=== PATIENT | male | born 1945 | race Caucasian/White ===

== ENCOUNTER 2022-03-01 16:34 | Inpatient (IN) ==
[2022-03-01] MEDS ORDERED: ONDANSETRON INJ 2 MG/ML 2 ML VIAL IV STA (16:54)
--- NOTE | 2022-03-01 16:58 | Emergency Department Note ---
Impression & Plan Fall, Closed fracture of right hip ED Provider Note NAME: ANGELA MATHIS AGE: 76 SEX: M : 1945 ARRIVES VIA: Ambulance INFORMANT: Patient, EMS ED PROVIDER(S): Ryan Lomeli DO CHIEF COMPLAINT: Fall HPI: Patient is a 76-year-old male who presented to the emergency department for an evaluation after fall. The patient had a fall from 2 steps up. He landed on his right side. He struck the right side of his head he also injured his right hip. He was unable to stand and put any weight on his right lower extremity. 9 11 was called and the patient arrived at the emergency department via ambulance. He has a history of hypertension as well as diabetes. He was treated with pain medication prior to arrival. He states this pain is somewhat improved. He denies having any vomiting. He denies having any chest pain or abdominal pain. He denies having any back pain. The patient states that his pain is moderate to severe and worse with any movement or ambulation. ROS: See above HPI for pertinent positives & negatives. A total of 10 systems reviewed and were otherwise negative. PAST MEDICAL HISTORY: See Below PAST SURGICAL HISTORY: See Below FAMILY HISTORY: See Below SOCIAL HISTORY: See Below HOME MEDICATIONS: See Below ALLERGIES: See Below VITALS: See Below PHYSICAL EXAMINATION: GENERAL: The patient is awake and alert. Very anxious appearing. EYES: The conjunctivae are clear. The pupils are round and reactive. EARS, NOSE, MOUTH AND THROAT: The nose is without any evidence of any deformity. NECK: The neck is nontender and supple. RESPIRATORY: Normal respiratory effort is noted there is no evidence of wheezing rhonchi or rales CARDIOVASCULAR: Regular rate and rhythm noted there no murmurs rubs or gallops normal S1 normal S2. GASTROINTESTINAL: The abdomen is soft. Abdomen is nontender. MUSCULOSKELETAL/EXTREMITIES: External rotation is noted of the right lower extr emity. There is mild shortening. There is no swelling in the lower extremities. SKIN: There is no obvious evidence of any rash. There are no petechiae, pallor or cyanosis noted. Pulses are symmetric in both feet. NEUROLOGIC: Patient is awake alert and oriented x3 MEDICAL DECISION MAKING: The patient is a 76-year-old male who presented to the emergency department for an evaluation of right hip pain. The patient fell from a standing position but he was on a step. The patient had an injury to his head as well as his right hip. The patient was treated with IV pain medication in the emergency department. He was reevaluated multiple times. On x-ray he was found have signs of a right-sided hip fracture. I discussed his condition with the on-call [facility] hospitalist. They have agreed to evaluate the patient in the emergency department for further management and disposition. Triage Nursing notes reviewed. Prior medical records reviewed Vital Signs: reviewed and remarkable for elevated blood pressure. Differential diagnosis: Fracture, dislocation, neurovascular compromise, compartment syndrome, soft tissue injury, as well as other pathologies. ER treatment provided: See below Diagnostics interpreted by me: ECG: EKG was obtained in the emergency department. My interpretation is sinus rhythm at 81 bpm. First-degree AV block was noted. There was no ectopy. Early transition was noted. This was compared to a tracing from April 08, 2015. No changes were noted. Cardiac Monitoring: An order was placed for continuous cardiac monitoring. The monitor shows a rate of 76 bpm with sinus rhythm. Laboratory studies: As stated above and show below. Imaging studies: See below Consultation(s): I discussed this case with Peg who is on-call for the [facility]. Past Med/Surg History Medical History Depression DM type 2 (diabetes mellitus, type 2) Dyslipidemia GERD (gastroesophageal reflux disease) Hypertension RLS (restless legs syndrome) Surgical History No pertinent past surgical history Family History Father Hypertension Social History Smoking Status: Former smoker Tobacco Type: Cigarettes Hx Alcohol Use: No Hx Substance Use: No Preferred Language: Australian Communication Ability: Effective Dry Cleaning Checker Required: No Beliefs That Will Affect Care: None Current Living Situation: Spouse Other Information That Helps Us Care for You: No Feels Safe at Home: Yes Safety Concerns: Feels Safe At This Time Assistive Devices: Denture - Upper and Glasses Allergies Allergies Allergy/AdvReac Type Severity Reaction Status Date / Time Penicillins Allergy Unknown unsure Verified 03/01/22 19:10 Home Meds Home Medications Medication Instructions Recorded Confirmed atenolol 50 mg tablet (Tenormin) 50 mg PO BID #0 tabs 04/08/15 03/01/22 simvastatin 20 mg tablet (Zocor) 20 mg PO PM #0 tabs 04/08/15 03/01/22 metformin 500 mg tablet 1,000 mg PO QAM 07/19/19 03/01/22 aspirin 81 mg tablet,delayed 81 mg PO DAILY 03/01/22 03/01/22 release carbidopa 25 mg-levodopa 250 mg 1 tab PO HS 03/01/22 03/01/22 tablet citalopram 20 mg tablet 20 mg PO DAILY 03/01/22 03/01/22 famotidine 40 mg tablet 40 mg PO DAILY 03/01/22 03/01/22 hydrochlorothiazide 25 mg tablet 25 mg PO DAILY 03/01/22 03/01/22 lisinopril 10 mg tablet 10 mg PO DAILY 03/01/22 03/01/22 metformin 500 mg tablet 500 mg PO .MARCEL MEAL 03/01/22 03/01/22 Results & Data (ED) Vital Signs Vital Signs - 24 hr 03/01/22 16:46 03/01/22 16:49 03/01/22 16:50 Temperature 36.8 C Temperature Source Oral Pulse Rate 80 79 80 Pulse Rate from SpO2 Sensor 79 80 Pulse Rhythm Regular Pulse Strength Normal Respiratory Rate 20 16 16 Respiratory Effort / Characteristics Non-Labored Respiratory Depth Normal Blood Pressure 186/89 H Blood Pressure Mean 121 Pulse Oximetry 93 88 L 88 L Oxygen Delivery Method Room Air Sepsis Recent Fever Within 48 Hours No Sepsis New/Unexplained Change in Mental Status N/A Sepsis Action Taken by Nursing No Action Required 03/01/22 17:00 03/01/22 17:00 03/01/22 17:10 Temperature Temperature Source Pulse Rate 80 80 Pulse Rate from SpO2 Sensor 78 79 Pulse Rhythm Pulse Strength Respiratory Rate 14 19 Respiratory Effort / Characteristics Respiratory Depth Blood Pressure 193/114 H Blood Pressure Mean 140 Pulse Oximetry 100 98 Oxygen Delivery Method Sepsis Recent Fever Within 48 Hours Sepsis New/Unexplained Change in Mental Status Sepsis Action Taken by Nursing 03/01/22 17:50 03/01/22 17:50 03/01/22 18:00 Temperature Temperature Source Pulse Rate 77 Pulse Rate from SpO2 Sensor Pulse Rhythm Pulse Strength Respiratory Rate 14 Respiratory Effort / Characteristics Respiratory Depth Blood Pressure 187/87 H 172/84 H Blood Pressure Mean 120 113 Pulse Oximetry Oxygen Delivery Method Sepsis Recent Fever Within 48 Hours Sepsis New/Unexplained Change in Mental Status Sepsis Action Taken by Nursing 03/01/22 18:00 03/01/22 18:10 03/01/22 18:20 Temperature Temperature Source Pulse Rate 79 83 79 Pulse Rate from SpO2 Sensor Pulse Rhythm Pulse Strength Respiratory Rate 17 17 16 Respiratory Effort / Characteristics Respiratory Depth Blood Pressure Blood Pressure Mean Pulse Oximetry Oxygen Delivery Method Sepsis Recent Fever Within 48 Hours Sepsis New/Unexplained Change in Mental Status Sepsis Action Taken by Nursing 03/01/22 18:30 03/01/22 18:30 Temperature Temperature Source Pulse Rate 77 Pulse Rate from SpO2 Sensor Pulse Rhythm Pulse Strength Respiratory Rate 16 Respiratory Effort / Characteristics Respiratory Depth Blood Pressure 175/87 H Blood Pressure Mean 116 Pulse Oximetry Oxygen Delivery Method Sepsis Recent Fever Within 48 Hours Sepsis New/Unexplained Change in Mental Status Sepsis Action Taken by Usp Medications Current Medication List: was personally reviewed by me Laboratory Data Attestation: I reviewed the patient's lab results. Result diagrams: 03/01/22 18:00 03/01/22 18:00 Lab Results 03/01/22 03/01/22 03/01/22 Range/Units 17:10 18:00 18:00 WBC 6.30 (4.8-10.8) K/ul RBC 4.05 L (4.63-6.08) M/uL Hgb 11.4 L (14.0-18.0) g/dl Hct 34.1 L (40.1-51.0) % MCV 84.2 (80.0-100.0) fL MCH 28.1 (25.0-34.0) pg MCHC 33.4 (32.0-36.0) g/dL RDW Std Deviation 40.1 (36.4-46.3) fL RDW Coeff of Herb 13.0 (11.5-14.5) % Plt Count 224 (130-400) K/uL MPV 9.3 L (9.4-12.4) fL Immature Gran % (Auto) 1.1 % Neut % (Auto) 62.2 % Lymph % (Auto) 21.1 % [place] % (Auto) 8.4 % Eos % (Auto) 6.7 % Baso % (Auto) 0.5 % Neut # (Auto) 3.92 (1.4-6.5) K/uL Lymph # (Auto) 1.33 (1.2-3.4) K/uL [place] # (Auto) 0.53 (0.24-0.82) K/uL Eos # (Auto) 0.42 (0-0.50) K/uL Baso # (Auto) 0.03 (0-0.2) K/uL Immature Gran # (Auto) 0.07 H (0.00-0.02) K/uL PT INR APTT PTT Ratio Sodium (136-145) mmol/L Potassium (3.5-5.1) mmol/L Chloride (98-107) mmol/L Carbon Dioxide (21-32) mmol/L Anion Gap (3-11) BUN (6-23) mg/dl Creatinine (0.6-1.4) mg/dl Est Cr Clr Drug Dosing ml/min Est GFR ( Amer) ml/min Est GFR (Non-Af Amer) ml/min BUN/Creatinine Ratio (10-20) Glucose (70-99(Fasting)) mg/dl Calcium (8.5-10.1) mg/dl Total Bilirubin (0.2-1.0) mg/dl AST (13-39) U/L ALT (7-52) U/L Alkaline Phosphatase (34-104) U/L Troponin I High Sens 7.3 (0-20) pg/ml Total Protein (6.0-8.3) gm/dl Albumin (3.4-5.0) gm/dl Globulin (2.5-4.0) gm/dl Albumin/Globulin Ratio (0.9-2) Lipase (11-82) U/L SARS-CoV-2, RNA, NAAT NEGATIVE (NEGATIVE) 03/01/22 03/01/22 Range/Units 18:00 18:00 WBC (4.8-10.8) K/ul RBC (4.63-6.08) M/uL Hgb (14.0-18.0) g/dl Hct (40.1-51.0) % MCV (80.0-100.0) fL MCH (25.0-34.0) pg MCHC (32.0-36.0) g/dL RDW Std Deviation (36.4-46.3) fL RDW Coeff of Herb (11.5-14.5) % Plt Count (130-400) K/uL MPV (9.4-12.4) fL Immature Gran % (Auto) % Neut % (Auto) % Lymph % (Auto) % [place] % (Auto) % Eos % (Auto) % Baso % (Auto) % Neut # (Auto) (1.4-6.5) K/uL Lymph # (Auto) (1.2-3.4) K/uL [place] # (Auto) (0.24-0.82) K/uL Eos # (Auto) (0-0.50) K/uL Baso # (Auto) (0-0.2) K/uL Immature Gran # (Auto) (0.00-0.02) K/uL PT Cancelled INR Cancelled APTT Cancelled PTT Ratio Cancelled Sodium 131 L (136-145) mmol/L Potassium 4.3 (3.5-5.1) mmol/L Chloride 96 L (98-107) mmol/L Carbon Dioxide 29 (21-32) mmol/L Anion Gap 6 (3-11) BUN 17 (6-23) mg/dl Creatinine 0.91 (0.6-1.4) mg/dl Est Cr Clr Drug Dosing 88.4 ml/min Est GFR ( Amer) 93.9 ml/min Est GFR (Non-Af Amer) 81.0 ml/min BUN/Creatinine Ratio 18.7 (10-20) Glucose 108 H (70-99(Fasting)) mg/dl Calcium 9.2 (8.5-10.1) mg/dl Total Bilirubin 0.8 (0.2-1.0) mg/dl AST 24 (13-39) U/L ALT 23 (7-52) U/L Alkaline Phosphatase 68 (34-104) U/L Troponin I High Sens (0-20) pg/ml Total Protein 7.6 (6.0-8.3) gm/dl Albumin 3.9 (3.4-5.0) gm/dl Globulin 3.7 (2.5-4.0) gm/dl Albumin/Globulin Ratio 1.1 (0.9-2) Lipase 14 (11-82) U/L SARS-CoV-2, RNA, NAAT (NEGATIVE) Administered Medications Acetaminophen (Acetaminophen 500 Mg Tab) 1,000 mg PO Q8H ZULEYMA Stop: 03/31/22 21:21 Last Admin: 03/01/22 21:57 Dose: 1,000 mg Documented By: ZOILA Atenolol (Atenolol 50 Mg Tablet) 50 mg PO BID ZULEYMA Stop: 03/31/22 21:21 Last Admin: 03/01/22 21:58 Dose: 50 mg Documented By: ZOILA Carbidopa/Levodopa (Carbidopa/Levodopa 25-250 1 Ea Tab) 1 tab PO HS ZULEYMA Stop: 03/31/22 21:21 Last Admin: 03/01/22 21:58 Dose: 1 tab Documented By: ZOILA Insulin Aspart (Insulin Aspart Per Unit) 0 units SC ACHS [facility] Stop: 03/31/22 21:21 Last Admin: 03/01/22 21:58 Dose: Not Given Documented By: ZOILA Morphine Sulfate (Morphine Sulfate 4 Mg/Ml 1 Ml Carp\Vial) 4 mg IV Q4H PRN PRN Reason: Pain (7,8,9,10) Stop: 03/15/22 21:21 Last Admin: 03/01/22 21:57 Dose: 4 mg Documented By: ZOILA Senna/Docusate Sodium (Docusate Sodium/Senna 50/8.6mg Tab) 2 tab PO HS [facility] Stop: 03/31/22 21:21 Last Admin: 03/01/22 21:57 Dose: 2 tab Documented By: ZOILA Simvastatin (Simvastatin 20 Mg Tab) 20 mg PO PM ZULEYMA Stop: 03/31/22 21:21 Last Admin: 03/01/22 21:58 Dose: 20 mg Documented By: ZOILA Discontinued Medications Fentanyl Citrate (Fentanyl Citrate 100 Mcg/2 Ml Vial) 50 mcg IV Q15M PRN PRN Reason: Pain Stop: 03/15/22 16:53 Last Admin: 03/01/22 18:23 Dose: 50 mcg Documented By: Admin: 03/01/22 17:15 Dose: 50 mcg Documented By: JAIME Fentanyl Citrate (Fentanyl Citrate 100 Mcg/2 Ml Vial) 50 mcg IV NOW STA Stop: 03/01/22 20:14 Last Admin: 03/01/22 20:14 Dose: 50 mcg Documented By: MUSTAPHA Ondansetron HCl (Ondansetron Inj 2 Mg/Ml 2 Ml Vial) 4 mg IV NOW STA Stop: 03/01/22 16:55 Last Admin: 03/01/22 17:13 Dose: 4 mg Documented By: GGG Imaging Data Radiologist's Impression: Cervical Spine CT 03/01/22 16:54 CT OF THE CERVICAL SPINE WITHOUT CONTRAST CLINICAL HISTORY: Fall. COMPARISON STUDY: No previous studies for comparison. TECHNIQUE: Helical axial images of the cervical spine were obtained without IV contrast. Sagittal and coronal reconstructions were viewed. Automated exposure control was utilized for the study. A dose lowering technique was utilized adhering to the principles of ALARA. FINDINGS: Alignment of the cervical spine is anatomic. Vertebral body heights are maintained. No acute cervical spine fracture or subluxation is present. There is no prevertebral edema. Facet joints are intact. Moderate multilevel disc space narrowing, osteophytosis and facet arthrosis is present. Minimal secretions within the sphenoid sinuses. IMPRESSION: No acute cervical spine fracture or subluxation. ACT 112: Negative or not required by law. Electronically signed by: Kashmir Presley M.D. 03/01/2022 6:[address] 03/01/22 16:54 CT OF THE HEAD WITHOUT CONTRAST CLINICAL HISTORY: Fall. COMPARISON STUDY: No previous studies for comparison. CT DOSE: 1287.95 mGycm TECHNIQUE: Helical axial images of the head were obtained without IV contrast. Automated exposure control was utilized for the study. A dose lowering technique was utilized adhering to the principles of ALARA. FINDINGS: No acute intracranial hemorrhage, midline shift or mass effect is present. The ventricular system is unremarkable. The basal cisterns are patent. No extra-axial collections are present. There are no findings to suggest acute dural sinus thrombosis or acute territorial infarct. There is no acute calvarial fracture. Moderate ethmoid sinus mucosal thickening is present. IMPRESSION: 1. No acute intracranial findings. 2. No acute calvarial fracture. 3. Ethmoid sinus mucosal thickening. ACT 112: Negative or not required by law. Electronically signed by: Kashmir Presley M.D. 03/01/2022 5:56 PM Hip/Pelvis X-Ray 03/01/22 16:54 XR hip RT 2V w pelvis CLINICAL HISTORY: fall TECHNIQUE: 2 views of the right hip and single frontal view of the pelvis were obtained. Comparison: None available at the time of this dictation. FINDINGS: There is a fracture of the femoral neck with overriding of fragments. Mild degenerative changes are seen in the joints. Soft tissue swelling is seen. IMPRESSION: Right femoral neck fracture with associated soft tissue swelling. ACT 112: Negative or not required by law. Electronically signed by: Kalen Payne M.D. 03/01/2022 5:44 PM Chest X-Ray 03/01/22 16:55 XR chest 1V portable CLINICAL HISTORY: Chest pain, nonspecific TECHNIQUE: Single frontal radiograph of the chest was obtained. Comparison: None available at the time of this dictation. FINDINGS: No lines and tubes are seen. The cardiomediastinal silhouette is normal. Lungs are underinflated but clear. No evidence of pleural effusion or pneumothorax. IMPRESSION: Lungs are underinflated without evidence of acute abnormality. ACT 112: Negative or not required by law. Electronically signed by: Kalen Payne M.D. 03/01/2022 5:43 PM Discharge Plan Visit Data Chief Complaint: Fall ED Provider: Ryan Lomeli Discharge Problem: Fall, Closed fracture of right hip Patient Disposition: Admitted As Inpatient Discharge Instructions Interventions: ED Discharge Assessment Last Done: 03/01/22 20:40 : Fall Qualifiers: Encounter type: initial encounter Qualified Code(s): W19.XXXA - Unspecified fall, initial encounter Closed fracture of right hip Qualifiers: Encounter type: initial encounter Qualified Code(s): S72.001A - Fracture of unspecified part of neck of right femur, initial encounter for closed fracture
[2022-03-01] MEDS: fentaNYL citrate 100 MCG/2 ML VIAL IV PRN ×2 (17:15→18:23)
--- NOTE | 2022-03-01 17:45 | XRay Report ---
XR hip RT 2V w pelvis CLINICAL HISTORY: fall TECHNIQUE: 2 views of the right hip and single frontal view of the pelvis were obtained. Comparison: None available at the time of this dictation. FINDINGS: There is a fracture of the femoral neck with overriding of fragments. Mild degenerative changes are s een in the joints. Soft tissue swelling is seen. IMPRESSION: Right femoral neck fracture with associated soft tissue swelling. ACT 112: Negative or not required by law. Electronically signed by: Kalen Payne M.D. 03/01/2022 5:44 PM
--- NOTE | 2022-03-01 17:45 | XRay Report ---
XR chest 1V portable CLINICAL HISTORY: Chest pain, nonspecific TECHNIQUE: Single frontal radiograph of the chest was obtained. Comparison: None available at the time of this dictation. FINDINGS: No lines and tubes are seen. The cardiomediastinal silhouette is normal. Lungs are underinflated but clear. No evidence of pleural effusion or pneumothorax. IMPRESSION: Lungs are underinflated without evidence of acute abnormality. ACT 112: Negative or not required by law. Electronically signed by: Kalen Payne M.D. 03/01/2022 5:43 PM
--- NOTE | 2022-03-01 17:58 | CT Scan Report ---
CT OF THE HEAD WITHOUT CONTRAST CLINICAL HISTORY: Fall. COMPARISON STUDY: No previous studies for comparison. CT DOSE: 1287.95 mGycm TECHNIQUE: Helical axial images of the head were obtained without IV contrast. Automated exposure con trol was utilized for the study. A dose lowering technique was utilized adhering to the principles o f ALARA. FINDINGS: No acute intracranial hemorrhage, midline shift or mass effect is present. The ventricular system is unremarkable. The basal cisterns are patent. No extra-axial collections are present. There are no findings to suggest acute dural sinus thrombosis or acute territorial infarct. There is no acu te calvarial fracture. Moderate ethmoid sinus mucosal thickening is present. IMPRESSION: 1. No acute intracranial findings. 2. No acute calvarial fracture. 3. Ethmoid sinus mucosal thickening. ACT 112: Negative or not required by law. Electronically signed by: Kashmir Presley M.D. 03/01/2022 5:56 PM
--- NOTE | 2022-03-01 18:02 | CT Scan Report ---
CT OF THE CERVICAL SPINE WITHOUT CONTRAST CLINICAL HISTORY: Fall. COMPARISON STUDY: No previous studies for comparison. TECHNIQUE: Helical axial images of the cervical spine were obtained without IV contrast. Sagittal a nd coronal reconstructions were viewed. Automated exposure control was utilized for the study. A do se lowering technique was utilized adhering to the principles of ALARA. FINDINGS: Alignment of the cervical spine is anatomic. Vertebral body heights are maintained. No acut e cervical spine fracture or subluxation is present. There is no prevertebral edema. Facet joints are intact. Moderate multilevel disc space narrowing, osteophytosis and facet arthrosis is present. Min imal secretions within the sphenoid sinuses. IMPRESSION: No acute cervical spine fracture or subluxation. ACT 112: Negative or not required by law. Electronically signed by: Kashmir Presley M.D. 03/01/2022 6:00 PM
[2022-03-01 18:24] LABS: Basophils # (auto) 0.03 K/uL (0-0.2); Basophils % (auto) 0.5 %; Eosinophils # (auto) 0.42 K/uL (0-0.50); Eosinophils % (auto) 6.7 %; Hematocrit (blood only) 34.1 % (40.1-51.0); Hemoglobin 11.4 g/dl (14.0-18.0); Immature Granulocytes # (auto) 0.07 K/uL (0.00-0.02); Immature Granulocytes % (auto) 1.1 %; Lymphocytes # (auto) 1.33 K/uL (1.2-3.4); Lymphocytes % (auto) 21.1 %; Mean Corpuscular Hemoglobin 28.1 pg (25.0-34.0); Mean Corpuscular Hgb Conc 33.4 g/dL (32.0-36.0); Mean Corpuscular Volume 84.2 fL (80.0-100.0); Mean Platelet Volume 9.3 fL (9.4-12.4); Monocytes # (auto) 0.53 K/uL (0.24-0.82); Monocytes % (auto) 8.4 %; Neutrophils # (auto) 3.92 K/uL (1.4-6.5); Neutrophils % (auto) 62.2 %; Platelet Count 224 K/uL (130-400); RDW Standard Deviation 40.1 fL (36.4-46.3); Red Blood Count 4.05 M/uL (4.63-6.08)
[2022-03-01 18:41] LABS: Albumin Globulin Ratio 1.1 (0.9-2); Albumin Level 3.9 gm/dl (3.4-5.0); BUN Creatinine Ratio 18.7 (10-20); Bilirubin,Total 0.8 mg/dl (0.2-1.0); Calcium 9.2 mg/dl (8.5-10.1); Creatinine Clr Calc Pharmacy 88.4 ml/min; Est GFR (African American) 93.9 ml/min; Globulin 3.7 gm/dl (2.5-4.0); Potassium 4.3 mmol/L (3.5-5.1); Total Protein 7.6 gm/dl (6.0-8.3)
[2022-03-01 19:24] LABS: Partial Thromboplastin Time 28.2 Seconds (21.0-31.0)
--- NOTE | 2022-03-01 20:00 | History & Physical Report ---
Date of Service March 01, 2022 Assessment & Plan (1) Fracture of femoral neck, right: Plan: Admit to [facility] Patient presenting from home for evaluation after a mechanical fall and right hip pain X-ray shows right femoral neck fracture Ortho consult - Dr. Salmeron notified EKG and CXR reviewed. Patient considered acceptable risk to proceed to surgery. N.p.o. after midnight Postop management as per Ortho (2) Hypertension: Plan: BP elevated on presentation, likely secondary to pain. BP improved once pain has been controlled. Continue home meds including atenolol, HCTZ, lisinopril (3) DM type 2 (diabetes mellitus, type 2): Plan: Hgb A1c 6.9 09/2021 Hold oral agents and utilize NovoLog per protocol while hospitalized (4) Dyslipidemia: Plan: Continue statin (5) RLS (restless legs syndrome): Plan: Continue carbidopa-levodopa HS (6) GERD (gastroesophageal reflux disease): Plan: Continue H2 jo-ann (7) Depression: Plan: Continue citalopram DVT prophylaxis SCDs due to likely surgical procedure tomorrow. Postop DVT prophylaxis as per Ortho. History of Present Illness Chief Complaint: Fall, right hip pain Primary Care Provider: Arin Tay PA-C 76-year-old male with PMH DM type II, HTN, GERD, RLS, and other problems listed below who presents to the ED for evaluation after a fall and subsequent right hip pain. Patient reports that he was walking up the stairs into his home when he missed stepped and fell down about 2 stairs onto his right side. Patient reports also striking his head. He denies any associated loss of consciousness or preceding chest pain, shortness of breath, lightheadedness, dizziness. Patient was unable to get up off the ground and EMS was called and brought to the ED for further evaluation. Patient reports he otherwise has been feeling well recently. Patient reports that he is fairly active and was just returning home from [facility] today. Patient states that he can climb a flight of stairs without difficulty. Patient denies any recent episodes of chest pain or shortness of breath. No other recent illnesses, fevers, chills. He denies abdominal pain, nausea, vomiting, diarrhea. No urinary symptoms. In the ED, patient is found to have a right femoral neck fracture. He was moderately hypertensive on presentation however this improved with pain control. Patient received IV Zofran and IV fentanyl. Allergies Allergy/AdvReac Type Severity Reaction Status Date / Time Penicillins Allergy Unknown unsure Verified 03/01/22 19:10 Home Medications Medication Instructions Recorded Confirmed Type atenolol 50 mg tablet (Tenormin) 50 mg PO BID #0 tabs 04/08/15 03/01/22 History simvastatin 20 mg tablet (Zocor) 20 mg PO PM #0 tabs 04/08/15 03/01/22 History metformin 500 mg tablet 1,000 mg PO QAM 07/19/19 03/01/22 History aspirin 81 mg tablet,delayed 81 mg PO DAILY 03/01/22 03/01/22 History release carbidopa 25 mg-levodopa 250 mg 1 tab PO HS 03/01/22 03/01/22 History tablet citalopram 20 mg tablet 20 mg PO DAILY 03/01/22 03/01/22 History famotidine 40 mg tablet 40 mg PO DAILY 03/01/22 03/01/22 History hydrochlorothiazide 25 mg tablet 25 mg PO DAILY 03/01/22 03/01/22 History lisinopril 10 mg tablet 10 mg PO DAILY 03/01/22 03/01/22 History metformin 500 mg tablet 500 mg PO .MARCEL MEAL 03/01/22 03/01/22 History Past Med/Surg History Medical History Depression DM type 2 (diabetes mellitus, type 2) Dyslipidemia GERD (gastroesophageal reflux disease) Hypertension RLS (restless legs syndrome) Surgical History No pertinent past surgical history Family History Father Hypertension Social History Smoking Status: Former smoker Tobacco Type: Cigarettes Hx Alcohol Use: No Hx Substance Use: No Preferred Language: Romanian Communication Ability: Effective 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 Beliefs That Will Affect Care: None Current Living Situation: Spouse Other Information That Helps Us Care for You: No Feels Safe at Home: Yes Safety Concerns: Feels Safe At This Time Assistive Devices: Denture - Upper and Glasses Review of Systems Review of Systems: ROS per HPI, all other systems reviewed and negative Physical Exam Constitutional: WD/WN, vitals as above Eyes: PERRL, conjunctivae normal, anicteric sclerae ENMT: external ear and nose normal, oropharynx normal Respiratory: normal respiratory effort, lungs clear to auscultation Cardiovascular: Rate/Rhythm: regular rate and regular rhythm Vessels: normal peripheral pulses Extremities: no edema Gastrointestinal (Abdomen): normal bowel sounds, soft, nontender, no hepatosplenomegaly Musculoskeletal: Pain with palpation over right hip, CSM checks intact RLE Skin: no rashes, warm and dry Neurologic: PERRL, EOMI, accommodation nl, no face palsy, no dysarthria Psychiatric: A+Ox3, euthymic affect Results & Data Results & Data ([facility]) Vital Signs (Past 12 Hours) Vital Signs Temp Pulse Resp BP Pulse Ox O2 Del Method 03/01/22 16:46 36.8 C 80 20 186/89 H 93 Room Air Laboratory Results Short CBC 03/01/22 Range/Units 18:00 WBC 6.30 (4.8-10.8) K/ul Hgb 11.4 L (14.0-18.0) g/dl Hct 34.1 L (40.1-51.0) % Plt Count 224 (130-400) K/uL BMP 03/01/22 18:00 Sodium 131 L Potassium 4.3 Chloride 96 L Carbon Dioxide 29 BUN 17 Creatinine 0.91 Glucose 108 H Calcium 9.2 Liver Function 03/01/22 Range/Units 18:00 Total Bilirubin 0.8 (0.2-1.0) mg/dl AST 24 (13-39) U/L ALT 23 (7-52) U/L Alkaline Phosphatase 68 (34-104) U/L Albumin 3.9 (3.4-5.0) gm/dl Diagnostic Findings Cervical Spine CT 03/01/22 16:54 CT OF THE CERVICAL SPINE WITHOUT CONTRAST CLINICAL HISTORY: Fall. COMPARISON STUDY: No previous studies for comparison. TECHNIQUE: Helical axial images of the cervical spine were obtained without IV contrast. Sagittal and coronal reconstructions were viewed. Automated exposure control was utilized for the study. A dose lowering technique was utilized adhering to the principles of ALARA. FINDINGS: Alignment of the cervical spine is anatomic. Vertebral body heights a re maintained. No acute cervical spine fracture or subluxation is present. There is no prevertebral edema. Facet joints are intact. Moderate multilevel disc space narrowing, osteophytosis and facet arthrosis is present. Minimal secretions within the sphenoid sinuses. IMPRESSION: No acute cervical spine fracture or subluxation. ACT 112: Negative or not required by law. Electronically signed by: Kashmir Presley M.D. 03/01/2022 6:[address] 03/01/22 16:54 CT OF THE HEAD WITHOUT CONTRAST CLINICAL HISTORY: Fall. COMPARISON STUDY: No previous studies for comparison. CT DOSE: 1287.95 mGycm TECHNIQUE: Helical axial images of the head were obtained without IV contrast. Automated exposure control was utilized for the study. A dose lowering technique was utilized adhering to the principles of ALARA. FINDINGS: No acute intracranial hemorrhage, midline shift or mass effect is present. The ventricular system is unremarkable. The basal cisterns are patent. No extra-axial collections are present. There are no findings to suggest acute dural sinus thrombosis or acute territorial infarct. There is no acute calvarial fracture. Moderate ethmoid sinus mucosal thickening is present. IMPRESSION: 1. No acute intracranial findings. 2. No acute calvarial fracture. 3. Ethmoid sinus mucosal thickening. ACT 112: Negative or not required by law. Electronically signed by: Kashmir Presley M.D. 03/01/2022 5:56 PM Hip/Pelvis X-Ray 03/01/22 16:54 XR hip RT 2V w pelvis CLINICAL HISTORY: fall TECHNIQUE: 2 views of the right hip and single frontal view of the pelvis were obtained. Comparison: None available at the time of this dictation. FINDINGS: There is a fracture of the femoral neck with overriding of fragments. Mild degenerative changes are seen in the joints. Soft tissue swelling is seen. IMPRESSION: Right femoral neck fracture with associated soft tissue swelling. ACT 112: Negative or not required by law. Electronically signed by: Kalen Payne M.D. 03/01/2022 5:44 PM Chest X-Ray 03/01/22 16:55 XR chest 1V portable CLINICAL HISTORY: Chest pain, nonspecific TECHNIQUE: Single frontal radiograph of the chest was obtained. Comparison: None available at the time of this dictation. FINDINGS: No lines and tubes are seen. The cardiomediastinal silhouette is normal. Lungs are underinflated but clear. No evidence of pleural effusion or pneumothorax. IMPRESSION: Lungs are underinflated without evidence of acute abnormality. ACT 112: Negative or not required by law. Electronically signed by: Kalen Payne M.D. 03/01/2022 5:43 PM Code Status & VTE Plan VTE Prophylaxis Plan VTE Prophylaxis will be ordered: Yes Supervising Physician Co-Signing Physician Notes I have seen and examined the patient and have discussed the case with the provider above. I agree with the assessment and plan as stated. 76 yo M presents with a mechanical fall backwards with subsequent right hip fracture. He reports hitting his head on the sidewalk which she states does not hurt at this time. There is no laceration or bruise that is evident on physical exam. He denies any headache at this time or other pain. He reports no history of issues with anesthesia either with himself or others in his family. He denies any history of blood clots. He denies any chest pain or shortness of breath in the last 6 months and is a very active 76-year-old man going bowling frequently. He reports being able to climb a flight of stairs without stopping, only limited by his occasional leg pains. He takes baby aspirin daily and is a diabetic on medications. Kidney function is normal. He has evidence of mild anemia on CBC but this is around his baseline H&H of 12 and 35. On physical exam he is well-nourished and well- developed and in no acute distress. Heart rate is regular with regular rhythm. He is not tachypneic and is mentating clearly. Lungs are clear to auscultation and abdomen is soft nontender nondistended. Extremities are warm and well- perfused. Head is noncephalic atraumatic. Pupils are equal bilaterally. Overall this is a 76-year-old man with a traumatic right hip fracture after fall. It is likely he will need some type of operative fix to his fracture. There is no further work-up that would optimize him for surgery at this point and he should proceed to surgery if orthopedics feels that is in his best interest. He is a very active 76-year-old and any chance that a procedure will help him get back on his feet quickly would be important for his quality of life. The plan was discussed with his and daughter at bedside and all questions were answered to their satisfaction. DO Sb
[2022-03-01] MEDS ORDERED: fentaNYL citrate 100 MCG/2 ML VIAL IV STA (20:13)
--- NOTE | 2022-03-01 20:22 | XRay Report ---
XR ankle RT 2V CLINICAL HISTORY: fall, right ankle pain COMPARISON: None FINDINGS: Alignment of the right ankle is anatomic. No acute fracture. Talar dome is intact. Vascula r calcification is incidentally noted within the calf vessels. IMPRESSION: No fracture or dislocation within the right ankle. ACT 112: Negative or not required by law. Electronically signed by: Kashmir Presley M.D. 03/01/2022 8:20 PM
[2022-03-01] MEDS ORDERED: GLUCOSE 10 TAB/TUBE PO PRN (21:22)
[2022-03-01] MEDS ORDERED: bisacodyL 10 MG SUPP PR PRN (21:22)
[2022-03-01] MEDS ORDERED: ONDANSETRON INJ 2 MG/ML 2 ML VIAL IV PRN ×2 (21:22)
[2022-03-01] MEDS ORDERED: MAGNESIUM HYDROXIDE SUSP 30 ML UDC PO PRN (21:22)
[2022-03-01] MEDS ORDERED: NALOXONE HCL 0.4 MG/1 ML VIAL/CARP IV PRN (21:22)
[2022-03-01] MEDS ORDERED: DEXTROSE 50% 50 ML SYRINGE IV PRN (21:22)
[2022-03-01] MEDS ORDERED: GLUCAGON FOR INJ 1 MG VIAL SQ PRN (21:22)
[2022-03-01] MEDS ORDERED: GLUCOSE 40% GEL 15 GM TUBE PO PRN (21:22)
[2022-03-01] MEDS ORDERED: CARBOHYDRATES FOR HYPOGLYCEMIA PO PRN (21:22)
[2022-03-01] MEDS: DOCUSATE SODIUM/SENNA 50/8.6MG TAB PO SCH (21:57)
[2022-03-01] MEDS: ACETAMINOPHEN 500 MG TAB PO SCH (21:57)
[2022-03-01] MEDS: MoRPHine SULFATE 4 MG/ML 1 ML CARP\\VIAL IV PRN (21:57)
[2022-03-01] MEDS: ATENOLOL 50 MG TABLET PO SCH (21:58)
[2022-03-01] MEDS: SIMVASTATIN 20 MG TAB PO SCH (21:58)
[2022-03-01] MEDS: INSULIN ASPART PER UNIT SC SCH (21:58)
[2022-03-01] MEDS: CARBIDOPA/LEVODOPA 25-250 1 EA TAB PO SCH (21:58)
[2022-03-02] MEDS: MoRPHine SULFATE 4 MG/ML 1 ML CARP\\VIAL IV PRN ×4 (02:32→21:28)
[2022-03-02] MEDS ORDERED: ceFAZolin 2000MG 2,000 MG/15 ML SYR IV SCH ×2 (06:00→21:00)
[2022-03-02] MEDS ORDERED: TRANEXAMIC ACID / 0.7% NACL 1,000 MG/100 ML BAG IV SCH ×3 (06:00→06:30)
[2022-03-02] MEDS: ACETAMINOPHEN 500 MG TAB PO SCH ×3 (06:11→21:13)
[2022-03-02 06:12] LABS: Hematocrit (blood only) 33.1 % (40.1-51.0); Hemoglobin 10.9 g/dl (14.0-18.0); Mean Corpuscular Hemoglobin 27.7 pg (25.0-34.0); Mean Corpuscular Hgb Conc 32.9 g/dL (32.0-36.0); Mean Platelet Volume 9.1 fL (9.4-12.4); Platelet Count 188 K/uL (130-400); RDW Coefficient of Variation 13.2 % (11.5-14.5); RDW Standard Deviation 39.8 fL (36.4-46.3); Red Blood Count 3.94 M/uL (4.63-6.08); White Blood Count 7.41 K/ul (4.8-10.8)
--- NOTE | 2022-03-02 06:27 | Orthopedic Consultation ---
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 After orthopedic consult discussing the patients treatment options of conservative versus surgical intervention, the patient agreed for a planned hemiarthroplasty. Since the patient was ambulatory prior to the injury and to avoid the risks of bed sores, pulmonary complications, and to give the patient the best chance for ambulation, I recommended surgery. The patient understands the risks of surgery, which include but are not limited to: bleeding, infection, re-operation, damage to nerves and arteries, continued pain, failure of the hardware, fracture, dislocation, DVT, IA, stroke, and . In addition the patient is aware of the 20-30% morbidity associated with hip fracture for up to 1 year following a hip fracture. The patient understands all of these instructions and explanations, all of their questions have been satisfactorily addressed. The patient has elected to proceed with surgery and the informed consent was signed. Continue pain control. Has been NPO after midnight. The patient was admitted to the Hospitalist service. The patient has been placed on the add-on list for today. Patient has been medically cleared. Present on Admission?: Yes History of Present Illness Reason for Consultation: Right hip fracture Requesting Physician: Polina Salmeron MD Attending Physician: Aleksandra Basurto, History of Present Illness Adán is a pleasant 76 yo male with PMHx of HTN and DM, who fell on stairs injuring his right hip. He was brought to ED where x-rays were obtained and he was found to have a femoral neck fracture. He noted that his right leg did go numb immediately after the fall. He has hip/groin pain and is unable to bare weight. He has been admitted to the hospitalist service. I was consulted for further evaluation and treatment of his right hip fracture. Allergies Allergy/AdvReac Type Severity Reaction Status Date / Time Penicillins Allergy Unknown unsure Verified 03/01/22 19:10 Home Medications Medication Instructions Recorded Confirmed Type atenolol 50 mg tablet (Tenormin) 50 mg PO BID #0 tabs 04/08/15 03/01/22 History simvastatin 20 mg tablet (Zocor) 20 mg PO PM #0 tabs 04/08/15 03/01/22 History metformin 500 mg tablet 1,000 mg PO QAM 07/19/19 03/01/22 History aspirin 81 mg tablet,delayed 81 mg PO DAILY 03/01/22 03/01/22 History release carbidopa 25 mg-levodopa 250 mg 1 tab PO HS 03/01/22 03/01/22 History tablet citalopram 20 mg tablet 20 mg PO DAILY 03/01/22 03/01/22 History famotidine 40 mg tablet 40 mg PO DAILY 03/01/22 03/01/22 History hydrochlorothiazide 25 mg tablet 25 mg PO DAILY 03/01/22 03/01/22 History lisinopril 10 mg tablet 10 mg PO DAILY 03/01/22 03/01/22 History metformin 500 mg tablet 500 mg PO .MARCEL MEAL 03/01/22 03/01/22 History Patient History Medical History Depression DM type 2 (diabetes mellitus, type 2) Dyslipidemia GERD (gastroesophageal reflux disease) Hypertension RLS (restless legs syndrome) Surgical History No pertinent past surgical history Family History Father Hypertension Social History Smoking Status: Former smoker Tobacco Type: Cigarettes Hx Alcohol Use: No Hx Substance Use: No Preferred Language: Sri Lankan Communication Ability: Effective 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 BCR < 2 sec. Wiggling toes. Shortened and externally rotated Results & Data ([facility]) Vital Signs (Past 12 Hours) Vital Signs Temp Pulse Pulse Resp BP BP Pulse Ox 03/02/22 00:00 37 C 71 20 166/83 H 95 03/01/22 21:22 36.6 C 76 18 173/79 H 95 03/01/22 20:40 03/01/22 20:10 80 13 03/01/22 20:00 81 16 03/01/22 20:00 169/92 H 03/01/22 19:50 80 15 03/01/22 19:40 80 15 03/01/22 19:30 77 15 03/01/22 19:30 151/82 H 03/01/22 19:20 80 21 03/01/22 19:10 80 17 03/01/22 19:00 78 13 03/01/22 19:00 149/77 H 03/01/22 18:57 79 17 03/01/22 18:57 158/77 H 03/01/22 18:50 80 16 03/01/22 18:40 77 18 03/01/22 18:30 77 16 03/01/22 18:30 175/87 H O2 Del Method O2 Flow Rate 03/02/22 00:00 Room Air 03/01/22 21:22 Nasal Cannula 2 03/01/22 20:40 Room Air 03/01/22 20:10 03/01/22 20:00 03/01/22 20:00 03/01/22 19:50 03/01/22 19:40 03/01/22 19:30 03/01/22 19:30 03/01/22 19:20 03/01/22 19:10 03/01/22 19:00 03/01/22 19:00 03/01/22 18:57 03/01/22 18:57 03/01/22 18:50 03/01/22 18:40 03/01/22 18:30 03/01/22 18:30 Laboratory Results Laboratory Results WBC 7.41 K/ul (4.8-10.8) 03/02/22 05:42 RBC 3.94 M/uL (4.63-6.08) L 03/02/22 05:42 Hgb 10.9 g/dl (14.0-18.0) L 03/02/22 05:42 Hct 33.1 % (40.1-51.0) L 03/02/22 05:42 MCV 84.0 fL (80.0-100.0) 03/02/22 05:42 MCH 27.7 pg (25.0-34.0) 03/02/22 05:42 MCHC 32.9 g/dL (32.0-36.0) 03/02/22 05:42 RDW Std Deviation 39.8 fL (36.4-46.3) 03/02/22 05:42 RDW Coeff of Herb 13.2 % (11.5-14.5) 03/02/22 05:42 Plt Count 188 K/uL (130-400) 03/02/22 05:42 MPV 9.1 fL (9.4-12.4) L 03/02/22 05:42 Immature Gran % (Auto) 1.1 % 03/01/22 18:00 Neut % (Auto) 62.2 % 03/01/22 18:00 Lymph % (Auto) 21.1 % 03/01/22 18:00 [place] % (Auto) 8.4 % 03/01/22 18:00 Eos % (Auto) 6.7 % 03/01/22 18:00 Baso % (Auto) 0.5 % 03/01/22 18:00 Neut # (Auto) 3.92 K/uL (1.4-6.5) 03/01/22 18:00 Lymph # (Auto) 1.33 K/uL (1.2-3.4) 03/01/22 18:00 [place] # (Auto) 0.53 K/uL (0.24-0.82) 03/01/22 18:00 Eos # (Auto) 0.42 K/uL (0-0.50) 03/01/22 18:00 Baso # (Auto) 0.03 K/uL (0-0.2) 03/01/22 18:00 Immature Gran # (Auto) 0.07 K/uL (0.00-0.02) H 03/01/22 18:00 PT 11.0 Seconds (9.0-12.0) 03/01/22 18:42 INR 1.0 (0.9-1.1) 03/01/22 18:42 APTT 28.2 Seconds (21.0-31.0) 03/01/22 18:42 PTT Ratio 1.0 03/01/22 18:42 Sodium 131 mmol/L (136-145) L 03/01/22 18:00 Potassium 4.3 mmol/L (3.5-5.1) 03/01/22 18:00 Chloride 96 mmol/L (98-107) L 03/01/22 18:00 Carbon Dioxide 29 mmol/L (21-32) 03/01/22 18:00 Anion Gap 6 (3-11) 03/01/22 18:00 BUN 17 mg/dl (6-23) 03/01/22 18:00 Creatinine 0.91 mg/dl (0.6-1.4) 03/01/22 18:00 Est Cr Clr Drug Dosing 88.4 ml/min 03/01/22 18:00 Est GFR ( Amer) 93.9 ml/min 03/01/22 18:00 Est GFR (Non-Af Amer) 81.0 ml/min 03/01/22 18:00 BUN/Creatinine Ratio 18.7 (10-20) 03/01/22 18:00 Glucose 108 mg/dl (70-99(Fasting)) H 03/01/22 18:00 POC Glucose 141 mg/dl (70-99) H 03/02/22 05:56 Calcium 9.2 mg/dl (8.5-10.1) 03/01/22 18:00 Total Bilirubin 0.8 mg/dl (0.2-1.0) 03/01/22 18:00 AST 24 U/L (13-39) 03/01/22 18:00 ALT 23 U/L (7-52) 03/01/22 18:00 Alkaline Phosphatase 68 U/L (34-104) 03/01/22 18:00 Troponin I High Sens 7.3 pg/ml (0-20) 03/01/22 18:00 Total Protein 7.6 gm/dl (6.0-8.3) 03/01/22 18:00 Albumin 3.9 gm/dl (3.4-5.0) 03/01/22 18:00 Globulin 3.7 gm/dl (2.5-4.0) 03/01/22 18:00 Albumin/Globulin Ratio 1.1 (0.9-2) 03/01/22 18:00 Lipase 14 U/L (11-82) 03/01/22 18:00 SARS-CoV-2, RNA, NAAT NEGATIVE (NEGATIVE) 03/01/22 17:10 Blood Type O Negative 03/01/22 21:50 Antibody Screen NEGATIVE 03/01/22 21:[address] 03/01/22 16:54 CT OF THE CERVICAL SPINE WITHOUT CONTRAST CLINICAL HISTORY: Fall. COMPARISON STUDY: No previous studies for comparison. TECHNIQUE: Helical axial images of the cervical spine were obtained without IV contrast. Sagittal and coronal reconstructions were viewed. Automated exposure control was utilized for the study. A dose lowering technique was utilized adhering to the principles of ALARA. FINDINGS: Alignment of the cervical spine is anatomic. Vertebral body heights are maintained. No acute cervical spine fracture or subluxation is present. There is no prevertebral edema. Facet joints are intact. Moderate multilevel disc space narrowing, osteophytosis and facet arthrosis is present. Minimal secretions within the sphenoid sinuses. IMPRESSION: No acute cervical spine fracture or subluxation. ACT 112: Negative or not required by law. Electronically signed by: Kashmir Presley M.D. 03/01/2022 6:[address] 03/01/22 16:54 CT OF THE HEAD WITHOUT CONTRAST CLINICAL HISTORY: Fall. COMPARISON STUDY: No previous studies for comparison. CT DOSE: 1287.95 mGycm TECHNIQUE: Helical axial images of the head were obtained without IV contrast. Automated exposure control was utilized for the study. A dose lowering technique was utilized adhering to the principles of ALARA. FINDINGS: No acute intracranial hemorrhage, midline shift or mass effect is present. The ventricular system is unremarkable. The basal cisterns are patent. No extra-axial collections are present. There are no findings to suggest acute dural sinus thrombosis or acute territorial infarct. There is no acute calvarial fracture. Moderate ethmoid sinus mucosal thickening is present. IMPRESSION: 1. No acute intracranial findings. 2. No acute calvarial fracture. 3. Ethmoid sinus mucosal thickening. ACT 112: Negative or not required by law. Electronically signed by: Kashmir Presley M.D. 03/01/2022 5:56 PM Hip/Pelvis X-Ray 03/01/22 16:54 XR hip RT 2V w pelvis CLINICAL HISTORY: fall TECHNIQUE: 2 views of the right hip and single frontal view of the pelvis were obtained. Comparison: None available at the time of this dictation. FINDINGS: There is a fracture of the femoral neck with overriding of fragments. Mild degenerative changes are seen in the joints. Soft tissue swelling is seen. IMPRESSION: Right femoral neck fracture with associated soft tissue swelling. ACT 112: Negative or not required by law. Electronically signed by: Kalen Payne M.D. 03/01/2022 5:44 PM Chest X-Ray 03/01/22 16:55 XR chest 1V portable CLINICAL HISTORY: Chest pain, nonspecific TECHNIQUE: Single frontal radiograph of the chest was obtained. Comparison: None available at the time of this dictation. FINDINGS: No lines and tubes are seen. The cardiomediastinal silhouette is normal. Lungs are underinflated but clear. No evidence of pleural effusion or pneumothorax. IMPRESSION: Lungs are underinflated without evidence of acute abnormality. ACT 112: Negative or not required by law. Electronically signed by: Kalen Payne M.D. 03/01/2022 5:43 PM Ankle X-Ray 03/01/22 19:54 XR ankle RT 2V CLINICAL HISTORY: fall, right ankle pain COMPARISON: None FINDINGS: Alignment of the right ankle is anatomic. No acute fracture. Talar dome is intact. Vascular calcification is incidentally noted within the calf vessels. IMPRESSION: No fracture or dislocation within the right ankle. ACT 112: Negative or not required by law. Electronically signed by: Kashmir Presley M.D. 03/01/2022 8:20 PM
[2022-03-02 06:51] LABS: BUN Creatinine Ratio 20.3 (10-20); Calcium 9.1 mg/dl (8.5-10.1); Creatinine Clr Calc Pharmacy 101.9 ml/min; Est GFR (African American) 100.4 ml/min; Est GFR (Non-African American) 86.6 ml/min; Potassium 4.2 mmol/L (3.5-5.1)
[2022-03-02] MEDS: lisinopril 10 MG TAB PO SCH (07:48)
[2022-03-02] MEDS: CITALOPRAM 20 MG TAB PO SCH (07:48)
[2022-03-02] MEDS: hydroCHLOROthiazide 25 MG TAB PO SCH (07:48)
[2022-03-02] MEDS: ATENOLOL 50 MG TABLET PO SCH ×2 (07:49→21:13)
[2022-03-02] MEDS: FAMOTIDINE 40 MG TABLET PO SCH (07:49)
[2022-03-02] MEDS ORDERED: TRANEXAMIC ACID / 0.7% NACL 1,000 MG/100 ML BAG IV ONE ×2 (07:55→08:15)
--- NOTE | 2022-03-02 08:01 | Anesthesiology Consultation ---
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 History Surgery Operation Date: 03/02/22 08:10 Proposed Procedures p Right Bipolar Hip Prosthesis - Say Charley Salmeron MD Height/Weight Height: 6 ft 2 in Weight: 106.6 kg Allergies Allergy/AdvReac Type Severity Reaction Status Date / Time Penicillins Allergy Unknown unsure Verified 03/01/22 19:10 Medications Home Medications Medication Instructions Recorded Confirmed Last Taken atenolol 50 mg tablet (Tenormin) 50 mg PO BID #0 tabs 04/08/15 03/01/22 07/19/19 simvastatin 20 mg tablet (Zocor) 20 mg PO PM #0 tabs 04/08/15 03/01/22 07/18/19 metformin 500 mg tablet 1,000 mg PO QAM 07/19/19 03/01/22 07/18/19 aspirin 81 mg tablet,delayed 81 mg PO DAILY 03/01/22 03/01/22 Unknown release carbidopa 25 mg-levodopa 250 mg 1 tab PO HS 03/01/22 03/01/22 Unknown tablet citalopram 20 mg tablet 20 mg PO DAILY 03/01/22 03/01/22 Unknown famotidine 40 mg tablet 40 mg PO DAILY 03/01/22 03/01/22 Unknown hydrochlorothiazide 25 mg tablet 25 mg PO DAILY 03/01/22 03/01/22 Unknown lisinopril 10 mg tablet 10 mg PO DAILY 03/01/22 03/01/22 Unknown metformin 500 mg tablet 500 mg PO .MARCEL MEAL 03/01/22 03/01/22 Unknown Active Medications Generic Name Dose Route Start Last Admin Trade Name Hardeep PRN Reason Stop Dose Admin Acetaminophen 1,000 mg 03/01/22 21:22 03/02/22 06:11 Acetaminophen 500 Mg Tab PO 03/31/22 21:21 1,000 mg Q8H ZULEYMA Administration Atenolol 50 mg 03/01/22 21:22 03/02/22 07:49 Atenolol 50 Mg Tablet PO 03/31/22 21:21 50 mg BID ZULEYMA Administration Carbidopa/Levodopa 1 tab 03/01/22 21:22 03/01/22 21:58 Carbidopa/Levodopa 25-250 1 Ea Tab PO 03/31/22 21:21 1 tab HS ZULEYMA Administration Citalopram Hydrobromide 20 mg 03/02/22 09:00 03/02/22 07:48 Citalopram 20 Mg Tab PO 04/01/22 08:59 20 mg DAILY ZULEYMA Administration Famotidine 40 mg 03/02/22 09:00 03/02/22 07:49 Famotidine 40 Mg Tablet PO 04/01/22 08:59 40 mg DAILY ZULEYMA Administration Hydrochlorothiazide 25 mg 03/02/22 09:00 03/02/22 07:48 Hydrochlorothiazide 25 Mg Tab PO 04/01/22 08:59 25 mg DAILY ZULEYMA Administration Insulin Aspart 0 units 03/01/22 21:22 03/01/22 21:58 Insulin Aspart Per Unit SC 03/31/22 21:21 Not Given ACHS ZULEYMA Lisinopril 10 mg 03/02/22 09:00 03/02/22 07:48 Lisinopril 10 Mg Tab PO 04/01/22 08:59 10 mg DAILY ZULEYMA Administration Morphine Sulfate 4 mg 03/01/22 21:22 03/02/22 07:45 Morphine Sulfate 4 Mg/Ml 1 Ml Carp\Vial IV 03/15/22 21:21 4 mg Q4H PRN Administration Pain (7,8,9,10) Senna/Docusate Sodium 2 tab 03/01/22 21:22 03/01/22 21:57 Docusate Sodium/Senna 50/8.6mg Tab PO 03/31/22 21:21 2 tab HS ZULEYMA Administration Simvastatin 20 mg 03/01/22 21:22 03/01/22 21:58 Simvastatin 20 Mg Tab PO 03/31/22 21:21 20 mg PM ZULEYMA Administration Past Medical History Medical History Depression DM type 2 (diabetes mellitus, type 2) Dyslipidemia GERD (gastroesophageal reflux disease) Hypertension RLS (restless legs syndrome) Past Family History Family History Father Hypertension Past Surgical History Surgical History No pertinent past surgical history Social History Smoking Status: Former smoker Hx Alcohol Use: No Hx Substance Use: No Physical Exam Vital Signs Last Vital Signs Temp 98.6 F 03/02/22 00:00 Pulse 71 03/02/22 00:00 Resp 20 03/02/22 00:00 BP 166/83 H 03/02/22 00:00 Pulse Ox 95 03/02/22 00:00 O2 Del Method 03/02/22 00:00 O2 Flow Rate 2 03/01/22 21:22 Testing Laboratory Results 03/02/22 05:42 03/02/22 05:42 PT 11.0 Seconds (9.0-12.0) 03/01/22 18:42 INR 1.0 (0.9-1.1) 03/01/22 18:42 APTT 28.2 Seconds (21.0-31.0) 03/01/22 18:42 Blood Type O Negative 03/01/22 21:50 Antibody Screen NEGATIVE 03/01/22 21:50 03/02/22 03/01/22 05:56 21:37 POC Glucose 141 H 140 H Electrocardiogram Date: 03/01/22 Poor data quality, interpretation may be adversely affected Sinus rhythm with 1st degree A-V block, rate 81 bpm Otherwise normal ECG When compared with ECG of 08-APR-2015 23:09, QRS axis Shifted left Chest X-Ray Date: 03/01/22 IMPRESSION: Lungs are underinflated without evidence of acute abnormality.
[2022-03-02 08:35] LABS: Estimated Average Glucose 154 mg/dl
[2022-03-02] MEDS ORDERED: Nursing to Pharmacy Communication SCH ×2 (08:45→18:00)
[2022-03-02] MEDS: oxyCODONE HCL IR 5 MG TAB (IMMEDIATE RELEASE) PO PRN (09:06)
--- NOTE | 2022-03-02 10:28 | Hospitalist Progress Note ---
Date of Service March 02, 2022 Assessment & Plan (1) Fracture of femoral neck, right: Plan: Patient presenting from home for evaluation after a mechanical fall and Right hip pain X-ray shows right femoral neck fracture Orthopedics consulted Pt now s/p surgical repair (03/02) Tolerated procedure well Postop management as per Ortho (2) Hypertension: Plan: Continue home meds including atenolol, HCTZ, lisinopril Monitor BP (3) DM type 2 (diabetes mellitus, type 2): Plan: Hgb A1c 6.9 09/2021 Hold oral agents and utilize NovoLog per protocol while hospitalized (4) Dyslipidemia: Plan: Continue statin (5) RLS (restless legs syndrome): Plan: Continue carbidopa-levodopa HS (6) GERD (gastroesophageal reflux disease): Plan: Continue H2 jo-ann (7) Depression: Plan: Continue citalopram DVT prophylaxis SCDs Postop DVT prophylaxis as per Ortho Admission and Anticipated Discharge Date Admission Date: March 01, 2022 Subjective Patient seen in follow-up of right femoral fracture, status post surgical repair Patient sitting up in bed, in no acute distress Tolerated procedure well. Family is currently present at the bedside. Patient is alert oriented answering questions appropriately. Denies any fevers chills, nausea vomiting, shortness of breath or chest pain. Reports some postsurgical pain in his leg. Review of Systems Review of Systems: All systems reviewed & are unremarkable except as noted in Subjective Physical Exam Physical Exam: Constitutional:L WD/WN, vitals as a luke Eyes: PERRL, EOMI, conju nctivae normal, an icteric sclerae ENMT: external ear and n ose normal, oropha rynx normal Respiratory: normal respiratory effort, lungs meliton ar to auscultation Cardiovascular:L Rate/Rhythm: regul ar rate and regula r rhythm Vessels: normal peripheral pulses Extremiti es: no edema Gastrointestinal ( Abdomen): normal bowel sound s, soft, nontender Musculoskeletal: right hip- surgica l dressings applie d Skin: no rashes, warm an d dry Neurologic: PERRL, EOMI, no fa ce palsy, no dysar thria Psychiatric: A+Ox3, euthymic af fect Results & Data Results & Data ([facility]) Vital Signs (Past 12 Hours) Vital Signs Temp Pulse Pulse Resp BP Pulse Ox O2 Del Method 03/02/22 08:00 37.3 C 57 L 18 131/66 92 Nasal Cannula 03/02/22 00:00 37 C 71 20 166/83 H 95 Room Air Laboratory Results 03/02/22 03/02/22 03/02/22 Range/Units 05:56 05:42 05:42 WBC (4.8-10.8) K/ul RBC (4.63-6.08) M/uL Hgb (14.0-18.0) g/dl Hct (40.1-51.0) % MCV (80.0-100.0) fL MCH (25.0-34.0) pg MCHC (32.0-36.0) g/dL RDW Std Deviation (36.4-46.3) fL RDW Coeff of Herb (11.5-14.5) % Plt Count (130-400) K/uL MPV (9.4-12.4) fL Immature Gran % (Auto) % Neut % (Auto) % Lymph % (Auto) % [place] % (Auto) % Eos % (Auto) % Baso % (Auto) % Neut # (Auto) (1.4-6.5) K/uL Lymph # (Auto) (1.2-3.4) K/uL [place] # (Auto) (0.24-0.82) K/uL Eos # (Auto) (0-0.50) K/uL Baso # (Auto) (0-0.2) K/uL Immature Gran # (Auto) (0.00-0.02) K/uL PT INR APTT PTT Ratio Sodium (136-145) mmol/L Potassium (3.5-5.1) mmol/L Chloride (98-107) mmol/L Carbon Dioxide (21-32) mmol/L Anion Gap (3-11) BUN (6-23) mg/dl Creatinine (0.6-1.4) mg/dl Est Cr Clr Drug Dosing ml/min Est GFR ( Amer) ml/min Est GFR (Non-Af Amer) ml/min BUN/Creatinine Ratio (10-20) Glucose (70-99(Fasting)) mg/dl POC Glucose 141 H (70-99) mg/dl Estimat Average Glucose 154 mg/dl Hemoglobin A1c 7.0 H (4.5-5.6) % Calcium (8.5-10.1) mg/dl Total Bilirubin (0.2-1.0) mg/dl AST (13-39) U/L ALT (7-52) U/L Alkaline Phosphatase (34-104) U/L Troponin I High Sens (0-20) pg/ml Total Protein (6.0-8.3) gm/dl Albumin (3.4-5.0) gm/dl Globulin (2.5-4.0) gm/dl Albumin/Globulin Ratio (0.9-2) Lipase (11-82) U/L 25-OH Vitamin D Total 22.5 L (30-100) ng/ml Nasal Screen MRSA (PCR) (Negative) SARS-CoV-2, RNA, NAAT (NEGATIVE) Blood Type Antibody Screen 03/02/22 03/02/22 03/02/22 Range/Units 05:42 05:42 04:00 WBC 7.41 (4.8-10.8) K/ul RBC 3.94 L (4.63-6.08) M/uL Hgb 10.9 L (14.0-18.0) g/dl Hct 33.1 L (40.1-51.0) % MCV 84.0 (80.0-100.0) fL MCH 27.7 (25.0-34.0) pg MCHC 32.9 (32.0-36.0) g/dL RDW Std Deviation 39.8 (36.4-46.3) fL RDW Coeff of Herb 13.2 (11.5-14.5) % Plt Count 188 (130-400) K/uL MPV 9.1 L (9.4-12.4) fL Immature Gran % (Auto) % Neut % (Auto) % Lymph % (Auto) % [place] % (Auto) % Eos % (Auto) % Baso % (Auto) % Neut # (Auto) (1.4-6.5) K/uL Lymph # (Auto) (1.2-3.4) K/uL [place] # (Auto) (0.24-0.82) K/uL Eos # (Auto) (0-0.50) K/uL Baso # (Auto) (0-0.2) K/uL Immature Gran # (Auto) (0.00-0.02) K/uL PT INR APTT PTT Ratio Sodium 131 L (136-145) mmol/L Potassium 4.2 (3.5-5.1) mmol/L Chloride 94 L (98-107) mmol/L Carbon Dioxide 32 (21-32) mmol/L Anion Gap 5 (3-11) BUN 16 (6-23) mg/dl Creatinine 0.79 (0.6-1.4) mg/dl Est Cr Clr Drug Dosing 101.9 ml/min Est GFR ( Amer) 100.4 ml/min Est GFR (Non-Af Amer) 86.6 ml/min BUN/Creatinine Ratio 20.3 H (10-20) Glucose 129 H (70-99(Fasting)) mg/dl POC Glucose (70-99) mg/dl Estimat Average Glucose mg/dl Hemoglobin A1c (4.5-5.6) % Calcium 9.1 (8.5-10.1) mg/dl Total Bilirubin (0.2-1.0) mg/dl AST (13-39) U/L ALT (7-52) U/L Alkaline Phosphatase (34-104) U/L Troponin I High Sens (0-20) pg/ml Total Protein (6.0-8.3) gm/dl Albumin (3.4-5.0) gm/dl Globulin (2.5-4.0) gm/dl Albumin/Globulin Ratio (0.9-2) Lipase (11-82) U/L 25-OH Vitamin D Total (30-100) ng/ml Nasal Screen MRSA (PCR) Negative (Negative) SARS-CoV-2, RNA, NAAT (NEGATIVE) Blood Type Antibody Screen 03/01/22 03/01/22 03/01/22 Range/Units 21:50 21:37 18:42 WBC (4.8-10.8) K/ul RBC (4.63-6.08) M/uL Hgb (14.0-18.0) g/dl Hct (40.1-51.0) % MCV (80.0-100.0) fL MCH (25.0-34.0) pg MCHC (32.0-36.0) g/dL RDW Std Deviation (36.4-46.3) fL RDW Coeff of Herb (11.5-14.5) % Plt Count (130-400) K/uL MPV (9.4-12.4) fL Immature Gran % (Auto) % Neut % (Auto) % Lymph % (Auto) % [place] % (Auto) % Eos % (Auto) % Baso % (Auto) % Neut # (Auto) (1.4-6.5) K/uL Lymph # (Auto) (1.2-3.4) K/uL [place] # (Auto) (0.24-0.82) K/uL Eos # (Auto) (0-0.50) K/uL Baso # (Auto) (0-0.2) K/uL Immature Gran # (Auto) (0.00-0.02) K/uL PT 11.0 INR 1.0 APTT 28.2 PTT Ratio 1.0 Sodium (136-145) mmol/L Potassium (3.5-5.1) mmol/L Chloride (98-107) mmol/L Carbon Dioxide (21-32) mmol/L Anion Gap (3-11) BUN (6-23) mg/dl Creatinine (0.6-1.4) mg/dl Est Cr Clr Drug Dosing ml/min Est GFR ( Amer) ml/min Est GFR (Non-Af Amer) ml/min BUN/Creatinine Ratio (10-20) Glucose (70-99(Fasting)) mg/dl POC Glucose 140 H (70-99) mg/dl Estimat Average Glucose mg/dl Hemoglobin A1c (4.5-5.6) % Calcium (8.5-10.1) mg/dl Total Bilirubin (0.2-1.0) mg/dl AST (13-39) U/L ALT (7-52) U/L Alkaline Phosphatase (34-104) U/L Troponin I High Sens (0-20) pg/ml Total Protein (6.0-8.3) gm/dl Albumin (3.4-5.0) gm/dl Globulin (2.5-4.0) gm/dl Albumin/Globulin Ratio (0.9-2) Lipase (11-82) U/L 25-OH Vitamin D Total (30-100) ng/ml Nasal Screen MRSA (PCR) (Negative) SARS-CoV-2, RNA, NAAT (NEGATIVE) Blood Type O Negative Antibody Screen NEGATIVE 03/01/22 03/01/22 03/01/22 Range/Units 18:00 18:00 18:00 WBC 6.30 (4.8-10.8) K/ul RBC 4.05 L (4.63-6.08) M/uL Hgb 11.4 L (14.0-18.0) g/dl Hct 34.1 L (40.1-51.0) % MCV 84.2 (80.0-100.0) fL MCH 28.1 (25.0-34.0) pg MCHC 33.4 (32.0-36.0) g/dL RDW Std Deviation 40.1 (36.4-46.3) fL RDW Coeff of Herb 13.0 (11.5-14.5) % Plt Count 224 (130-400) K/uL MPV 9.3 L (9.4-12.4) fL Immature Gran % (Auto) 1.1 % Neut % (Auto) 62.2 % Lymph % (Auto) 21.1 % [place] % (Auto) 8.4 % Eos % (Auto) 6.7 % Baso % (Auto) 0.5 % Neut # (Auto) 3.92 (1.4-6.5) K/uL Lymph # (Auto) 1.33 (1.2-3.4) K/uL [place] # (Auto) 0.53 (0.24-0.82) K/uL Eos # (Auto) 0.42 (0-0.50) K/uL Baso # (Auto) 0.03 (0-0.2) K/uL Immature Gran # (Auto) 0.07 H (0.00-0.02) K/uL PT Cancelled INR Cancelled APTT Cancelled PTT Ratio Cancelled Sodium 131 L (136-145) mmol/L Potassium 4.3 (3.5-5.1) mmol/L Chloride 96 L (98-107) mmol/L Carbon Dioxide 29 (21-32) mmol/L Anion Gap 6 (3-11) BUN 17 (6-23) mg/dl Creatinine 0.91 (0.6-1.4) mg/dl Est Cr Clr Drug Dosing 88.4 ml/min Est GFR ( Amer) 93.9 ml/min Est GFR (Non-Af Amer) 81.0 ml/min BUN/Creatinine Ratio 18.7 (10-20) Glucose 108 H (70-99(Fasting)) mg/dl POC Glucose (70-99) mg/dl Estimat Average Glucose mg/dl Hemoglobin A1c (4.5-5.6) % Calcium 9.2 (8.5-10.1) mg/dl Total Bilirubin 0.8 (0.2-1.0) mg/dl AST 24 (13-39) U/L ALT 23 (7-52) U/L Alkaline Phosphatase 68 (34-104) U/L Troponin I High Sens (0-20) pg/ml Total Protein 7.6 (6.0-8.3) gm/dl Albumin 3.9 (3.4-5.0) gm/dl Globulin 3.7 (2.5-4.0) gm/dl Albumin/Globulin Ratio 1.1 (0.9-2) Lipase 14 (11-82) U/L 25-OH Vitamin D Total (30-100) ng/ml Nasal Screen MRSA (PCR) (Negative) SARS-CoV-2, RNA, NAAT (NEGATIVE) Blood Type Antibody Screen 03/01/22 03/01/22 Range/Units 18:00 17:10 WBC (4.8-10.8) K/ul RBC (4.63-6.08) M/uL Hgb (14.0-18.0) g/dl Hct (40.1-51.0) % MCV (80.0-100.0) fL MCH (25.0-34.0) pg MCHC (32.0-36.0) g/dL RDW Std Deviation (36.4-46.3) fL RDW Coeff of Herb (11.5-14.5) % Plt Count (130-400) K/uL MPV (9.4-12.4) fL Immature Gran % (Auto) % Neut % (Auto) % Lymph % (Auto) % [place] % (Auto) % Eos % (Auto) % Baso % (Auto) % Neut # (Auto) (1.4-6.5) K/uL Lymph # (Auto) (1.2-3.4) K/uL [place] # (Auto) (0.24-0.82) K/uL Eos # (Auto) (0-0.50) K/uL Baso # (Auto) (0-0.2) K/uL Immature Gran # (Auto) (0.00-0.02) K/uL PT INR APTT PTT Ratio Sodium (136-145) mmol/L Potassium (3.5-5.1) mmol/L Chloride (98-107) mmol/L Carbon Dioxide (21-32) mmol/L Anion Gap (3-11) BUN (6-23) mg/dl Creatinine (0.6-1.4) mg/dl Est Cr Clr Drug Dosing ml/min Est GFR ( Amer) ml/min Est GFR (Non-Af Amer) ml/min BUN/Creatinine Ratio (10-20) Glucose (70-99(Fasting)) mg/dl POC Glucose (70-99) mg/dl Estimat Average Glucose mg/dl Hemoglobin A1c (4.5-5.6) % Calcium (8.5-10.1) mg/dl Total Bilirubin (0.2-1.0) mg/dl AST (13-39) U/L ALT (7-52) U/L Alkaline Phosphatase (34-104) U/L Troponin I High Sens 7.3 (0-20) pg/ml Total Protein (6.0-8.3) gm/dl Albumin (3.4-5.0) gm/dl Globulin (2.5-4.0) gm/dl Albumin/Globulin Ratio (0.9-2) Lipase (11-82) U/L 25-OH Vitamin D Total (30-100) ng/ml Nasal Screen MRSA (PCR) (Negative) SARS-CoV-2, RNA, NAAT NEGATIVE (NEGATIVE) Blood Type Antibody Screen Medications Administered Current Inpatient Medications Acetaminophen (Acetaminophen 500 Mg Tab) 1,000 mg PO Q8H ZULEYMA Stop: 03/31/22 21:21 Last Admin: 03/02/22 06:11 Dose: 1,000 mg Atenolol (Atenolol 50 Mg Tablet) 50 mg PO BID ZULEYMA Stop: 03/31/22 21:21 Last Admin: 03/02/22 07:49 Dose: 50 mg Bisacodyl (Bisacodyl 10 Mg Supp) 10 mg [place] DAILY PRN PRN Reason: Constipation Stop: 03/31/22 21:21 Carbidopa/Levodopa (Carbidopa/Levodopa 25-250 1 Ea Tab) 1 tab PO HS [facility] Stop: 03/31/22 21:21 Last Admin: 03/01/22 21:58 Dose: 1 tab Citalopram Hydrobromide (Citalopram 20 Mg Tab) 20 mg PO DAILY ZULEYMA Stop: 04/01/22 08:59 Last Admin: 03/02/22 07:48 Dose: 20 mg Dextrose (Dextrose 50% 50 Ml Syringe) 25 - 50 ml IV UD PRN; Protocol PRN Reason: Hypoglycemia Protocol Stop: 03/31/22 21:21 Famotidine (Famotidine 40 Mg Tablet) 40 mg PO DAILY [facility] Stop: 04/01/22 08:59 Last Admin: 03/02/22 07:49 Dose: 40 mg Glucagon (Glucagon For Inj 1 Mg Vial) 1 mg SQ UD PRN; Protocol PRN Reason: Hypoglycemia Protocol Stop: 03/31/22 21:21 Glucose (Glucose 40% Gel 15 Gm Tube) 15 - 30 gm PO UD PRN; Protocol PRN Reason: Hypoglycemia Protocol Stop: 03/31/22 21:21 Glucose (Glucose 10 Tab/Tube) 4 - 8 tab PO UD PRN; Protocol PRN Reason: Hypoglycemia Treatment Stop: 03/31/22 21:21 Hydrochlorothiazide (Hydrochlorothiazide 25 Mg Tab) 25 mg PO DAILY [facility] Stop: 04/01/22 08:59 Last Admin: 03/02/22 07:48 Dose: 25 mg Cefazolin Sodium (Ancef 2000mg) 2,000 mg in 15 mls @ 3.75 mls/min IV PREOP ZULEYMA; Protocol Stop: 03/03/22 05:59 Insulin Aspart (Insulin Aspart Per Unit) 0 units SC Q6 ZULEYMA Stop: 04/01/22 11:59 Lisinopril (Lisinopril 10 Mg Tab) 10 mg PO DAILY [facility] Stop: 04/01/22 08:59 Last Admin: 03/02/22 07:48 Dose: 10 mg Magnesium Hydroxide (Magnesium Hydroxide Susp 30 Ml Udc) 30 ml PO DAILY PRN PRN Reason: Constipation Stop: 03/31/22 21:21 Miscellaneous (Carbohydrates For Hypoglycemia ) 15 - 30 gm PO UD PRN PRN Reason: Hypoglycemia Protocol Stop: 03/31/22 21:21 Morphine Sulfate (Morphine Sulfate 4 Mg/Ml 1 Ml Carp\Vial) 4 mg IV Q4H PRN PRN Reason: Pain (7,8,9,10) Stop: 03/15/22 21:21 Last Admin: 03/02/22 07:45 Dose: 4 mg Naloxone HCl (Naloxone Hcl 0.4 Mg/1 Ml Vial/Carp) 0.1 mg IV UD PRN PRN Reason: Opiate Overdose Stop: 03/31/22 21:21 Ondansetron HCl (Ondansetron Inj 2 Mg/Ml 2 Ml Vial) 4 mg IV Q6H PRN PRN Reason: Nausea And Vomiting Stop: 03/31/22 21:21 Oxycodone HCl (Oxycodone Hcl Ir 5 Mg Tab (Immediate Release)) 5 mg PO Q6H PRN PRN Reason: MODERATE Pain (4,5,6) & Pre PT Stop: 03/15/22 21:21 Last Admin: 03/02/22 09:06 Dose: 5 mg Senna/Docusate Sodium (Docusate Sodium/Senna 50/8.6mg Tab) 2 tab PO HS ZULEYMA Stop: 03/31/22 21:21 Last Admin: 03/01/22 21:57 Dose: 2 tab Simvastatin (Simvastatin 20 Mg Tab) 20 mg PO PM ZULEYMA Stop: 03/31/22 21:21 Last Admin: 03/01/22 21:58 Dose: 20 mg
[2022-03-02] MEDS ORDERED: MIDAZOLAM HCL 1 MG/ML 2ML VIAL ONE ×2 (12:22→12:25)
[2022-03-02] MEDS ORDERED: LIDOCAINE 2% MPF LOCAL 5 ML VIAL INFIL ONE (12:22)
[2022-03-02] MEDS ORDERED: PROPOFOL IV EMULSION 10 MG/ML 20 ML VIAL IV ONE (12:22)
[2022-03-02] MEDS ORDERED: fentaNYL citrate 100 MCG/2 ML VIAL ONE ×2 (12:22→15:26)
[2022-03-02] MEDS ORDERED: BUPIVACAINE 0.5 % 5 MG/1 ML PF 10ML VIAL ONE (12:31)
[2022-03-02] MEDS ORDERED: LIDOCAINE 1%/EPINEPHRINE 1:100,000 50 ML VIAL ONE (12:40)
[2022-03-02] MEDS ORDERED: BUPIVACAINE 0.5 % 5 MG/1 ML MPF 30ML VIAL ONE (12:40)
[2022-03-02] MEDS ORDERED: ATROPINE SULFATE 0.1 MG/ML 10ML SYR IV PRN (13:02)
[2022-03-02] MEDS ORDERED: ONDANSETRON INJ 2 MG/ML 2 ML VIAL IV PRN (13:02)
[2022-03-02] MEDS ORDERED: KETOROLAC 30 MG/ML VIAL IV PRN (13:02)
[2022-03-02] MEDS ORDERED: HYDROmorphone INJ 1 MG/ML SYRINGE IV PRN (13:02)
[2022-03-02] MEDS ORDERED: ePHEDrine sulfate 50 MG/ML AMP IV PRN (13:02)
[2022-03-02] MEDS ORDERED: ePHEDrine sulfate 50 MG/ML SYR ONE (15:04)
[2022-03-02] MEDS ORDERED: PHENYLEPHRINE HCL 10 MG/ML VIAL ONE (15:04)
--- NOTE | 2022-03-02 16:00 | Operative Report ---
Post Operative Report Pre & Post Diagnosis Operation Date: 03/02/22 08:10 Pre-Op Diagnosis: Right femoral neck fracture Post-Op Diagnosis: Right femoral neck fracture I identified the patient and participated in the time-out.: Yes Procedure Operation Date: 03/02/22 08:10 Actual Procedures p Right Bipolar Hip Prosthesis Cemented(Right) - Say Salmeron MD Surgeon Say Salmeron M.D. [employer] Elizabeth Cabezas PA-C Estimated Blood Loss 50 Findings Consistent with Post-Op Diagnosis Specimens Right femoral neck fracture Anesthesia Type Spinal MAC Description of Procedure Patient was taken to the operating room, placed under spinal anesthesia. Time out performed, prepped and draped in routine sterile fashion. I was present during the entire case, except for the last 20 minutes of closure. Please see Dr. Salmeron's operative report for further detail. Patient was awakened and transferred to recovery room in stable condition. I attest to the content of the Intraoperative Record and any orders documented therein. Any exceptions are noted below.
--- NOTE | 2022-03-02 16:22 | Post Operative Brief Note ---
Immediate Post Op Note v1 Date of Surgery March 02, 2022 Pre & Post Diagnosis Operation Date: 03/02/22 08:10 Pre-Op Diagnosis: Right femoral neck fracture Post-Op Diagnosis: Right femoral neck fracture I identified the patient and participated in the time-out.: Yes Procedure Operation Date: 03/02/22 08:10 Actual Procedures p Right Bipolar Hip Prosthesis Cemented(Right) - Say Salmeron MD Surgeon Say Salmeron MD [employer] Elizabeth Cabezas PA-C & Sal Chino PA-C Estimated Blood Loss 100 Findings Consistent with Post-Op Diagnosis Fluids 1100 cc Specimens Right hip contents Anesthesia Type Spinal MAC Complications none
--- NOTE | 2022-03-02 16:23 | Operative Report ---
Post Operative Report Pre & Post Diagnosis Operation Date: 03/02/22 08:10 Pre-Op Diagnosis: Right femoral neck fracture Post-Op Diagnosis: Right femoral neck fracture I identified the patient and participated in the time-out.: Yes Procedure Operation Date: 03/02/22 08:10 Actual Procedures p Right Bipolar Hip Prosthesis Cemented(Right) - Say Salmeron MD Surgeon Say Salmeron MD Credit Card Interviewer Elizabeth Cabezas PA-C & Sal Chino PA-C Estimated Blood Loss 100 Findings See Below Displaced right femoral neck, comminuted fracture, pierced the capsule. 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 After orthopedic consult discussing the patients treatment options of conservative versus surgical intervention, she agreed for a planned hemiarthroplasty. Since the patient was ambulatory prior to the injury and to avoid the risks of bed sores, pulmonary complications, and to give the patient the best chance for ambulation, I recommended surgery. The patient understands the risks of surgery, which include but are not limited to: bleeding, infection, re- operation, damage to nerves and arteries, continued pain, failure of the hardware, dislocation, DVT, and . In addition the patient is aware of the 20-30% morbidity associated with hip fracture for up to 1 year following a hip fracture. The patient understands all of these instructions and explanations, all of their questions have been satisfactorily addressed. The patient has elected to proceed with surgery and the informed consent was signed. Description of Procedure Sal Cabezas PA-C is assisting with positioning, retraction, dislocating & relocating the hip, and closure of the fascia due to fellow not available. She was relieved by Sal Chino PA-C who aided in completing the closure, placement of dressing and Abd pillow again as no fellow was available. IMPLANTS: 1) LD/Fx, Size 12 Cemented (Meredith/Biomet). 2) Femoral Head 28mm Diameter, + 3.5 mm Neck Length. 3) 53 mm Multipolar Bipolar Cup. 4) 28 mm ID Liner, Multipolar Bipolar Cup. 5) Distal Centralizer 11 mm. 6) Palacos cement x 2 7) Dull-Miles Cable x 2 PROCEDURE: The patient was taken to the Operating Room and placed in the lateral position with Stulberg following spinal anesthesia administration. A multidisciplinary time-out was performed identifying my initials on the left lower limb as the correct and operative limb. Prior to the incision being made, 2 grams of intravenous Ancef were given. The right lower extremity was prepped in the standard fashion. The trochanter was marked as was the planned incision 1/3 proximal and 2/3 distal to the tip of the greater trochanter. The incision was injected with a 50:50 mixture of 1% Lidocaine epi and 0.5% Bupivacaine plain for a total of 20cc. A standard posterior approach was made. The planned incision was carried down through the Tensor Fascia Nancy, which was then split in-line with its fibers. The Gluteus Nick was bluntly dissected. The Piriformis and short external rotators were dissected off the capsule and femur and tagged for later repair. The fracture was easily identified as it had impaled the posterior capsule. The capsule was incised and freed off the fracture fragments. The Neck cut was made to allow removal of the femoral head and comminuted fragments. The femoral canal was prepared with Box osteotome, followed by a canal finder. The femur was sequentially broached in the standard fashion, and trial heads were placed. Fluoroscopy was brought in to ensure adequate proper alignment, fill of the canal, head size, and leg length. There was also concern for possible fracture line below the subtroch. Dull-Miles cables were placed proximal and distal to the area of concern using curved suture passers in the standard fashion. It was felt a size up would fill the distal canal better and a size 13 was placed and trailed. Fluoroscopy showed better improved canal fill and good position along with the cables. The cables were tightened and crimped in the standard fashion. The trial components were removed and the wound and femoral canal were copiously irrigated and dried. The femur was cemented using 3 rd generation technique followed by placement of the components in the standard fashion and the hip reduced. There was excellent stability with no sense of dislocation with 20 degrees adduction, flexion 90 degrees, and internal rotation to 45 degrees. The wounds were copiously irrigated. The External rotators and capsule were closed over bone bridges with #2 FiberWire. The Tensor Fascia Nancy was closed with #1 Vicryl and 0 Stratafix. The subcutaneous fat had a few stay sutures placed using 2-0 Vicryl. The subcutaneous tissue was closed with 3-0 Vicryl. The skin was closed with Zipline and shield. The incisions were covered with 4 x 4's, [ABD, and foam tape]. The patient was transferred to her hospital bed and taken to the PACU in stable condition. The sponge and needle counts were correct. Post-op Instructions: The patient was admitted to back to the Med/Surg floor. Final x-rays will be obtained in the PACU which showed the well cemented components with 2 Dull-Miles cable and no evidence of fracture. The patient will be WBAT with a walker. The patient will be seen by PT/OT. Total hip precautions will be followed. The patient's labs will be checked in the am. DVT prophylaxis will be with TEDs, mechanical devices and will ASA in the AM. I attest to the content of the Intraoperative Record and any orders documented therein. Any exceptions are noted below.
--- NOTE | 2022-03-02 16:26 | XRay Report ---
SINGLE VIEW RIGHT HIP CLINICAL HISTORY: Right hip arthroplasty. FINDINGS: 2 intraoperative radiographs of the right hip are compared to study dated 03/01/2022. The sk eletal structures are osteopenic. A right hip arthroplasty is in near-anatomic alignment. No acute fr acture is seen on the provided images. 2 cerclage wires are present around the arthroplasty stem on t he second image. IMPRESSION: Intraoperative images from a right hip arthroplasty placement as above. Electronically signed by: Renny Tuttle M.D. 03/02/2022 4:25 PM
--- NOTE | 2022-03-02 16:36 | Operative Report ---
Post Operative Report Pre & Post Diagnosis Operation Date: 03/02/22 08:10 Pre-Op Diagnosis: Right femoral neck fracture Post-Op Diagnosis: Right femoral neck fracture I identified the patient and participated in the time-out.: Yes Procedure Operation Date: 03/02/22 08:10 Actual Procedures p Right Bipolar Hip Prosthesis Cemented(Right) - Say Salmeron MD Surgeon Say Salmeron Sticker Machine Operator Elizabeth Cabezas PA-C & Sal Chino PA-C Estimated Blood Loss 100 Findings Consistent with Post-Op Diagnosis Specimens right hip contents per Dr. Salmeron's report Complications none Disposition Accompanied Patient To Recovery: Yes Disposition: PCU Indications fracture of the right hip s/p fall Description of Procedure No fellow or resident available. I assisted with closure of incision and application of dressing. I also assisted with transferring the patient to the bed. I attest to the content of the Intraoperative Record and any orders documented therein. Any exceptions are noted below.
--- NOTE | 2022-03-02 16:43 | Electrocardiogram Report ---
Test Reason : Blood Pressure : / mmHG Vent. Rate : 081 BPM Atrial Rate : 081 BPM P-R Int : 248 ms QRS Dur : 110 ms QT Int : 392 ms P-R-T Axes : 050 -26 005 degrees QTc Int : 455 ms Poor data quality, interpretation may be adversely affected Sinus rhythm with 1st degree A-V block Otherwise normal ECG When compared with ECG of 08-APR-2015 23:09, QRS axis Shifted left Confirmed by Ryan Arzola ([id number]) on 03/02/2022 4:42:42 PM Referred By: REFERRED SELF Confirmed By:Ryan Arzola
--- NOTE | 2022-03-02 16:58 | XRay Report ---
RIGHT HIP 2 VIEWS CLINICAL HISTORY: Postoperative examination. FINDINGS: AP and crosstable lateral views of the right hip are compared to study dated 03/01/2022. The skeletal structures are osteopenic. No acute fracture is seen. A right hip arthroplasty is in near a natomic alignment. 2 cerclage wires are present around the proximal femoral shaft. Soft tissue swelli ng and subcutaneous gas overlying the right hip are expected postoperative changes. IMPRESSION: Expected postoperative findings status post right hip arthroplasty placement. No acute fr acture is seen. Electronically signed by: Renny Tuttle M.D. 03/02/2022 4:57 PM
[2022-03-02] MEDS ORDERED: TAMSULOSIN HCL 0.4 MG CAP PO PRN (17:24)
[2022-03-02] MEDS: INSULIN ASPART PER UNIT SC SCH ×4 (17:33→21:12)
--- NOTE | 2022-03-02 18:02 | Anesthesiology Progress Note ---
Date of Service March 02, 2022 Anesthesia Post Procedure Vital Signs Vital Signs: Temp Pulse Pulse Pulse Pulse Resp BP 03/02/22 17:46 78 16 03/02/22 17:20 37.0 C 75 16 03/02/22 16:55 72 17 03/02/22 16:45 76 20 03/02/22 17:05 37.0 C 74 18 03/02/22 16:35 72 15 03/02/22 16:28 36.7 C 74 16 03/02/22 12:30 37.3 C 60 20 03/02/22 08:00 37.3 C 57 L 18 03/02/22 00:00 37 C 71 20 03/01/22 21:22 36.6 C 76 18 03/01/22 20:40 03/01/22 20:10 80 13 03/01/22 20:00 81 16 03/01/22 20:00 169/92 H 03/01/22 19:50 80 15 03/01/22 19:40 80 15 03/01/22 19:30 77 15 03/01/22 19:30 151/82 H 03/01/22 19:20 80 21 03/01/22 19:10 80 17 03/01/22 19:00 78 13 03/01/22 19:00 149/77 H 03/01/22 18:57 79 17 03/01/22 18:57 158/77 H 03/01/22 18:50 80 16 03/01/22 18:40 77 18 03/01/22 18:30 77 16 03/01/22 18:30 175/87 H 03/01/22 18:20 79 16 03/01/22 18:10 83 17 BP Pulse Ox O2 Del Method O2 Flow Rate 03/02/22 17:46 138/71 98 Nasal Cannula 2 03/02/22 17:20 168/74 H 97 Nasal Cannula 2 03/02/22 16:55 173/75 H 98 Nasal Cannula 2 03/02/22 16:45 171/76 H 98 Oxymask 2 03/02/22 17:05 160/76 H 99 Nasal Cannula 2 03/02/22 16:35 174/77 H 72 L Oxymask 3 03/02/22 16:28 145/78 H 97 Oxymask 5 03/02/22 12:30 162/71 H 94 Nasal Cannula 03/02/22 08:00 131/66 92 Nasal Cannula 03/02/22 00:00 166/83 H 95 Room Air 03/01/22 21:22 173/79 H 95 Nasal Cannula 2 03/01/22 20:40 Room Air 03/01/22 20:10 03/01/22 20:00 03/01/22 20:00 03/01/22 19:50 03/01/22 19:40 03/01/22 19:30 03/01/22 19:30 03/01/22 19:20 03/01/22 19:10 03/01/22 19:00 03/01/22 19:00 03/01/22 18:57 03/01/22 18:57 03/01/22 18:50 03/01/22 18:40 03/01/22 18:30 03/01/22 18:30 03/01/22 18:20 03/01/22 18:10 Pain Intensity Right Hip: Pain Intensity: 2 Transfer of Care Handoff Completed per policy Notes Mental Status: alert / awake / arousable and participated in evaluation Patient Amnestic to Procedure: Yes Nausea / Vomiting: adequately controlled Pain: adequately controlled Airway Patency, RR, SpO2: stable & adequate BP & HR: stable & adequate Hydration State: stable & adequate Neuraxial Anesthesia: was administered and sensory block is resolving Anesthetic Complications: no major complications apparent and Pt Satisfied with anesthetic care
[2022-03-02] MEDS: ceFAZolin 2000MG 2,000 MG/15 ML SYR IV SCH (21:13)
[2022-03-02] MEDS: CARBIDOPA/LEVODOPA 25-250 1 EA TAB PO SCH (21:13)
[2022-03-02] MEDS: SIMVASTATIN 20 MG TAB PO SCH (21:14)
[2022-03-02] MEDS: DOCUSATE SODIUM/SENNA 50/8.6MG TAB PO SCH (21:26)
[2022-03-03] MEDS: ceFAZolin 2000MG 2,000 MG/15 ML SYR IV SCH ×2 (05:09→13:40)
[2022-03-03] MEDS: ACETAMINOPHEN 500 MG TAB PO SCH ×3 (05:09→20:33)
[2022-03-03] MEDS: MoRPHine SULFATE 4 MG/ML 1 ML CARP\\VIAL IV PRN ×2 (05:15→17:04)
--- NOTE | 2022-03-03 07:50 | Orthopedic Progress Note ---
Date of Service March 03, 2022 Assessment & Plan (1) Fracture of femoral neck, right: Plan: POD #1 s/p R hip calderon-arthroplasty, doing as well as expected. Resume diabetic diet. WBAT with walker. OOB to chair. Continue pain control. Plan on changing dressing 03/04/22. Total hip precautions 8 weeks. DVT prophylaxis: TEDs 3 weeks, foot pumps while in hospital, ASA 81 mg BID for 6 weeks. PT/OT. D/C planning. Continue care per primary service. Present on Admission?: Yes Admission and Anticipated Discharge Date Admission Date: March 01, 2022 Subjective Feeling better. Physical Exam Physical Exam: RLE: Sensation to light touch is slightly diminished. BCR < 2 sec. Wiggling toes.Dressing is clean, dry, intact. Results & Data ([facility]) Vital Signs (Past 12 Hours) Vital Signs Temp Pulse Pulse Resp BP Pulse Ox O2 Del Method 03/03/22 07:32 36.6 C 64 16 136/52 L 97 Room Air 03/02/22 21:30 Nasal Cannula 03/02/22 21:00 37.8 C H 83 20 140/67 94 Nasal Cannula 03/02/22 23:37 37.0 C 71 20 121/68 94 Nasal Cannula O2 Flow Rate 03/03/22 07:32 03/02/22 21:30 2 03/02/22 21:00 2 03/02/22 23:37 2 Laboratory Results Laboratory Results WBC 7.41 K/ul (4.8-10.8) 03/02/22 05:42 RBC 3.94 M/uL (4.63-6.08) L 03/02/22 05:42 Hgb 10.9 g/dl (14.0-18.0) L 03/02/22 05:42 Hct 33.1 % (40.1-51.0) L 03/02/22 05:42 MCV 84.0 fL (80.0-100.0) 03/02/22 05:42 MCH 27.7 pg (25.0-34.0) 03/02/22 05:42 MCHC 32.9 g/dL (32.0-36.0) 03/02/22 05:42 RDW Std Deviation 39.8 fL (36.4-46.3) 03/02/22 05:42 RDW Coeff of Herb 13.2 % (11.5-14.5) 03/02/22 05:42 Plt Count 188 K/uL (130-400) 03/02/22 05:42 MPV 9.1 fL (9.4-12.4) L 03/02/22 05:42 Immature Gran % (Auto) 1.1 % 03/01/22 18:00 Neut % (Auto) 62.2 % 03/01/22 18:00 Lymph % (Auto) 21.1 % 03/01/22 18:00 [place] % (Auto) 8.4 % 03/01/22 18:00 Eos % (Auto) 6.7 % 03/01/22 18:00 Baso % (Auto) 0.5 % 03/01/22 18:00 Neut # (Auto) 3.92 K/uL (1.4-6.5) 03/01/22 18:00 Lymph # (Auto) 1.33 K/uL (1.2-3.4) 03/01/22 18:00 [place] # (Auto) 0.53 K/uL (0.24-0.82) 03/01/22 18:00 Eos # (Auto) 0.42 K/uL (0-0.50) 03/01/22 18:00 Baso # (Auto) 0.03 K/uL (0-0.2) 03/01/22 18:00 Immature Gran # (Auto) 0.07 K/uL (0.00-0.02) H 03/01/22 18:00 PT 11.0 Seconds (9.0-12.0) 03/01/22 18:42 INR 1.0 (0.9-1.1) 03/01/22 18:42 APTT 28.2 Seconds (21.0-31.0) 03/01/22 18:42 PTT Ratio 1.0 03/01/22 18:42 Sodium 131 mmol/L (136-145) L 03/02/22 05:42 Potassium 4.2 mmol/L (3.5-5.1) 03/02/22 05:42 Chloride 94 mmol/L (98-107) L 03/02/22 05:42 Carbon Dioxide 32 mmol/L (21-32) 03/02/22 05:42 Anion Gap 5 (3-11) 03/02/22 05:42 BUN 16 mg/dl (6-23) 03/02/22 05:42 Creatinine 0.79 mg/dl (0.6-1.4) 03/02/22 05:42 Est Cr Clr Drug Dosing 101.9 ml/min 03/02/22 05:42 Est GFR ( Amer) 100.4 ml/min 03/02/22 05:42 Est GFR (Non-Af Amer) 86.6 ml/min 03/02/22 05:42 BUN/Creatinine Ratio 20.3 (10-20) H 03/02/22 05:42 Glucose 129 mg/dl (70-99(Fasting)) H 03/02/22 05:42 POC Glucose 171 mg/dl (70-99) H 03/02/22 20:39 Estimat Average Glucose 154 mg/dl 03/02/22 05:42 Hemoglobin A1c 7.0 % (4.5-5.6) H 03/02/22 05:42 Calcium 9.1 mg/dl (8.5-10.1) 03/02/22 05:42 Total Bilirubin 0.8 mg/dl (0.2-1.0) 03/01/22 18:00 AST 24 U/L (13-39) 03/01/22 18:00 ALT 23 U/L (7-52) 03/01/22 18:00 Alkaline Phosphatase 68 U/L (34-104) 03/01/22 18:00 Troponin I High Sens 7.3 pg/ml (0-20) 03/01/22 18:00 Total Protein 7.6 gm/dl (6.0-8.3) 03/01/22 18:00 Albumin 3.9 gm/dl (3.4-5.0) 03/01/22 18:00 Globulin 3.7 gm/dl (2.5-4.0) 03/01/22 18:00 Albumin/Globulin Ratio 1.1 (0.9-2) 03/01/22 18:00 Lipase 14 U/L (11-82) 03/01/22 18:00 25-OH Vitamin D Total 22.5 ng/ml (30-100) L 03/02/22 05:42 Nasal Screen MRSA (PCR) Negative (Negative) 03/02/22 04:00 SARS-CoV-2, RNA, NAAT NEGATIVE (NEGATIVE) 03/01/22 17:10 Blood Type O Negative 03/01/22 21:50 Antibody Screen NEGATIVE 03/01/22 21:[address] 03/01/22 16:54 CT OF THE CERVICAL SPINE WITHOUT CONTRAST CLINICAL HISTORY: Fall. COMPARISON STUDY: No previous studies for comparison. TECHNIQUE: Helical axial images of the cervical spine were obtained without IV contrast. Sagittal and coronal reconstructions were viewed. Automated exposure control was utilized for the study. A dose lowering technique was utilized adhering to the principles of ALARA. FINDINGS: Alignment of the cervical spine is anatomic. Vertebral body heights are maintained. No acute cervical spine fracture or subluxation is present. There is no prevertebral edema. Facet joints are intact. Moderate multilevel disc space narrowing, osteophytosis and facet arthrosis is present. Minimal secretions within the sphenoid sinuses. IMPRESSION: No acute cervical spine fracture or subluxation. ACT 112: Negative or not required by law. Electronically signed by: Kashmir Presley M.D. 03/01/2022 6:[address] 03/01/22 16:54 CT OF THE HEAD WITHOUT CONTRAST CLINICAL HISTORY: Fall. COMPARISON STUDY: No previous studies for comparison. CT DOSE: 1287.95 mGycm TECHNIQUE: Helical axial images of the head were obtained without IV contrast. Automated exposure control was utilized for the study. A dose lowering technique was utilized adhering to the principles of ALARA. FINDINGS: No acute intracranial hemorrhage, midline shift or mass effect is present. The ventricular system is unremarkable. The basal cisterns are patent. No extra-axial collections are present. There are no findings to suggest acute dural sinus thrombosis or acute territorial infarct. There is no acute calvarial fracture. Moderate ethmoid sinus mucosal thickening is present. IMPRESSION: 1. No acute intracranial findings. 2. No acute calvarial fracture. 3. Ethmoid sinus mucosal thickening. ACT 112: Negative or not required by law. Electronically signed by: Kashmir Presley M.D. 03/01/2022 5:56 PM Hip/Pelvis X-Ray 03/01/22 16:54 XR hip RT 2V w pelvis CLINICAL HISTORY: fall TECHNIQUE: 2 views of the right hip and single frontal view of the pelvis were obtained. Comparison: None available at the time of this dictation. FINDINGS: There is a fracture of the femoral neck with overriding of fragments. Mild degenerative changes are seen in the joints. Soft tissue swelling is seen. IMPRESSION: Right femoral neck fracture with associated soft tissue swelling. ACT 112: Negative or not required by law. Electronically signed by: Kalen Payne M.D. 03/01/2022 5:44 PM Chest X-Ray 03/01/22 16:55 XR chest 1V portable CLINICAL HISTORY: Chest pain, nonspecific TECHNIQUE: Single frontal radiograph of the chest was obtained. Comparison: None available at the time of this dictation. FINDINGS: No lines and tubes are seen. The cardiomediastinal silhouette is normal. Lungs are underinflated but clear. No evidence of pleural effusion or pneumothorax. IMPRESSION: Lungs are underinflated without evidence of acute abnormality. ACT 112: Negative or not required by law. Electronically signed by: Kalen Payne M.D. 03/01/2022 5:43 PM Ankle X-Ray 03/01/22 19:54 XR ankle RT 2V CLINICAL HISTORY: fall, right ankle pain COMPARISON: None FINDINGS: Alignment of the right ankle is anatomic. No acute fracture. Talar dome is intact. Vascular calcification is incidentally noted within the calf vessels. IMPRESSION: No fracture or dislocation within the right ankle. ACT 112: Negative or not required by law. Electronically signed by: Kashmir Presley M.D. 03/01/2022 8:20 PM Hip X-Ray 03/02/22 16:05 RIGHT HIP 2 VIEWS CLINICAL HISTORY: Postoperative examination. FINDINGS: AP and crosstable lateral views of the right hip are compared to study dated 03/01/2022. The skeletal structures are osteopenic. No acute fracture is seen. A right hip arthroplasty is in near anatomic alignment. 2 cerclage wires are present around the proximal femoral shaft. Soft tissue swelling and subcutaneous gas overlying the right hip are expected postoperative changes. IMPRESSION: Expected postoperative findings status post right hip arthroplasty placement. No acute fracture is seen. Electronically signed by: Renny Tuttle M.D. 03/02/2022 4:57 PM
[2022-03-03 07:57] LABS: Hematocrit (blood only) 29.8 % (40.1-51.0); Hemoglobin 9.8 g/dl (14.0-18.0); Mean Corpuscular Hemoglobin 27.7 pg (25.0-34.0); Mean Corpuscular Hgb Conc 32.9 g/dL (32.0-36.0); Mean Corpuscular Volume 84.2 fL (80.0-100.0); Mean Platelet Volume 9.5 fL (9.4-12.4); Platelet Count 190 K/uL (130-400); RDW Coefficient of Variation 13.4 % (11.5-14.5); RDW Standard Deviation 41.7 fL (36.4-46.3); Red Blood Count 3.54 M/uL (4.63-6.08); White Blood Count 7.49 K/ul (4.8-10.8)
[2022-03-03 08:27] LABS: BUN Creatinine Ratio 22.7 (10-20); Calcium 8.4 mg/dl (8.5-10.1); Est GFR (African American) 86.9 ml/min; Magnesium 1.8 mg/dl (1.7-2.4); Phosphorus 4.3 mg/dl (2.5-4.9); Potassium 3.8 mmol/L (3.5-5.1)
[2022-03-03] MEDS: INSULIN ASPART PER UNIT SC SCH ×4 (09:22→20:32)
[2022-03-03] MEDS: ATENOLOL 50 MG TABLET PO SCH ×2 (09:22→20:33)
[2022-03-03] MEDS: FAMOTIDINE 40 MG TABLET PO SCH (09:22)
[2022-03-03] MEDS: hydroCHLOROthiazide 25 MG TAB PO SCH (09:22)
--- NOTE | 2022-03-03 09:22 | Hospitalist Progress Note ---
Date of Service March 03, 2022 Assessment & Plan (1) Fracture of femoral neck, right: Plan: Patient presenting from home for evaluation after a mechanical fall and Right hip pain X-ray shows right femoral neck fracture Orthopedics consulted Pt now s/p surgical repair - R hip calderon-arthroplasty,(03/02) w/ Dr. Salmeron Tolerated procedure well Postop management as per Ortho WBAT with walker. OOB to chair. Continue pain control. Plan on changing dressing 03/04/22. Total hip precautions 8 weeks. DVT prophylaxis: TEDs 3 weeks, foot pumps while in hospital, ASA 81 mg BID for 6 weeks. PT/OT (2) Hypertension: Plan: Continue home meds including atenolol, HCTZ, lisinopril Monitor BP (3) DM type 2 (diabetes mellitus, type 2): Plan: Hgb A1c 6.9 09/2021 Hold oral agents and utilize NovoLog per protocol while hospitalized (4) Dyslipidemia: Plan: Continue statin (5) RLS (restless legs syndrome): Plan: Continue carbidopa-levodopa HS (6) GERD (gastroesophageal reflux disease): Plan: Continue H2 jo-ann (7) Depression: Plan: Continue citalopram DVT prophylaxis TEDs, foot pumps while in hospital, ASA Postop DVT prophylaxis as per Ortho Admission and Anticipated Discharge Date Admission Date: March 01, 2022 Subjective Patient seen in follow-up of right femoral fracture, status post surgical repair Patient sitting up in bed, in no acute distress Tolerated procedure well. Family is currently present at the bedside. Patient is alert oriented answering questions appropriately. Denies any fevers chills, nausea vomiting, shortness of breath or chest pain. Reports some postsurgical pain in his leg. Review of Systems Review of Systems: All systems reviewed & are unremarkable except as noted in Subjective Physical Exam Physical Exam: Constitutional:L WD/WN, vitals as a luke Eyes: PERRL, EOMI, conju nctivae normal, an icteric sclerae ENMT: external ear and n ose normal, oropha rynx normal Respiratory: normal respiratory effort, lungs meliton ar to auscultation Cardiovascular:L Rate/Rhythm: regul ar rate and regula r rhythm Vessels: normal peripheral pulses Extremiti es: no edema Gastrointestinal ( Abdomen): normal bowel sound s, soft, nontender Musculoskeletal: right hip- surgica l dressings applie d Skin: no rashes, warm an d dry Neurologic: PERRL, EOMI, no fa ce palsy, no dysar thria Psychiatric: A+Ox3, euthymic af fect Results & Data Results & Data ([facility]) Vital Signs (Past 12 Hours) Vital Signs Temp Pulse Pulse Resp BP Pulse Ox O2 Del Method 03/03/22 07:32 36.6 C 64 16 136/52 L 97 Room Air 03/02/22 21:30 Nasal Cannula 03/02/22 23:37 37.0 C 71 20 121/68 94 Nasal Cannula O2 Flow Rate 03/03/22 07:32 03/02/22 21:30 2 03/02/22 23:37 2 Laboratory Results 03/03/22 03/03/22 03/03/22 Range/Units 08:10 07:11 07:11 WBC 7.49 (4.8-10.8) K/ul RBC 3.54 L (4.63-6.08) M/uL Hgb 9.8 L (14.0-18.0) g/dl Hct 29.8 L (40.1-51.0) % MCV 84.2 (80.0-100.0) fL MCH 27.7 (25.0-34.0) pg MCHC 32.9 (32.0-36.0) g/dL RDW Std Deviation 41.7 (36.4-46.3) fL RDW Coeff of Herb 13.4 (11.5-14.5) % Plt Count 190 (130-400) K/uL MPV 9.5 (9.4-12.4) fL Sodium 129 L (136-145) mmol/L Potassium 3.8 (3.5-5.1) mmol/L Chloride 93 L (98-107) mmol/L Carbon Dioxide 30 (21-32) mmol/L Anion Gap 6 (3-11) BUN 22 (6-23) mg/dl Creatinine 0.97 (0.6-1.4) mg/dl Est Cr Clr Drug Dosing 83.0 ml/min Est GFR ( Amer) 86.9 ml/min Est GFR (Non-Af Amer) 75.0 ml/min BUN/Creatinine Ratio 22.7 H (10-20) Glucose 144 H (70-99(Fasting)) mg/dl POC Glucose 155 H (70-99) mg/dl Calcium 8.4 L (8.5-10.1) mg/dl Phosphorus 4.3 (2.5-4.9) mg/dl Magnesium 1.8 (1.7-2.4) mg/dl 03/02/22 03/02/22 03/02/22 Range/Units 20:39 17:41 16:32 WBC (4.8-10.8) K/ul RBC (4.63-6.08) M/uL Hgb (14.0-18.0) g/dl Hct (40.1-51.0) % MCV (80.0-100.0) fL MCH (25.0-34.0) pg MCHC (32.0-36.0) g/dL RDW Std Deviation (36.4-46.3) fL RDW Coeff of Herb (11.5-14.5) % Plt Count (130-400) K/uL MPV (9.4-12.4) fL Sodium (136-145) mmol/L Potassium (3.5-5.1) mmol/L Chloride (98-107) mmol/L Carbon Dioxide (21-32) mmol/L Anion Gap (3-11) BUN (6-23) mg/dl Creatinine (0.6-1.4) mg/dl Est Cr Clr Drug Dosing ml/min Est GFR ( Amer) ml/min Est GFR (Non-Af Amer) ml/min BUN/Creatinine Ratio (10-20) Glucose (70-99(Fasting)) mg/dl POC Glucose 171 H 109 H 119 H (70-99) mg/dl Calcium (8.5-10.1) mg/dl Phosphorus (2.5-4.9) mg/dl Magnesium (1.7-2.4) mg/dl Medications Administered Current Inpatient Medications Acetaminophen (Acetaminophen 500 Mg Tab) 1,000 mg PO Q8H ZULEYMA Stop: 03/31/22 21:21 Last Admin: 03/03/22 05:09 Dose: 1,000 mg Aspirin (Aspirin 81 Mg Ectab) 81 mg PO BID ZULEYMA Stop: 04/02/22 08:59 Atenolol (Atenolol 50 Mg Tablet) 50 mg PO BID ZULEYMA Stop: 03/31/22 21:21 Last Admin: 03/02/22 21:13 Dose: 50 mg Bisacodyl (Bisacodyl 10 Mg Supp) 10 mg [place] DAILY PRN PRN Reason: Constipation Stop: 03/31/22 21:21 Carbidopa/Levodopa (Carbidopa/Levodopa 25-250 1 Ea Tab) 1 tab PO HS ZULEYMA Stop: 03/31/22 21:21 Last Admin: 03/02/22 21:13 Dose: 1 tab Citalopram Hydrobromide (Citalopram 20 Mg Tab) 20 mg PO DAILY ZULEYMA Stop: 04/01/22 08:59 Last Admin: 03/02/22 07:48 Dose: 20 mg Dextrose (Dextrose 50% 50 Ml Syringe) 25 - 50 ml IV UD PRN; Protocol PRN Reason: Hypoglycemia Protocol Stop: 03/31/22 21:21 Ergocalciferol (Ergocalciferol 50,000 Units 1250 Mcg Cap) 50,000 units PO Q7D ZULEYMA Stop: 04/02/22 09:29 Famotidine (Famotidine 40 Mg Tablet) 40 mg PO DAILY ZULEYMA Stop: 04/01/22 08:59 Last Admin: 03/02/22 07:49 Dose: 40 mg Glucagon (Glucagon For Inj 1 Mg Vial) 1 mg SQ UD PRN; Protocol PRN Reason: Hypoglycemia Protocol Stop: 03/31/22 21:21 Glucose (Glucose 40% Gel 15 Gm Tube) 15 - 30 gm PO UD PRN; Protocol PRN Reason: Hypoglycemia Protocol Stop: 03/31/22 21:21 Glucose (Glucose 10 Tab/Tube) 4 - 8 tab PO UD PRN; Protocol PRN Reason: Hypoglycemia Treatment Stop: 03/31/22 21:21 Hydrochlorothiazide (Hydrochlorothiazide 25 Mg Tab) 25 mg PO DAILY ZULEYMA Stop: 04/01/22 08:59 Last Admin: 03/02/22 07:48 Dose: 25 mg Cefazolin Sodium (Ancef 2000mg) 2,000 mg in 15 mls @ 3.75 mls/min IV Q8H ZULEYMA Stop: 03/03/22 20:59 Last Admin: 03/03/22 05:09 Dose: 3.75 mls/min Insulin Aspart (Insulin Aspart Per Unit) 0 units SC ACHS ZULEYMA Stop: 04/01/22 20:59 Last Admin: 03/02/22 21:12 Dose: 1 units Lisinopril (Lisinopril 10 Mg Tab) 10 mg PO DAILY ZULEYMA Stop: 04/01/22 08:59 Last Admin: 03/02/22 07:48 Dose: 10 mg Magnesium Hydroxide (Magnesium Hydroxide Susp 30 Ml Udc) 30 ml PO DAILY PRN PRN Reason: Constipation Stop: 03/31/22 21:21 Miscellaneous (Carbohydrates For Hypoglycemia ) 15 - 30 gm PO UD PRN PRN Reason: Hypoglycemia Protocol Stop: 03/31/22 21:21 Morphine Sulfate (Morphine Sulfate 4 Mg/Ml 1 Ml Carp\Vial) 4 mg IV Q4H PRN PRN Reason: Pain (7,8,9,10) Stop: 03/15/22 21:21 Last Admin: 03/03/22 05:15 Dose: 4 mg Naloxone HCl (Naloxone Hcl 0.4 Mg/1 Ml Vial/Carp) 0.1 mg IV UD PRN PRN Reason: Opiate Overdose Stop: 03/31/22 21:21 Ondansetron HCl (Ondansetron Inj 2 Mg/Ml 2 Ml Vial) 4 mg IV Q6H PRN PRN Reason: Nausea And Vomiting Stop: 03/31/22 21:21 Oxycodone HCl (Oxycodone Hcl Ir 5 Mg Tab (Immediate Release)) 5 mg PO Q6H PRN PRN Reason: MODERATE Pain (4,5,6) & Pre PT Stop: 03/15/22 21:21 Last Admin: 03/02/22 09:06 Dose: 5 mg Senna/Docusate Sodium (Docusate Sodium/Senna 50/8.6mg Tab) 2 tab PO HS ZULEYMA Stop: 03/31/22 21:21 Last Admin: 03/02/22 21:26 Dose: 2 tab Simvastatin (Simvastatin 20 Mg Tab) 20 mg PO PM ZULEYMA Stop: 03/31/22 21:21 Last Admin: 03/02/22 21:14 Dose: 20 mg Tamsulosin HCl (Tamsulosin Hcl 0.4 Mg Cap) 0.4 mg PO QAM PRN PRN Reason: UNABLE to void Stop: 04/01/22 17:23
[2022-03-03] MEDS ORDERED: ERGOCALCIFEROL 50,000 UNITS 1250 MCG CAP PO SCH (10:15)
[2022-03-03] MEDS: lisinopril 10 MG TAB PO SCH (11:39)
[2022-03-03] MEDS: ASPIRIN 81 MG ECTAB PO SCH ×2 (11:39→20:32)
[2022-03-03] MEDS: CITALOPRAM 20 MG TAB PO SCH (11:40)
[2022-03-03] MEDS: oxyCODONE HCL IR 5 MG TAB (IMMEDIATE RELEASE) PO PRN (16:14)
[2022-03-03] MEDS: DOCUSATE SODIUM/SENNA 50/8.6MG TAB PO SCH (20:31)
[2022-03-03] MEDS: SIMVASTATIN 20 MG TAB PO SCH (20:32)
[2022-03-03] MEDS: CARBIDOPA/LEVODOPA 25-250 1 EA TAB PO SCH (20:34)
[2022-03-04] MEDS: ACETAMINOPHEN 500 MG TAB PO SCH ×3 (05:41→20:15)
--- NOTE | 2022-03-04 07:32 | Hospitalist Progress Note ---
Date of Service March 04, 2022 Assessment & Plan (1) Fracture of femoral neck, right: Plan: Patient presenting from home for evaluation after a mechanical fall and Right hip pain X-ray shows right femoral neck fracture Orthopedics consulted Pt now s/p surgical repair - R hip calderon-arthroplasty,(03/02) w/ Dr. Salmeron Tolerated procedure well Postop management as per Ortho WBAT with walker. OOB to chair. Continue pain control. Dressing changed 03/04/22, will replace with Silverlon prior to d/c. Total hip precautions 8 weeks. DVT prophylaxis: TEDs 3 weeks, foot pumps while in hospital, ASA 81 mg BID for 6 weeks. PT/OT (2) Hypertension: Plan: Continue home meds including atenolol, HCTZ, lisinopril Monitor BP Hyponatremia -possibly secondary to HCTZ - will hold and will cont. to monitor Pt seems to have good PO intake (3) DM type 2 (diabetes mellitus, type 2): Plan: Hgb A1c 6.9 09/2021 Hold oral agents and utilize NovoLog per protocol while hospitalized (4) Dyslipidemia: Plan: Continue statin (5) RLS (restless legs syndrome): Plan: Continue carbidopa-levodopa HS (6) GERD (gastroesophageal reflux disease): Plan: Continue H2 jo-ann (7) Depression: Plan: Continue citalopram DVT prophylaxis TEDs, foot pumps while in hospital, ASA Postop DVT prophylaxis as per Ortho Admission and Anticipated Discharge Date Admission Date: March 01, 2022 Subjective Patient seen in follow-up of right femoral fracture, status post surgical repair Patient sitting up in bed, in no acute distress Tolerated procedure well. Patient is alert oriented answering questions appropriately. Denies any fevers chills, nausea vomiting, shortness of breath or chest pain. Reports some postsurgical pain in his leg. Review of Systems Review of Systems: All systems reviewed & are unremarkable except as noted in Subjective Physical Exam Physical Exam: Constitutional:L WD/WN, vitals as a luke Eyes: PERRL, EOMI, conju nctivae normal, an icteric sclerae ENMT: external ear and n ose normal, oropha rynx normal Respiratory: normal respiratory effort, lungs meliton ar to auscultation Cardiovascular:L Rate/Rhythm: regul ar rate and regula r rhythm Vessels: normal peripheral pulses Extremiti es: no edema Gastrointestinal ( Abdomen): normal bowel sound s, soft, nontender Musculoskeletal: right hip- surgica l dressings applie d Skin: no rashes, warm an d dry Neurologic: PERRL, EOMI, no fa ce palsy, no dysar thria Psychiatric: A+Ox3, euthymic af fect Results & Data Results & Data ([facility]) Vital Signs (Past 12 Hours) Vital Signs Temp Pulse Resp BP Pulse Ox O2 Del Method 03/03/22 20:24 37.4 C 70 16 151/67 H 99 Room Air Laboratory Results 03/03/22 03/03/22 03/03/22 Range/Units 20:21 17:28 12:11 WBC (4.8-10.8) K/ul RBC (4.63-6.08) M/uL Hgb (14.0-18.0) g/dl Hct (40.1-51.0) % MCV (80.0-100.0) fL MCH (25.0-34.0) pg MCHC (32.0-36.0) g/dL RDW Std Deviation (36.4-46.3) fL RDW Coeff of Herb (11.5-14.5) % Plt Count (130-400) K/uL MPV (9.4-12.4) fL Sodium (136-145) mmol/L Potassium (3.5-5.1) mmol/L Chloride (98-107) mmol/L Carbon Dioxide (21-32) mmol/L Anion Gap (3-11) BUN (6-23) mg/dl Creatinine (0.6-1.4) mg/dl Est Cr Clr Drug Dosing ml/min Est GFR ( Amer) ml/min Est GFR (Non-Af Amer) ml/min BUN/Creatinine Ratio (10-20) Glucose (70-99(Fasting)) mg/dl POC Glucose 216 H 223 H 189 H (70-99) mg/dl Calcium (8.5-10.1) mg/dl Phosphorus (2.5-4.9) mg/dl Magnesium (1.7-2.4) mg/dl 03/03/22 03/03/22 03/03/22 Range/Units 08:10 07:11 07:11 WBC 7.49 (4.8-10.8) K/ul RBC 3.54 L (4.63-6.08) M/uL Hgb 9.8 L (14.0-18.0) g/dl Hct 29.8 L (40.1-51.0) % MCV 84.2 (80.0-100.0) fL MCH 27.7 (25.0-34.0) pg MCHC 32.9 (32.0-36.0) g/dL RDW Std Deviation 41.7 (36.4-46.3) fL RDW Coeff of Herb 13.4 (11.5-14.5) % Plt Count 190 (130-400) K/uL MPV 9.5 (9.4-12.4) fL Sodium 129 L (136-145) mmol/L Potassium 3.8 (3.5-5.1) mmol/L Chloride 93 L (98-107) mmol/L Carbon Dioxide 30 (21-32) mmol/L Anion Gap 6 (3-11) BUN 22 (6-23) mg/dl Creatinine 0.97 (0.6-1.4) mg/dl Est Cr Clr Drug Dosing 83.0 ml/min Est GFR ( Amer) 86.9 ml/min Est GFR (Non-Af Amer) 75.0 ml/min BUN/Creatinine Ratio 22.7 H (10-20) Glucose 144 H (70-99(Fasting)) mg/dl POC Glucose 155 H (70-99) mg/dl Calcium 8.4 L (8.5-10.1) mg/dl Phosphorus 4.3 (2.5-4.9) mg/dl Magnesium 1.8 (1.7-2.4) mg/dl Medications Administered Current Inpatient Medications Acetaminophen (Acetaminophen 500 Mg Tab) 1,000 mg PO Q8H ZULEYMA Stop: 03/31/22 21:21 Last Admin: 03/04/22 05:41 Dose: 1,000 mg Aspirin (Aspirin 81 Mg Ectab) 81 mg PO BID ZULEYMA Stop: 04/02/22 08:59 Last Admin: 03/03/22 20:32 Dose: 81 mg Atenolol (Atenolol 50 Mg Tablet) 50 mg PO BID ZULEYMA Stop: 03/31/22 21:21 Last Admin: 03/03/22 20:33 Dose: 50 mg Bisacodyl (Bisacodyl 10 Mg Supp) 10 mg [place] DAILY PRN PRN Reason: Constipation Stop: 03/31/22 21:21 Carbidopa/Levodopa (Carbidopa/Levodopa 25-250 1 Ea Tab) 1 tab PO HS [facility] Stop: 03/31/22 21:21 Last Admin: 03/03/22 20:34 Dose: 1 tab Citalopram Hydrobromide (Citalopram 20 Mg Tab) 20 mg PO DAILY ZULEYMA Stop: 04/01/22 08:59 Last Admin: 03/03/22 11:40 Dose: 20 mg Dextrose (Dextrose 50% 50 Ml Syringe) 25 - 50 ml IV UD PRN; Protocol PRN Reason: Hypoglycemia Protocol Stop: 03/31/22 21:21 Ergocalciferol (Ergocalciferol 50,000 Units 1250 Mcg Cap) 50,000 units PO Sa@0900 [facility] Stop: 04/02/22 10:14 Last Admin: 03/03/22 11:39 Dose: 50,000 units Famotidine (Famotidine 40 Mg Tablet) 40 mg PO DAILY ZULEYMA Stop: 04/01/22 08:59 Last Admin: 03/03/22 09:22 Dose: 40 mg Glucagon (Glucagon For Inj 1 Mg Vial) 1 mg SQ UD PRN; Protocol PRN Reason: Hypoglycemia Protocol Stop: 03/31/22 21:21 Glucose (Glucose 40% Gel 15 Gm Tube) 15 - 30 gm PO UD PRN; Protocol PRN Reason: Hypoglycemia Protocol Stop: 03/31/22 21:21 Glucose (Glucose 10 Tab/Tube) 4 - 8 tab PO UD PRN; Protocol PRN Reason: Hypoglycemia Treatment Stop: 03/31/22 21:21 Hydrochlorothiazide (Hydrochlorothiazide 25 Mg Tab) 25 mg PO DAILY ZULEYMA Stop: 04/01/22 08:59 Last Admin: 03/03/22 09:22 Dose: 25 mg Insulin Aspart (Insulin Aspart Per Unit) 0 units SC ACHS ZULEYMA Stop: 04/01/22 20:59 Last Admin: 03/03/22 20:32 Dose: 3 units Lisinopril (Lisinopril 10 Mg Tab) 10 mg PO DAILY ZULEYMA Stop: 04/01/22 08:59 Last Admin: 03/03/22 11:39 Dose: 10 mg Magnesium Hydroxide (Magnesium Hydroxide Susp 30 Ml Udc) 30 ml PO DAILY PRN PRN Reason: Constipation Stop: 03/31/22 21:21 Miscellaneous (Carbohydrates For Hypoglycemia ) 15 - 30 gm PO UD PRN PRN Reason: Hypoglycemia Protocol Stop: 03/31/22 21:21 Morphine Sulfate (Morphine Sulfate 4 Mg/Ml 1 Ml Carp\Vial) 4 mg IV Q4H PRN PRN Reason: Pain (7,8,9,10) Stop: 03/15/22 21:21 Last Admin: 03/03/22 17:04 Dose: 4 mg Naloxone HCl (Naloxone Hcl 0.4 Mg/1 Ml Vial/Carp) 0.1 mg IV UD PRN PRN Reason: Opiate Overdose Stop: 03/31/22 21:21 Ondansetron HCl (Ondansetron Inj 2 Mg/Ml 2 Ml Vial) 4 mg IV Q6H PRN PRN Reason: Nausea And Vomiting Stop: 03/31/22 21:21 Oxycodone HCl (Oxycodone Hcl Ir 5 Mg Tab (Immediate Release)) 5 mg PO Q6H PRN PRN Reason: MODERATE Pain (4,5,6) & Pre PT Stop: 03/15/22 21:21 Last Admin: 03/03/22 16:14 Dose: 5 mg Senna/Docusate Sodium (Docusate Sodium/Senna 50/8.6mg Tab) 2 tab PO HS ZULEYMA Stop: 03/31/22 21:21 Last Admin: 03/03/22 20:31 Dose: 2 tab Simvastatin (Simvastatin 20 Mg Tab) 20 mg PO PM ZULEYMA Stop: 03/31/22 21:21 Last Admin: 03/03/22 20:32 Dose: 20 mg Tamsulosin HCl (Tamsulosin Hcl 0.4 Mg Cap) 0.4 mg PO QAM PRN PRN Reason: UNABLE to void Stop: 04/01/22 17:23
[2022-03-04 08:17] LABS: Hematocrit (blood only) 26.5 % (40.1-51.0); Mean Corpuscular Volume 82.3 fL (80.0-100.0); Mean Platelet Volume 9.1 fL (9.4-12.4); Platelet Count 161 K/uL (130-400); RDW Coefficient of Variation 13.2 % (11.5-14.5); RDW Standard Deviation 39.7 fL (36.4-46.3); Red Blood Count 3.22 M/uL (4.63-6.08); White Blood Count 7.15 K/ul (4.8-10.8)
[2022-03-04 08:40] LABS: BUN Creatinine Ratio 26.9 (10-20); Calcium 8.1 mg/dl (8.5-10.1); Creatinine Clr Calc Pharmacy 86.5 ml/min; Est GFR (African American) 91.5 ml/min; Est GFR (Non-African American) 78.9 ml/min; Magnesium 1.9 mg/dl (1.7-2.4); Phosphorus 3.1 mg/dl (2.5-4.9); Potassium 3.6 mmol/L (3.5-5.1)
[2022-03-04] MEDS: ATENOLOL 50 MG TABLET PO SCH ×2 (09:03→20:15)
[2022-03-04] MEDS: CITALOPRAM 20 MG TAB PO SCH (09:04)
[2022-03-04] MEDS: FAMOTIDINE 40 MG TABLET PO SCH (09:04)
[2022-03-04] MEDS: hydroCHLOROthiazide 25 MG TAB PO SCH (09:04)
[2022-03-04] MEDS: lisinopril 10 MG TAB PO SCH (09:05)
[2022-03-04] MEDS: ASPIRIN 81 MG ECTAB PO SCH ×2 (09:05→20:16)
[2022-03-04] MEDS: INSULIN ASPART PER UNIT SC SCH ×4 (09:10→20:59)
--- NOTE | 2022-03-04 09:30 | Orthopedic Progress Note ---
Date of Service March 04, 2022 Assessment & Plan (1) Fracture of femoral neck, right: Plan: POD #2 s/p R hip calderon-arthroplasty, doing as well as expected. Resume diabetic diet. WBAT with walker. OOB to chair. Continue pain control. Dressing changed 03/04/22, will replace with Silverlon prior to d/c. Total hip precautions 8 weeks. DVT prophylaxis: TEDs 3 weeks, foot pumps while in hospital, ASA 81 mg BID for 6 weeks. PT/OT. D/C planning. Continue care per primary service. Admission and Anticipated Discharge Date Admission Date: March 01, 2022 Subjective Pain right hip and unable to raise leg off bed. Light headed when ambulating yesterday. Physical Exam Physical Exam: RLE: Sensation to light touch is slightly diminished. BCR < 2 sec. Wiggling toes. Incision is clean, dry, intact. Results & Data ([facility]) Vital Signs (Past 12 Hours) Vital Signs Temp Pulse Resp BP Pulse Ox O2 Del Method 03/04/22 09:01 69 146/69 H 03/04/22 07:35 36.9 C 66 16 138/71 95 Room Air Laboratory Results 03/04/22 03/04/22 03/04/22 Range/Units 08:06 08:03 08:03 WBC 7.15 (4.8-10.8) K/ul RBC 3.22 L (4.63-6.08) M/uL Hgb 9.0 L (14.0-18.0) g/dl Hct 26.5 L (40.1-51.0) % MCV 82.3 (80.0-100.0) fL MCH 28.0 (25.0-34.0) pg MCHC 34.0 (32.0-36.0) g/dL RDW Std Deviation 39.7 (36.4-46.3) fL RDW Coeff of Herb 13.2 (11.5-14.5) % Plt Count 161 (130-400) K/uL MPV 9.1 L (9.4-12.4) fL Sodium 128 L (136-145) mmol/L Potassium 3.6 (3.5-5.1) mmol/L Chloride 92 L (98-107) mmol/L Carbon Dioxide 29 (21-32) mmol/L Anion Gap 7 (3-11) BUN 25 H (6-23) mg/dl Creatinine 0.93 (0.6-1.4) mg/dl Est Cr Clr Drug Dosing 86.5 ml/min Est GFR ( Amer) 91.5 ml/min Est GFR (Non-Af Amer) 78.9 ml/min BUN/Creatinine Ratio 26.9 H (10-20) Glucose 155 H (70-99(Fasting)) mg/dl POC Glucose 176 H (70-99) mg/dl Calcium 8.1 L (8.5-10.1) mg/dl Phosphorus 3.1 D (2.5-4.9) mg/dl Magnesium 1.9 (1.7-2.4) mg/dl 03/03/22 03/03/22 03/03/22 Range/Units 20:21 17:28 12:11 WBC (4.8-10.8) K/ul RBC (4.63-6.08) M/uL Hgb (14.0-18.0) g/dl Hct (40.1-51.0) % MCV (80.0-100.0) fL MCH (25.0-34.0) pg MCHC (32.0-36.0) g/dL RDW Std Deviation (36.4-46.3) fL RDW Coeff of Herb (11.5-14.5) % Plt Count (130-400) K/uL MPV (9.4-12.4) fL Sodium (136-145) mmol/L Potassium (3.5-5.1) mmol/L Chloride (98-107) mmol/L Carbon Dioxide (21-32) mmol/L Anion Gap (3-11) BUN (6-23) mg/dl Creatinine (0.6-1.4) mg/dl Est Cr Clr Drug Dosing ml/min Est GFR ( Amer) ml/min Est GFR (Non-Af Amer) ml/min BUN/Creatinine Ratio (10-20) Glucose (70-99(Fasting)) mg/dl POC Glucose 216 H 223 H 189 H (70-99) mg/dl Calcium (8.5-10.1) mg/dl Phosphorus (2.5-4.9) mg/dl Magnesium (1.7-2.4) mg/dl
[2022-03-04] MEDS: oxyCODONE HCL IR 5 MG TAB (IMMEDIATE RELEASE) PO PRN ×2 (10:15→20:26)
[2022-03-04] MEDS: SIMVASTATIN 20 MG TAB PO SCH (20:14)
[2022-03-04] MEDS: CARBIDOPA/LEVODOPA 25-250 1 EA TAB PO SCH (20:16)
[2022-03-04] MEDS: DOCUSATE SODIUM/SENNA 50/8.6MG TAB PO SCH (20:27)
[2022-03-05] MEDS: MoRPHine SULFATE 4 MG/ML 1 ML CARP\\VIAL IV PRN ×3 (04:20→20:18)
[2022-03-05] MEDS: ACETAMINOPHEN 500 MG TAB PO SCH ×3 (04:21→20:15)
[2022-03-05 08:33] LABS: Hematocrit (blood only) 26.4 % (40.1-51.0); Mean Corpuscular Hemoglobin 27.8 pg (25.0-34.0); Mean Corpuscular Hgb Conc 34.1 g/dL (32.0-36.0); Mean Corpuscular Volume 81.5 fL (80.0-100.0); Mean Platelet Volume 9.6 fL (9.4-12.4); Platelet Count 188 K/uL (130-400); RDW Coefficient of Variation 13.2 % (11.5-14.5); RDW Standard Deviation 39.2 fL (36.4-46.3); Red Blood Count 3.24 M/uL (4.63-6.08); White Blood Count 7.17 K/ul (4.8-10.8)
[2022-03-05 08:52] LABS: BUN Creatinine Ratio 20.5 (10-20); Calcium 8.4 mg/dl (8.5-10.1); Creatinine Clr Calc Pharmacy 91.4 ml/min; Est GFR (Non-African American) 82.9 ml/min; Phosphorus 3.2 mg/dl (2.5-4.9); Potassium 3.9 mmol/L (3.5-5.1)
[2022-03-05] MEDS: ATENOLOL 50 MG TABLET PO SCH ×2 (09:28→20:15)
[2022-03-05] MEDS: CITALOPRAM 20 MG TAB PO SCH (09:28)
[2022-03-05] MEDS: FAMOTIDINE 40 MG TABLET PO SCH (09:28)
[2022-03-05] MEDS: lisinopril 10 MG TAB PO SCH (09:28)
[2022-03-05] MEDS: ASPIRIN 81 MG ECTAB PO SCH ×2 (09:28→20:15)
[2022-03-05] MEDS: INSULIN ASPART PER UNIT SC SCH ×4 (09:40→22:01)
--- NOTE | 2022-03-05 09:52 | Orthopedic Progress Note ---
Date of Service March 05, 2022 Assessment & Plan (1) Fracture of femoral neck, right: Plan: POD #3 s/p R hip calderon-arthroplasty, doing as well as expected. Resume diabetic diet. WBAT with walker. OOB to chair. Continue pain control. Dressing changed 03/04/22, will replace with Silverlon prior to d/c. Silverlon dressing in patient's chart. Total hip precautions 8 weeks. DVT prophylaxis: TEDs 3 weeks, foot pumps while in hospital, ASA 81 mg BID for 6 weeks. PT/OT. D/C to rehab, pending placement, case management following Continue care per primary service. F/u with me in two weeks in the office for Zipline removal Admission and Anticipated Discharge Date Admission Date: March 01, 2022 Subjective Pt seen and examined bedside. Said he is doing well. Working well with PT and walking with walker. Pain can go up to an 8/10 but is controlled with medications. Denies F/C, CP, SOB. He has some tingling in his foot that he said has been there since injury but it has improved since the surgery. Physical Exam Physical Exam: General: Pt laying in hospital bed AA&O, in NAD, calm and cooperative during exam Lower Extremity: Dressing in tact and not saturated. Pt has full ROM of ankle and all 5 digits. Pt has 3+/5 strength with resisted DF/PF. Pt unable to do SLR. Quad set in tact. NVI with sensation to light touch distally and good distal pulses present. Lower extremity noted to have good color and temperature with no signs of vascular or lymphatic insufficiency. Results & Data ([facility]) Vital Signs (Past 12 Hours) Vital Signs Temp Pulse Resp BP Pulse Ox O2 Del Method 03/05/22 08:40 37.0 C 64 18 134/72 93 Room Air 03/04/22 22:54 37.6 C H 73 20 138/67 94 Room Air
--- NOTE | 2022-03-05 13:56 | Hospitalist Progress Note ---
Date of Service March 05, 2022 Assessment & Plan (1) Fracture of femoral neck, right: Plan: Patient presenting from home for evaluation after a mechanical fall and Right hip pain X-ray shows right femoral neck fracture Orthopedics consulted Pt now s/p surgical repair - R hip calderon-arthroplasty,(03/02) w/ Dr. Salmeron Tolerated procedure well Postop management as per Ortho WBAT with walker. OOB to chair. Continue pain control. Dressing changed 03/04/22, will replace with Silverlon prior to d/c. Total hip precautions 8 weeks. DVT prophylaxis: TEDs 3 weeks, foot pumps while in hospital, ASA 81 mg BID for 6 weeks. Follow up w/ orthopedics in 2 weeks. PT/OT (2) Hypertension: Plan: Continue home meds including atenolol, lisinopril Monitor BP Hyponatremia -possibly secondary to HCTZ - will hold and will cont. to monitor Pt seems to have good PO intake (3) DM type 2 (diabetes mellitus, type 2): Plan: Hgb A1c 6.9 09/2021 Hold oral agents and utilize NovoLog per protocol while hospitalized (4) Dyslipidemia: Plan: Continue statin (5) RLS (restless legs syndrome): Plan: Continue carbidopa-levodopa HS (6) GERD (gastroesophageal reflux disease): Plan: Continue H2 jo-ann (7) Depression: Plan: Continue citalopram DVT prophylaxis TEDs, foot pumps while in hospital, ASA Postop DVT prophylaxis as per Ortho Admission and Anticipated Discharge Date Admission Date: March 01, 2022 Subjective Patient seen in follow-up of right femoral fracture, status post surgical repair Patient sitting up in bed, in no acute distress Tolerated procedure well. Patient is alert oriented answering questions appropriately. Denies any fevers chills, nausea vomiting, shortness of breath or chest pain. Did PT earlier today Pain is well controlled a this time. Review of Systems Review of Systems: All systems reviewed & are unremarkable except as noted in Subjective Physical Exam Physical Exam: Constitutional:L WD/WN, vitals as a luke Eyes: PERRL, EOMI, conju nctivae normal, an icteric sclerae ENMT: external ear and n ose normal, oropha rynx normal Respiratory: normal respiratory effort, lungs meliton ar to auscultation Cardiovascular:L Rate/Rhythm: regul ar rate and regula r rhythm Vessels: normal peripheral pulses Extremiti es: no edema Gastrointestinal ( Abdomen): normal bowel sound s, soft, nontender Musculoskeletal: right hip- surgica l dressings applie d Skin: no rashes, warm an d dry Neurologic: PERRL, EOMI, no fa ce palsy, no dysar thria, moves extre mities Psychiatric: A+Ox3, euthymic af fect Results & Data Results & Data ([facility]) Vital Signs (Past 12 Hours) Vital Signs Temp Pulse Resp BP Pulse Ox O2 Del Method 03/05/22 08:40 37.0 C 64 18 134/72 93 Room Air Laboratory Results 03/05/22 03/05/22 03/05/22 Range/Units 12:06 10:13 08:37 WBC (4.8-10.8) K/ul RBC (4.63-6.08) M/uL Hgb (14.0-18.0) g/dl Hct (40.1-51.0) % MCV (80.0-100.0) fL MCH (25.0-34.0) pg MCHC (32.0-36.0) g/dL RDW Std Deviation (36.4-46.3) fL RDW Coeff of Herb (11.5-14.5) % Plt Count (130-400) K/uL MPV (9.4-12.4) fL Sodium (136-145) mmol/L Potassium (3.5-5.1) mmol/L Chloride (98-107) mmol/L Carbon Dioxide (21-32) mmol/L Anion Gap (3-11) BUN (6-23) mg/dl Creatinine (0.6-1.4) mg/dl Est Cr Clr Drug Dosing ml/min Est GFR ( Amer) ml/min Est GFR (Non-Af Amer) ml/min BUN/Creatinine Ratio (10-20) Glucose (70-99(Fasting)) mg/dl POC Glucose 183 H 176 H (70-99) mg/dl Calcium (8.5-10.1) mg/dl Phosphorus (2.5-4.9) mg/dl Magnesium (1.7-2.4) mg/dl Procalcitonin 0.16 (0-0.5) ng/ml 03/05/22 03/05/22 03/04/22 Range/Units 07:58 07:58 20:52 WBC 7.17 (4.8-10.8) K/ul RBC 3.24 L (4.63-6.08) M/uL Hgb 9.0 L (14.0-18.0) g/dl Hct 26.4 L (40.1-51.0) % MCV 81.5 (80.0-100.0) fL MCH 27.8 (25.0-34.0) pg MCHC 34.1 (32.0-36.0) g/dL RDW Std Deviation 39.2 (36.4-46.3) fL RDW Coeff of Herb 13.2 (11.5-14.5) % Plt Count 188 (130-400) K/uL MPV 9.6 (9.4-12.4) fL Sodium 129 L (136-145) mmol/L Potassium 3.9 (3.5-5.1) mmol/L Chloride 92 L (98-107) mmol/L Carbon Dioxide 32 (21-32) mmol/L Anion Gap 5 (3-11) BUN 18 (6-23) mg/dl Creatinine 0.88 (0.6-1.4) mg/dl Est Cr Clr Drug Dosing 91.4 ml/min Est GFR ( Amer) 96.0 ml/min Est GFR (Non-Af Amer) 82.9 ml/min BUN/Creatinine Ratio 20.5 H (10-20) Glucose 156 H (70-99(Fasting)) mg/dl POC Glucose 206 H (70-99) mg/dl Calcium 8.4 L (8.5-10.1) mg/dl Phosphorus 3.2 (2.5-4.9) mg/dl Magnesium 2.0 (1.7-2.4) mg/dl Procalcitonin (0-0.5) ng/ml 03/04/22 Range/Units 17:11 WBC (4.8-10.8) K/ul RBC (4.63-6.08) M/uL Hgb (14.0-18.0) g/dl Hct (40.1-51.0) % MCV (80.0-100.0) fL MCH (25.0-34.0) pg MCHC (32.0-36.0) g/dL RDW Std Deviation (36.4-46.3) fL RDW Coeff of Herb (11.5-14.5) % Plt Count (130-400) K/uL MPV (9.4-12.4) fL Sodium (136-145) mmol/L Potassium (3.5-5.1) mmol/L Chloride (98-107) mmol/L Carbon Dioxide (21-32) mmol/L Anion Gap (3-11) BUN (6-23) mg/dl Creatinine (0.6-1.4) mg/dl Est Cr Clr Drug Dosing ml/min Est GFR ( Amer) ml/min Est GFR (Non-Af Amer) ml/min BUN/Creatinine Ratio (10-20) Glucose (70-99(Fasting)) mg/dl POC Glucose 165 H (70-99) mg/dl Calcium (8.5-10.1) mg/dl Phosphorus (2.5-4.9) mg/dl Magnesium (1.7-2.4) mg/dl Procalcitonin (0-0.5) ng/ml Medications Administered Current Inpatient Medications Acetaminophen (Acetaminophen 500 Mg Tab) 1,000 mg PO Q8H [facility] Stop: 03/31/22 21:21 Last Admin: 03/05/22 13:02 Dose: 1,000 mg Aspirin (Aspirin 81 Mg Ectab) 81 mg PO BID [facility] Stop: 04/02/22 08:59 Last Admin: 03/05/22 09:28 Dose: 81 mg Atenolol (Atenolol 50 Mg Tablet) 50 mg PO BID [facility] Stop: 03/31/22 21:21 Last Admin: 03/05/22 09:28 Dose: 50 mg Bisacodyl (Bisacodyl 10 Mg Supp) 10 mg [place] DAILY PRN PRN Reason: Constipation Stop: 03/31/22 21:21 Carbidopa/Levodopa (Carbidopa/Levodopa 25-250 1 Ea Tab) 1 tab PO HS [facility] Stop: 03/31/22 21:21 Last Admin: 03/04/22 20:16 Dose: 1 tab Citalopram Hydrobromide (Citalopram 20 Mg Tab) 20 mg PO DAILY [facility] Stop: 04/01/22 08:59 Last Admin: 03/05/22 09:28 Dose: 20 mg Dextrose (Dextrose 50% 50 Ml Syringe) 25 - 50 ml IV UD PRN; Protocol PRN Reason: Hypoglycemia Protocol Stop: 03/31/22 21:21 Ergocalciferol (Ergocalciferol 50,000 Units 1250 Mcg Cap) 50,000 units PO Sa@0900 [facility] Stop: 04/02/22 10:14 Last Admin: 03/03/22 11:39 Dose: 50,000 units Famotidine (Famotidine 40 Mg Tablet) 40 mg PO DAILY [facility] Stop: 04/01/22 08:59 Last Admin: 03/05/22 09:28 Dose: 40 mg Glucagon (Glucagon For Inj 1 Mg Vial) 1 mg SQ UD PRN; Protocol PRN Reason: Hypoglycemia Protocol Stop: 03/31/22 21:21 Glucose (Glucose 40% Gel 15 Gm Tube) 15 - 30 gm PO UD PRN; Protocol PRN Reason: Hypoglycemia Protocol Stop: 03/31/22 21:21 Glucose (Glucose 10 Tab/Tube) 4 - 8 tab PO UD PRN; Protocol PRN Reason: Hypoglycemia Treatment Stop: 03/31/22 21:21 Hydrochlorothiazide (Hydrochlorothiazide 25 Mg Tab) 25 mg PO DAILY [facility] Stop: 04/01/22 08:59 Last Admin: 03/04/22 09:04 Dose: 25 mg Insulin Aspart (Insulin Aspart Per Unit) 0 units SC ACHS [facility] Stop: 04/01/22 20:59 Last Admin: 03/05/22 13:01 Dose: 6 units Lisinopril (Lisinopril 10 Mg Tab) 10 mg PO DAILY [facility] Stop: 04/01/22 08:59 Last Admin: 03/05/22 09:28 Dose: 10 mg Magnesium Hydroxide (Magnesium Hydroxide Susp 30 Ml Udc) 30 ml PO DAILY PRN PRN Reason: Constipation Stop: 03/31/22 21:21 Last Admin: 03/04/22 15:59 Dose: 30 ml Miscellaneous (Carbohydrates For Hypoglycemia ) 15 - 30 gm PO UD PRN PRN Reason: Hypoglycemia Protocol Stop: 03/31/22 21:21 Morphine Sulfate (Morphine Sulfate 4 Mg/Ml 1 Ml Carp\Vial) 4 mg IV Q4H PRN PRN Reason: Pain (7,8,9,10) Stop: 03/15/22 21:21 Last Admin: 03/05/22 04:20 Dose: 4 mg Naloxone HCl (Naloxone Hcl 0.4 Mg/1 Ml Vial/Carp) 0.1 mg IV UD PRN PRN Reason: Opiate Overdose Stop: 03/31/22 21:21 Ondansetron HCl (Ondansetron Inj 2 Mg/Ml 2 Ml Vial) 4 mg IV Q6H PRN PRN Reason: Nausea And Vomiting Stop: 03/31/22 21:21 Oxycodone HCl (Oxycodone Hcl Ir 5 Mg Tab (Immediate Release)) 5 mg PO Q6H PRN PRN Reason: MODERATE Pain (4,5,6) & Pre PT Stop: 03/15/22 21:21 Last Admin: 03/04/22 20:26 Dose: 5 mg Senna/Docusate Sodium (Docusate Sodium/Senna 50/8.6mg Tab) 2 tab PO HS [facility] Stop: 03/31/22 21:21 Last Admin: 03/04/22 20:27 Dose: 2 tab Simvastatin (Simvastatin 20 Mg Tab) 20 mg PO PM [facility] Stop: 03/31/22 21:21 Last Admin: 03/04/22 20:14 Dose: 20 mg Tamsulosin HCl (Tamsulosin Hcl 0.4 Mg Cap) 0.4 mg PO QAM PRN PRN Reason: UNABLE to void Stop: 04/01/22 17:23
[2022-03-05] MEDS: SIMVASTATIN 20 MG TAB PO SCH (20:15)
[2022-03-05] MEDS: CARBIDOPA/LEVODOPA 25-250 1 EA TAB PO SCH (20:15)
[2022-03-05] MEDS: DOCUSATE SODIUM/SENNA 50/8.6MG TAB PO SCH (20:53)
[2022-03-06 00:30] LABS: Appearance Urine Clear (Clear); Bilirubin Urine Negative (Negative); Blood Urine Negative (Negative); Color Urine Yellow; Glucose Urine UA Negative (Negative); Ketones Urine Negative (Negative); Leukocyte Esterase Urine Negative (Negative); Nitrite Urine Negative (Negative); Protein Urine Negative (Negative); Specific Gravity Urine 1.011 (1.000-1.030); Urobilinogen Urine Negative (Negative); pH Urine 6.5 (4.5-7.5)
[2022-03-06] MEDS: ACETAMINOPHEN 500 MG TAB PO SCH ×3 (06:17→20:43)
[2022-03-06] MEDS: oxyCODONE HCL IR 5 MG TAB (IMMEDIATE RELEASE) PO PRN ×2 (08:30→20:42)
[2022-03-06] MEDS: CITALOPRAM 20 MG TAB PO SCH (08:31)
[2022-03-06] MEDS: ASPIRIN 81 MG ECTAB PO SCH ×2 (08:31→20:42)
[2022-03-06] MEDS: lisinopril 10 MG TAB PO SCH (08:32)
[2022-03-06] MEDS: FAMOTIDINE 40 MG TABLET PO SCH (08:32)
[2022-03-06] MEDS: ATENOLOL 50 MG TABLET PO SCH ×2 (08:33→20:42)
[2022-03-06 09:05] LABS: Hematocrit (blood only) 26.8 % (40.1-51.0); Hemoglobin 8.9 g/dl (14.0-18.0); Mean Corpuscular Hemoglobin 27.5 pg (25.0-34.0); Mean Corpuscular Hgb Conc 33.2 g/dL (32.0-36.0); Mean Corpuscular Volume 82.7 fL (80.0-100.0); Mean Platelet Volume 9.3 fL (9.4-12.4); Platelet Count 217 K/uL (130-400); RDW Coefficient of Variation 13.3 % (11.5-14.5); RDW Standard Deviation 40.5 fL (36.4-46.3); Red Blood Count 3.24 M/uL (4.63-6.08); White Blood Count 5.94 K/ul (4.8-10.8)
[2022-03-06] MEDS: INSULIN ASPART PER UNIT SC SCH ×4 (09:07→20:47)
[2022-03-06 09:08] LABS: BUN Creatinine Ratio 21.4 (10-20); Calcium 8.4 mg/dl (8.5-10.1); Creatinine Clr Calc Pharmacy 95.8 ml/min; Est GFR (African American) 97.9 ml/min; Est GFR (Non-African American) 84.5 ml/min; Magnesium 2.2 mg/dl (1.7-2.4); Phosphorus 3.6 mg/dl (2.5-4.9); Potassium 3.8 mmol/L (3.5-5.1)
--- NOTE | 2022-03-06 09:36 | Hospitalist Progress Note ---
Date of Service March 06, 2022 Assessment & Plan (1) Fracture of femoral neck, right: Plan: Patient presenting from home for evaluation after a mechanical fall and Right hip pain X-ray shows right femoral neck fracture Orthopedics consulted Pt now s/p surgical repair - R hip calderon-arthroplasty,(03/02) w/ Dr. Salmeron Tolerated procedure well Postop management as per Ortho WBAT with walker. OOB to chair. Continue pain control. Dressing changed 03/04/22, will replace with Silverlon prior to d/c. Total hip precautions 8 weeks. DVT prophylaxis: TEDs 3 weeks, foot pumps while in hospital, ASA 81 mg BID for 6 weeks. Follow up w/ orthopedics in 2 weeks. PT/OT (2) Hypertension: Plan: Continue home meds including atenolol, lisinopril Monitor BP If BP not controlled, can increase lisinopril Hyponatremia -possibly secondary to HCTZ - will hold and will cont. to monitor Pt seems to have good PO intake (3) DM type 2 (diabetes mellitus, type 2): Plan: Hgb A1c 6.9 09/2021 Hold oral agents and utilize NovoLog per protocol while hospitalized (4) Dyslipidemia: Plan: Continue statin (5) RLS (restless legs syndrome): Plan: Continue carbidopa-levodopa HS (6) GERD (gastroesophageal reflux disease): Plan: Continue H2 jo-ann (7) Depression: Plan: Continue citalopram DVT prophylaxis TEDs, foot pumps while in hospital, ASA Postop DVT prophylaxis as per Ortho Admission and Anticipated Discharge Date Admission Date: March 01, 2022 Subjective Patient seen in follow-up of right femoral fracture, status post surgical repair Patient laying in bed, in no acute distress Patient is alert oriented answering questions appropriately. Denies any fevers chills, nausea vomiting, shortness of breath or chest pain. Pain is well controlled at this time. Review of Systems Review of Systems: All systems reviewed & are unremarkable except as noted in Subjective Physical Exam Physical Exam: Constitutional:L WD/WN, vitals as a luke Eyes: PERRL, EOMI, conju nctivae normal, an icteric sclerae ENMT: external ear and n ose normal, oropha rynx normal Respiratory: normal respiratory effort, lungs meliton ar to auscultation Cardiovascular:L Rate/Rhythm: regul ar rate and regula r rhythm Vessels: normal peripheral pulses Extremiti es: no edema Gastrointestinal ( Abdomen): normal bowel sound s, soft, nontender Musculoskeletal: right hip- surgica l dressings applie d Skin: no rashes, warm an d dry Neurologic: PERRL, EOMI, no fa ce palsy, no dysar thria, moves extre mities Psychiatric: A+Ox3, euthymic af fect Results & Data Results & Data ([facility]) Vital Signs (Past 12 Hours) Vital Signs Temp Pulse Resp BP BP Pulse Ox O2 Del Method 03/06/22 08:36 158/78 H 03/06/22 08:32 36.7 C 62 18 182/72 H 93 Room Air 03/05/22 21:59 37.0 C 77 18 145/78 H 96 Room Air Laboratory Results 03/06/22 03/06/22 03/06/22 Range/Units 08:27 08:27 08:15 WBC 5.94 (4.8-10.8) K/ul RBC 3.24 L (4.63-6.08) M/uL Hgb 8.9 L (14.0-18.0) g/dl Hct 26.8 L (40.1-51.0) % MCV 82.7 (80.0-100.0) fL MCH 27.5 (25.0-34.0) pg MCHC 33.2 (32.0-36.0) g/dL RDW Std Deviation 40.5 (36.4-46.3) fL RDW Coeff of Herb 13.3 (11.5-14.5) % Plt Count 217 (130-400) K/uL MPV 9.3 L (9.4-12.4) fL Sodium 130 L (136-145) mmol/L Potassium 3.8 (3.5-5.1) mmol/L Chloride 93 L (98-107) mmol/L Carbon Dioxide 32 (21-32) mmol/L Anion Gap 5 (3-11) BUN 18 (6-23) mg/dl Creatinine 0.84 (0.6-1.4) mg/dl Est Cr Clr Drug Dosing 95.8 ml/min Est GFR ( Amer) 97.9 ml/min Est GFR (Non-Af Amer) 84.5 ml/min BUN/Creatinine Ratio 21.4 H (10-20) Glucose 158 H (70-99(Fasting)) mg/dl POC Glucose 165 H (70-99) mg/dl Calcium 8.4 L (8.5-10.1) mg/dl Phosphorus 3.6 (2.5-4.9) mg/dl Magnesium 2.2 (1.7-2.4) mg/dl Procalcitonin (0-0.5) ng/ml Urine Color Urine Appearance (Clear) Urine pH (4.5-7.5) Ur Specific [place] (1.000-1.030) Urine Protein (Negative) Urine Glucose (UA) (Negative) Urine Ketones (Negative) Urine Blood (Negative) Urine Nitrite (Negative) Urine Bilirubin (Negative) Urine Urobilinogen (Negative) Ur Leukocyte Esterase (Negative) 03/06/22 03/05/22 03/05/22 Range/Units 00:02 21:32 17:06 WBC (4.8-10.8) K/ul RBC (4.63-6.08) M/uL Hgb (14.0-18.0) g/dl Hct (40.1-51.0) % MCV (80.0-100.0) fL MCH (25.0-34.0) pg MCHC (32.0-36.0) g/dL RDW Std Deviation (36.4-46.3) fL RDW Coeff of Herb (11.5-14.5) % Plt Count (130-400) K/uL MPV (9.4-12.4) fL Sodium (136-145) mmol/L Potassium (3.5-5.1) mmol/L Chloride (98-107) mmol/L Carbon Dioxide (21-32) mmol/L Anion Gap (3-11) BUN (6-23) mg/dl Creatinine (0.6-1.4) mg/dl Est Cr Clr Drug Dosing ml/min Est GFR ( Amer) ml/min Est GFR (Non-Af Amer) ml/min BUN/Creatinine Ratio (10-20) Glucose (70-99(Fasting)) mg/dl POC Glucose 197 H 134 H (70-99) mg/dl Calcium (8.5-10.1) mg/dl Phosphorus (2.5-4.9) mg/dl Magnesium (1.7-2.4) mg/dl Procalcitonin (0-0.5) ng/ml Urine Color Yellow Urine Appearance Clear (Clear) Urine pH 6.5 (4.5-7.5) Ur Specific [place] 1.011 (1.000-1.030) Urine Protein Negative (Negative) Urine Glucose (UA) Negative (Negative) Urine Ketones Negative (Negative) Urine Blood Negative (Negative) Urine Nitrite Negative (Negative) Urine Bilirubin Negative (Negative) Urine Urobilinogen Negative (Negative) Ur Leukocyte Esterase Negative (Negative) 03/05/22 03/05/22 Range/Units 12:06 10:13 WBC (4.8-10.8) K/ul RBC (4.63-6.08) M/uL Hgb (14.0-18.0) g/dl Hct (40.1-51.0) % MCV (80.0-100.0) fL MCH (25.0-34.0) pg MCHC (32.0-36.0) g/dL RDW Std Deviation (36.4-46.3) fL RDW Coeff of Herb (11.5-14.5) % Plt Count (130-400) K/uL MPV (9.4-12.4) fL Sodium (136-145) mmol/L Potassium (3.5-5.1) mmol/L Chloride (98-107) mmol/L Carbon Dioxide (21-32) mmol/L Anion Gap (3-11) BUN (6-23) mg/dl Creatinine (0.6-1.4) mg/dl Est Cr Clr Drug Dosing ml/min Est GFR ( Amer) ml/min Est GFR (Non-Af Amer) ml/min BUN/Creatinine Ratio (10-20) Glucose (70-99(Fasting)) mg/dl POC Glucose 183 H (70-99) mg/dl Calcium (8.5-10.1) mg/dl Phosphorus (2.5-4.9) mg/dl Magnesium (1.7-2.4) mg/dl Procalcitonin 0.16 (0-0.5) ng/ml Urine Color Urine Appearance (Clear) Urine pH (4.5-7.5) Ur Specific [place] (1.000-1.030) Urine Protein (Negative) Urine Glucose (UA) (Negative) Urine Ketones (Negative) Urine Blood (Negative) Urine Nitrite (Negative) Urine Bilirubin (Negative) Urine Urobilinogen (Negative) Ur Leukocyte Esterase (Negative) Medications Administered Current Inpatient Medications Acetaminophen (Acetaminophen 500 Mg Tab) 1,000 mg PO Q8H [facility] Stop: 03/31/22 21:21 Last Admin: 03/06/22 06:17 Dose: 1,000 mg Aspirin (Aspirin 81 Mg Ectab) 81 mg PO BID [facility] Stop: 04/02/22 08:59 Last Admin: 03/06/22 08:31 Dose: 81 mg Atenolol (Atenolol 50 Mg Tablet) 50 mg PO BID [facility] Stop: 03/31/22 21:21 Last Admin: 03/06/22 08:33 Dose: 50 mg Bisacodyl (Bisacodyl 10 Mg Supp) 10 mg [place] DAILY PRN PRN Reason: Constipation Stop: 03/31/22 21:21 Carbidopa/Levodopa (Carbidopa/Levodopa 25-250 1 Ea Tab) 1 tab PO HS [facility] Stop: 03/31/22 21:21 Last Admin: 03/05/22 20:15 Dose: 1 tab Citalopram Hydrobromide (Citalopram 20 Mg Tab) 20 mg PO DAILY [facility] Stop: 04/01/22 08:59 Last Admin: 03/06/22 08:31 Dose: 20 mg Dextrose (Dextrose 50% 50 Ml Syringe) 25 - 50 ml IV UD PRN; Protocol PRN Reason: Hypoglycemia Protocol Stop: 03/31/22 21:21 Ergocalciferol (Ergocalciferol 50,000 Units 1250 Mcg Cap) 50,000 units PO Sa@0900 [facility] Stop: 04/02/22 10:14 Last Admin: 03/03/22 11:39 Dose: 50,000 units Famotidine (Famotidine 40 Mg Tablet) 40 mg PO DAILY [facility] Stop: 04/01/22 08:59 Last Admin: 03/06/22 08:32 Dose: 40 mg Glucagon (Glucagon For Inj 1 Mg Vial) 1 mg SQ UD PRN; Protocol PRN Reason: Hypoglycemia Protocol Stop: 03/31/22 21:21 Glucose (Glucose 40% Gel 15 Gm Tube) 15 - 30 gm PO UD PRN; Protocol PRN Reason: Hypoglycemia Protocol Stop: 03/31/22 21:21 Glucose (Glucose 10 Tab/Tube) 4 - 8 tab PO UD PRN; Protocol PRN Reason: Hypoglycemia Treatment Stop: 03/31/22 21:21 Hydrochlorothiazide (Hydrochlorothiazide 25 Mg Tab) 25 mg PO DAILY [facility] Stop: 04/01/22 08:59 Last Admin: 03/04/22 09:04 Dose: 25 mg Insulin Aspart (Insulin Aspart Per Unit) 0 units SC ACHS [facility] Stop: 04/01/22 20:59 Last Admin: 03/06/22 09:07 Dose: 2 units Lisinopril (Lisinopril 10 Mg Tab) 10 mg PO DAILY [facility] Stop: 04/01/22 08:59 Last Admin: 03/06/22 08:32 Dose: 10 mg Magnesium Hydroxide (Magnesium Hydroxide Susp 30 Ml Udc) 30 ml PO DAILY PRN PRN Reason: Constipation Stop: 03/31/22 21:21 Last Admin: 03/04/22 15:59 Dose: 30 ml Miscellaneous (Carbohydrates For Hypoglycemia ) 15 - 30 gm PO UD PRN PRN Reason: Hypoglycemia Protocol Stop: 03/31/22 21:21 Morphine Sulfate (Morphine Sulfate 4 Mg/Ml 1 Ml Carp\Vial) 4 mg IV Q4H PRN PRN Reason: Pain (7,8,9,10) Stop: 03/15/22 21:21 Last Admin: 03/05/22 20:18 Dose: 4 mg Naloxone HCl (Naloxone Hcl 0.4 Mg/1 Ml Vial/Carp) 0.1 mg IV UD PRN PRN Reason: Opiate Overdose Stop: 03/31/22 21:21 Ondansetron HCl (Ondansetron Inj 2 Mg/Ml 2 Ml Vial) 4 mg IV Q6H PRN PRN Reason: Nausea And Vomiting Stop: 03/31/22 21:21 Oxycodone HCl (Oxycodone Hcl Ir 5 Mg Tab (Immediate Release)) 5 mg PO Q6H PRN PRN Reason: MODERATE Pain (4,5,6) & Pre PT Stop: 03/15/22 21:21 Last Admin: 03/06/22 08:30 Dose: 5 mg Senna/Docusate Sodium (Docusate Sodium/Senna 50/8.6mg Tab) 2 tab PO HS [facility] Stop: 03/31/22 21:21 Last Admin: 03/05/22 20:53 Dose: Not Given Simvastatin (Simvastatin 20 Mg Tab) 20 mg PO PM [facility] Stop: 03/31/22 21:21 Last Admin: 03/05/22 20:15 Dose: 20 mg Tamsulosin HCl (Tamsulosin Hcl 0.4 Mg Cap) 0.4 mg PO QAM PRN PRN Reason: UNABLE to void Stop: 04/01/22 17:23
--- NOTE | 2022-03-06 11:29 | Orthopedic Progress Note ---
Date of Service March 06, 2022 Assessment & Plan (1) Fracture of femoral neck, right: Plan: POD #4 s/p R hip calderon-arthroplasty, doing as well as expected. Resume diabetic diet. WBAT with walker. OOB to chair. Continue pain control. Dressing is intact nonsoiled, will replace with Silverlon prior to d/c. Silverlon dressing in patient's chart. Total hip precautions 8 weeks. DVT prophylaxis: TEDs 3 weeks, foot pumps while in hospital, ASA 81 mg BID for 6 weeks. PT/OT. D/C to rehab, pending placement, case management following Pt requesting shower chair, he thinks he has a walker at home will verify and update if he needs one Continue care per primary service. He will f/u in the office for zipline removal 2 weeks. Admission and Anticipated Discharge Date Admission Date: March 01, 2022 Subjective Pt is POD #4 s/p a right calderon arthroplasty hip. He was seen this am sitting up in bedside chair. He is alert and oriented x3 and in good spirits. He states he just finished with PT walking on the floor. He states he has mild pain that is 4/10 at this time. He denies any calf pain, fever, chills, CP or SOB. He offers no concerns. Review of Systems Review of Systems: Please refer to H&P Physical Exam Physical Exam: General: Pt is alert &oriented x3 Integumentary and Musculoskeletal: Dressing in place. Neg for any drainage or soling. Neg for edema in the RLE. Tolerated hip ROM in all planes. He is able to actively DF and PF ankle. Calf is soft and nontender, Neg Jyoti sign RLE is NVI Results & Data ([facility]) Vital Signs (Past 12 Hours) Vital Signs Temp Pulse Resp BP BP Pulse Ox O2 Del Method 03/06/22 08:36 158/78 H 03/06/22 08:32 36.7 C 62 18 182/72 H 93 Room Air
[2022-03-06] MEDS: MoRPHine SULFATE 4 MG/ML 1 ML CARP\\VIAL IV PRN (12:41)
[2022-03-06] MEDS: DOCUSATE SODIUM/SENNA 50/8.6MG TAB PO SCH (20:41)
[2022-03-06] MEDS: SIMVASTATIN 20 MG TAB PO SCH (20:42)
[2022-03-06] MEDS: CARBIDOPA/LEVODOPA 25-250 1 EA TAB PO SCH (20:43)
[2022-03-07] MEDS: ACETAMINOPHEN 500 MG TAB PO SCH ×3 (06:10→21:08)
[2022-03-07 06:56] LABS: Basophils # (auto) 0.02 K/uL (0-0.2); Basophils % (auto) 0.3 %; Eosinophils # (auto) 0.66 K/uL (0-0.50); Eosinophils % (auto) 10.4 %; Hematocrit (blood only) 25.7 % (40.1-51.0); Hemoglobin 8.6 g/dl (14.0-18.0); Immature Granulocytes # (auto) 0.08 K/uL (0.00-0.02); Immature Granulocytes % (auto) 1.3 %; Lymphocytes # (auto) 1.08 K/uL (1.2-3.4); Mean Corpuscular Hemoglobin 27.7 pg (25.0-34.0); Mean Corpuscular Hgb Conc 33.5 g/dL (32.0-36.0); Mean Corpuscular Volume 82.6 fL (80.0-100.0); Mean Platelet Volume 9.1 fL (9.4-12.4); Monocytes # (auto) 0.82 K/uL (0.24-0.82); Monocytes % (auto) 12.9 %; Neutrophils # (auto) 3.69 K/uL (1.4-6.5); Neutrophils % (auto) 58.1 %; Platelet Count 228 K/uL (130-400); RDW Coefficient of Variation 13.4 % (11.5-14.5); RDW Standard Deviation 40.6 fL (36.4-46.3); Red Blood Count 3.11 M/uL (4.63-6.08); White Blood Count 6.35 K/ul (4.8-10.8)
[2022-03-07] MEDS: oxyCODONE HCL IR 5 MG TAB (IMMEDIATE RELEASE) PO PRN ×2 (08:08→14:06)
[2022-03-07] MEDS: lisinopril 10 MG TAB PO SCH (08:09)
[2022-03-07] MEDS: ASPIRIN 81 MG ECTAB PO SCH ×2 (08:09→21:05)
[2022-03-07] MEDS: ATENOLOL 50 MG TABLET PO SCH ×2 (08:09→21:09)
[2022-03-07] MEDS: CITALOPRAM 20 MG TAB PO SCH (08:09)
[2022-03-07] MEDS: FAMOTIDINE 40 MG TABLET PO SCH (08:10)
[2022-03-07] MEDS: INSULIN ASPART PER UNIT SC SCH ×4 (09:59→21:13)
--- NOTE | 2022-03-07 13:43 | Orthopedic Progress Note ---
Date of Service March 07, 2022 Assessment & Plan (1) Fracture of femoral neck, right: Plan: POD #5 s/p R hip calderon-arthroplasty, doing as well as expected. Resume diabetic diet. WBAT with walker. OOB to chair. Continue pain control. Dressing was changed to a Silverlon dressing Total hip precautions 8 weeks. DVT prophylaxis: TEDs 3 weeks, foot pumps while in hospital, ASA 81 mg BID for 6 weeks. PT/OT. D/C to rehab, pending placement, case management following Continue care per primary service. He will f/u in the office for zipline removal 2 weeks. Present on Admission?: Yes Admission and Anticipated Discharge Date Admission Date: March 01, 2022 Subjective Patient's 76-year-old male who is postop day 5 status post a right hemiarthroplasty done by Dr. Salmeron. He was seen bedside this afternoon. He is sitting upright in bed just finished lunch. He states he has pain in the right hip that is 6/10. He denies any drainage or redness in the leg. He does state he is participating in therapy there to come back this afternoon since he was eating lunch when they came. He states Tylenol is managing his pain at this time. He denies any calf pain. He denies any chest pain or shortness of breath. He offers no concerns at this time. Review of Systems Review of Systems: Please refer to H&P Physical Exam Physical Exam: General: Pt is alert &oriented x3 Integumentary and Musculoskeletal: Dressing in place. Neg for any drainage or soling.Incision is well approximated with Zipline in place. Negative for any active drainage or bleeding. Negative for erythema surrounding incision. Applied Silverlon dressing to the incision. Neg for edema in the RLE. Tolerated hip ROM in all planes. He is able to actively DF and PF ankle. Calf is soft and nontender, Neg Jyoti sign RLE is NVI Results & Data ([facility]) Vital Signs (Past 12 Hours) Vital Signs Temp Pulse Resp BP Pulse Ox O2 Del Method 03/07/22 07:45 37 C 65 16 156/71 H 94 Room Air
--- NOTE | 2022-03-07 15:18 | Hospitalist Progress Note ---
Date of Service March 07, 2022 Assessment & Plan (1) Fracture of femoral neck, right: Plan: Patient presenting from home for evaluation after a mechanical fall and Right hip pain X-ray showed right femoral neck fracture Orthopedics consulted Pt now s/p surgical repair - R hip calderon-arthroplasty,(03/02) w/ Dr. Salmeron Tolerated procedure well Postop management as per Ortho WBAT with walker. OOB to chair. Continue pain control. Dressing changed 03/04/22, will replace with Silverlon prior to d/c. Total hip precautions 8 weeks. DVT prophylaxis: TEDs 3 weeks, foot pumps while in hospital, ASA 81 mg BID for 6 weeks. Follow up w/ orthopedics in 2 weeks. PT/OT (2) Hypertension: Plan: Continue home meds including atenolol, lisinopril Monitor BP If BP not controlled, can increase lisinopril Hyponatremia -possibly secondary to HCTZ - will hold and will cont. to monitor Pt seems to have good PO intake (3) DM type 2 (diabetes mellitus, type 2): Plan: Hgb A1c 6.9 09/2021 Hold oral agents and utilize NovoLog per protocol while hospitalized (4) Dyslipidemia: Plan: Continue statin (5) RLS (restless legs syndrome): Plan: Continue carbidopa-levodopa HS (6) GERD (gastroesophageal reflux disease): Plan: Continue H2 jo-ann (7) Depression: Plan: Continue citalopram DVT prophylaxis TEDs, foot pumps while in hospital, ASA Postop DVT prophylaxis as per Ortho Admission and Anticipated Discharge Date Admission Date: March 01, 2022 Subjective Pt seen and examined at bedside as a follow up of Rt femoral neck fracture. Pt was lying in bed, NAD, on RA, denies any new acute events overnight, reports eating ok and moving bowels ok, reports pain at right hip under control. Offers no other complaints. Physical Exam Physical Exam: GENERAL: Alert and oriented x3. NAD, on RA. HEENT: No pallor, no icterus. Pupils equal, round and reactive to light. Oral mucosa moist. NECK: No JVD, no neck masses. HEART: S1 and S2 heard. Regular rate and rhythm. No murmur, no gallop. RESPIRATORY SYSTEM: Normal AP diameter. No accessory muscle use. No wheezing, no crackles. ABDOMEN: Soft, bowel sounds present, nontender, no distention. CENTRAL NERVOUS SYSTEM: No facial droop. Speech is clear. Obeys simple commands. Moves extremities. EXTREMITIES: No edema, no erythema seen. Rt hip w/ clean dressing w/o soakage. Results & Data Results & Data ([facility]) Vital Signs (Past 12 Hours) Vital Signs Temp Pulse Resp BP Pulse Ox O2 Del Method 03/07/22 14:53 36.5 C 67 15 112/58 L 95 Room Air 03/07/22 07:45 37 C 65 16 156/71 H 94 Room Air
[2022-03-07] MEDS: MoRPHine SULFATE 4 MG/ML 1 ML CARP\\VIAL IV PRN (20:21)
[2022-03-07] MEDS: SIMVASTATIN 20 MG TAB PO SCH (21:08)
[2022-03-07] MEDS: CARBIDOPA/LEVODOPA 25-250 1 EA TAB PO SCH (21:09)
[2022-03-07] MEDS: DOCUSATE SODIUM/SENNA 50/8.6MG TAB PO SCH (21:13)
[2022-03-08] MEDS: ACETAMINOPHEN 500 MG TAB PO SCH ×3 (06:20→20:06)
[2022-03-08] MEDS: oxyCODONE HCL IR 5 MG TAB (IMMEDIATE RELEASE) PO PRN ×3 (06:20→18:09)
[2022-03-08] MEDS: FAMOTIDINE 40 MG TABLET PO SCH (07:28)
[2022-03-08] MEDS: CITALOPRAM 20 MG TAB PO SCH (07:28)
[2022-03-08] MEDS: ASPIRIN 81 MG ECTAB PO SCH ×2 (07:29→20:09)
[2022-03-08] MEDS: lisinopril 10 MG TAB PO SCH (07:29)
[2022-03-08] MEDS: ATENOLOL 50 MG TABLET PO SCH ×2 (07:29→20:15)
[2022-03-08] MEDS: INSULIN ASPART PER UNIT SC SCH ×4 (09:29→20:51)
[2022-03-08 09:49] LABS: Basophils # (auto) 0.04 K/uL (0-0.2); Basophils % (auto) 0.5 %; Eosinophils # (auto) 0.71 K/uL (0-0.50); Eosinophils % (auto) 9.5 %; Hematocrit (blood only) 27.8 % (40.1-51.0); Hemoglobin 9.1 g/dl (14.0-18.0); Immature Granulocytes # (auto) 0.06 K/uL (0.00-0.02); Immature Granulocytes % (auto) 0.8 %; Lymphocytes # (auto) 1.11 K/uL (1.2-3.4); Lymphocytes % (auto) 14.9 %; Mean Corpuscular Hemoglobin 27.7 pg (25.0-34.0); Mean Corpuscular Hgb Conc 32.7 g/dL (32.0-36.0); Mean Corpuscular Volume 84.5 fL (80.0-100.0); Monocytes # (auto) 0.74 K/uL (0.24-0.82); Monocytes % (auto) 9.9 %; Neutrophils # (auto) 4.81 K/uL (1.4-6.5); Neutrophils % (auto) 64.4 %; Platelet Count 289 K/uL (130-400); RDW Coefficient of Variation 13.6 % (11.5-14.5); RDW Standard Deviation 41.8 fL (36.4-46.3); Red Blood Count 3.29 M/uL (4.63-6.08); White Blood Count 7.47 K/ul (4.8-10.8)
[2022-03-08 10:13] LABS: BUN Creatinine Ratio 25.9 (10-20); Calcium 8.8 mg/dl (8.5-10.1); Creatinine Clr Calc Pharmacy 99.3 ml/min; Est GFR (African American) 99.4 ml/min; Est GFR (Non-African American) 85.7 ml/min; Magnesium 2.2 mg/dl (1.7-2.4); Phosphorus 3.5 mg/dl (2.5-4.9)
--- NOTE | 2022-03-08 16:10 | Hospitalist Progress Note ---
Date of Service March 08, 2022 Assessment & Plan (1) Fracture of femoral neck, right: Plan: Patient presenting from home for evaluation after a mechanical fall and Right hip pain X-ray showed right femoral neck fracture Orthopedics consulted Pt now s/p surgical repair - R hip calderon-arthroplasty,(03/02) w/ Dr. Salmeron Tolerated procedure well Postop management as per Ortho WBAT with walker. OOB to chair. Continue pain control. Dressing changed 03/04/22, will replace with Silverlon prior to d/c. Total hip precautions 8 weeks. DVT prophylaxis: TEDs 3 weeks, foot pumps while in hospital, ASA 81 mg BID for 6 weeks. Follow up w/ orthopedics in 2 weeks. PT/OT (2) Hypertension: Plan: Continue home meds including atenolol, lisinopril Monitor BP If BP not controlled, can increase lisinopril Hyponatremia -possibly secondary to HCTZ - will hold and will cont. to monitor Pt seems to have good PO intake (3) DM type 2 (diabetes mellitus, type 2): Plan: Hgb A1c 6.9 09/2021 Hold oral agents and utilize NovoLog per protocol while hospitalized (4) Dyslipidemia: Plan: Continue statin (5) RLS (restless legs syndrome): Plan: Continue carbidopa-levodopa HS (6) GERD (gastroesophageal reflux disease): Plan: Continue H2 jo-ann (7) Depression: Plan: Continue citalopram DVT prophylaxis TEDs, foot pumps while in hospital, ASA Postop DVT prophylaxis as per Ortho Dispo: to SNF, likely [facility]ette. Admission and Anticipated Discharge Date Admission Date: March 01, 2022 Subjective Pt seen and examined at bedside as a follow up of Rt femoral neck fracture. Pt was lying in bed, NAD, on RA, denies any new acute events overnight, reports eating ok and moving bowels ok, reports pain at right hip under control. Offers no other complaints. Physical Exam Physical Exam: GENERAL: Alert and oriented x3. NAD, on RA. HEENT: No pallor, no icterus. Pupils equal, round and reactive to light. Oral mucosa moist. NECK: No JVD, no neck masses. HEART: S1 and S2 heard. Regular rate and rhythm. No murmur, no gallop. RESPIRATORY SYSTEM: Normal AP diameter. No accessory muscle use. No wheezing, no crackles. ABDOMEN: Soft, bowel sounds present, nontender, no distention. CENTRAL NERVOUS SYSTEM: No facial droop. Speech is clear. Obeys simple commands. Moves extremities. EXTREMITIES: No edema, no erythema seen. Rt hip w/ clean dressing w/o soakage. Results & Data Results & Data ([facility]) Vital Signs (Past 12 Hours) Vital Signs Temp Pulse Resp BP Pulse Ox O2 Del Method 03/08/22 08:05 36.8 C 63 18 120/65 95 Room Air
[2022-03-08] MEDS: SIMVASTATIN 20 MG TAB PO SCH (20:06)
[2022-03-08] MEDS: CARBIDOPA/LEVODOPA 25-250 1 EA TAB PO SCH (20:07)
[2022-03-08] MEDS: DOCUSATE SODIUM/SENNA 50/8.6MG TAB PO SCH (20:08)
[2022-03-09] MEDS: MoRPHine SULFATE 4 MG/ML 1 ML CARP\\VIAL IV PRN (03:30)
[2022-03-09] MEDS: ACETAMINOPHEN 500 MG TAB PO SCH ×2 (04:51→12:37)
[2022-03-09] MEDS: oxyCODONE HCL IR 5 MG TAB (IMMEDIATE RELEASE) PO PRN (07:54)
[2022-03-09] MEDS: FAMOTIDINE 40 MG TABLET PO SCH (07:55)
[2022-03-09] MEDS: ASPIRIN 81 MG ECTAB PO SCH (07:55)
[2022-03-09] MEDS: ATENOLOL 50 MG TABLET PO SCH (07:55)
[2022-03-09] MEDS: CITALOPRAM 20 MG TAB PO SCH (07:55)
[2022-03-09] MEDS: lisinopril 10 MG TAB PO SCH (07:55)
[2022-03-09 09:06] LABS: Basophils # (auto) 0.03 K/uL (0-0.2); Basophils % (auto) 0.5 %; Eosinophils # (auto) 0.81 K/uL (0-0.50); Eosinophils % (auto) 13.6 %; Hematocrit (blood only) 26.2 % (40.1-51.0); Hemoglobin 8.6 g/dl (14.0-18.0); Immature Granulocytes # (auto) 0.08 K/uL (0.00-0.02); Immature Granulocytes % (auto) 1.3 %; Lymphocytes # (auto) 1.23 K/uL (1.2-3.4); Lymphocytes % (auto) 20.6 %; Mean Corpuscular Hemoglobin 27.7 pg (25.0-34.0); Mean Corpuscular Hgb Conc 32.8 g/dL (32.0-36.0); Mean Corpuscular Volume 84.2 fL (80.0-100.0); Monocytes # (auto) 0.48 K/uL (0.24-0.82); Neutrophils # (auto) 3.34 K/uL (1.4-6.5); Platelet Count 262 K/uL (130-400); RDW Coefficient of Variation 13.4 % (11.5-14.5); Red Blood Count 3.11 M/uL (4.63-6.08); White Blood Count 5.97 K/ul (4.8-10.8)
[2022-03-09] MEDS: INSULIN ASPART PER UNIT SC SCH (09:20)
[2022-03-09] MEDS ORDERED: lisinopril 10 MG TAB PO ONE (09:45)
--- NOTE | 2022-03-09 12:04 | Discharge Summary ---
Date of Service March 09, 2022 Admission HPI Per Admitting Provider 76-year-old male with PMH DM type II, HTN, GERD, RLS, and other problems listed below who presents to the ED for evaluation after a fall and subsequent right hip pain. Patient reports that he was walking up the stairs into his home when he missed stepped and fell down about 2 stairs onto his right side. Patient reports also striking his head. He denies any associated loss of consciousness or preceding chest pain, shortness of breath, lightheadedness, dizziness. Patient was unable to get up off the ground and EMS was called and brought to the ED for further evaluation. Patient reports he otherwise has been feeling well recently. Patient reports that he is fairly active and was just returning home from [facility] today. Patient states that he can climb a flight of stairs without difficulty. Patient denies any recent episodes of chest pain or shortness of breath. No other recent illnesses, fevers, chills. He denies abdominal pain, nausea, vomiting, diarrhea. No urinary symptoms. In the ED, patient is found to have a right femoral neck fracture. He was moderately hypertensive on presentation however this improved with pain control. Patient received IV Zofran and IV fentanyl. Admission Exam Per Admitting Provider Constitutional: WD/WN, vitals as above Eyes: PERRL, conjunctivae normal, anicteric sclerae ENMT: external ear and nose normal, oropharynx normal Respiratory: normal respiratory effort, lungs clear to auscultation Cardiovascular: Rate/Rhythm: regular rate and regular rhythm Vessels: normal peripheral pulses Extremities: no edema Gastrointestinal (Abdomen): normal bowel sounds, soft, nontender, no hepatosplenomegaly Musculoskeletal: Pain with palpation over right hip, CSM checks intact RLE Skin: no rashes, warm and dry Neurologic: PERRL, EOMI, accommodation nl, no face palsy, no dysarthria Psychiatric: A+Ox3, euthymic affect Principal Diagnosis Fracture of femoral neck, right status post right hip hemiarthroplasty 03/02/[address] Salmeron Hypertension Mild hyponatremia, likely secondary to hydrochlorothiazide Discharge Exam GENERAL: Alert and oriented x3. NAD, on RA. HEENT: No pallor, no icterus. Pupils equal, round and reactive to light. Oral mucosa moist. NECK: No JVD, no neck masses. HEART: S1 and S2 heard. Regular rate and rhythm. No murmur, no gallop. RESPIRATORY SYSTEM: Normal AP diameter. No accessory muscle use. No wheezing, no crackles. ABDOMEN: Soft, bowel sounds present, nontender, no distention. CENTRAL NERVOUS SYSTEM: No facial droop. Speech is clear. Obeys simple commands. Moves extremities. EXTREMITIES: No edema, no erythema seen. Rt hip w/ clean dressing w/o soakage. B/l buttock w/ likely allergic skin reaction, erythematous, non tender no warmth. Discharge Data Allergies Allergy/AdvReac Type Severity Reaction Status Date / Time Penicillins Allergy Unknown unsure Verified 03/01/22 19:10 Consultations 03/01/22 18:24 ED Decision to Admit Stat 03/01/22 21:22 Consult Anesthesiology Routine Consult Orthopedic Surgery Routine Procedures Performed Operation Date: 03/02/22 08:10 Actual Procedures p Right Bipolar Hip Prosthesis Cemented(Right) - Say Salmeron MD Ordered Studies 03/01/22 16:54 CT cervical spine wo con Stat CT head/brain wo con Stat Hospital Course (1) Fracture of femoral neck, right: Patient presenting from home for evaluation after a mechanical fall and Right hip pain X-ray showed right femoral neck fracture Orthopedics consulted Pt now s/p surgical repair - R hip calderon-arthroplasty,(03/02) w/ Dr. Salmeron Tolerated procedure well Postop management as per Ortho WBAT with walker. OOB to chair. Continue pain control. Total hip precautions 8 weeks. DVT prophylaxis: TEDs 3 weeks, foot pumps while in hospital, ASA 81 mg BID for 6 weeks. Follow up w/ orthopedics in 2 weeks. PT/OT (2) Hypertension: Continue home meds including atenolol, lisinopril Monitor BP Lisinopril increased to 20 mg daily, hold HCTZ, f/u pcp for ongoing HTN mx. Low sodium diet. (3) DM type 2 (diabetes mellitus, type 2): Hgb A1c 6.9 09/2021 Hold oral agents and utilize NovoLog per protocol while hospitalized (4) Dyslipidemia: Continue statin (5) RLS (restless legs syndrome): Continue carbidopa-levodopa HS (6) GERD (gastroesophageal reflux disease): Continue H2 jo-ann (7) Depression: Continue citalopram DVT prophylaxis TEDs, foot pumps while in hospital, ASA Postop DVT prophylaxis as per Ortho Patient being discharged to SNF with following instruction at the point of discharge: Follow-up with your primary care physician within a week time and likely you will need blood test CBC/CMP/magnesium level/phosphorus level. Because of your lower sodium level in the blood, your hydrochlorothiazide has been stopped, your lisinopril has been increased to manage your blood pressure, recommend to maintain a blood pressure measurement twice a day and maintain a log to take to primary care physician to help with blood pressure medication adj ustment. Maintain low-sodium diet [<2 g/day] and high-protein diet. Activity as per orthopedic instruction. Follow-up with orthopedics in 1 to 2 weeks upon discharge. You have been instructed to use baby aspirin twice a day for 5 more weeks upon discharge. Then you can switch back to once a day. For your pain, continue with physical therapy, you have been discharged with few days worth of oxycodone for severe pain, you can use [id number] Tylenol for mild pain. If you have ongoing pain, you will need evaluation by your primary care physician or orthopedics for further pain management prescription. For your likely contact dermatitis in bilateral lower buttock, continue with SensiCare three times a day, follow-up with wound care, keep pressure off of buttocks as much as possible. Keep the area clean and dry. Take your medications as prescribed. Home Health Attestation I certify that this patient is under my care and that I, or a physicians industrial hire sales assistant working with me, had a face to-face encounter that meets the home health [id number] encounter requirements with this patient. The encounter with the patient was in whole, or in part, for the following medical condition, which is the primary reason for home health care (list medical condition): I certify that, based on my findings, the following services are medically necessary home health services: My clinical findings support the need for the above services because: Further, I certify that my clinical findings support that this patient is homebound (i.e. absences from home require considerable and taxing effort and are for medical reasons or jewish services or infrequently or of short duration when for other reasons) because: Certification for Home Health Services: Based on the above findings, I certify that this patient is confined to the home and needs intermittent jail care, physical therapy and/or speech therapy or continues to need occupational therapy. The patient is under my care, and I have initiated the establishment of the plan of care. This patient will be followed by a physician who will periodically review the plan of care. Total Time Total Time Spent Total Time Spent (In Minutes): 45 Discharge Plan Discharge Items Patient Disposition: Transfer [facility] Reason For Visit: RIGHT FEMORAL NECK FRACTURE Discharge Diagnosis: Fracture of femoral neck, right status post right hip hemiarthroplasty 03/02/[address] Salmeron Hypertension Mild hyponatremia, likely secondary to hydrochlorothiazide Activity: Per Instructions section Non-emergency contact: Primary Care Provider Call non-emergency contact if: you have any medication questions, your pain is not controlled and your temperature is above 101.5 Follow-up/Referrals: Arin Tay PA-C [Primary Care Provider] - Keyanna Doan PA-C [Physician Tipple Greaser] - 03/26/22 2:30 pm Diet: Carb Consistent or DM2 Addtl Attending Provider Instructions: Follow-up with your primary care physician within a week time and likely you will need blood test CBC/CMP/magnesium level/phosphorus level. Because of your lower sodium level in the blood, your hydrochlorothiazide has been stopped, your lisinopril has been increased to manage your blood pressure, recommend to maintain a blood pressure measurement twice a day and maintain a log to take to primary care physician to help with blood pressure medication adjustment. Maintain low-sodium diet [<2 g/day] and high-protein diet. Activity as per orthopedic instruction. Follow-up with orthopedics in 1 to 2 weeks upon discharge. You have been instructed to use baby aspirin twice a day for 5 more weeks upon discharge. Then you can switch back to once a day. For your pain, continue with physical therapy, you have been discharged with few days worth of oxycodone for severe pain, you can use [id number] Tylenol for mild pain. If you have ongoing pain, you will need evaluation by your primary care physician or orthopedics for further pain management prescription. For your likely contact dermatitis in bilateral lower buttock, continue with SensiCare three times a day, follow-up with wound care, keep pressure off of buttocks as much as possible. Keep the area clean and dry. Take your medications as prescribed. Addtl Production Support Developer Provider Instructions: ORTHOPEDIC DISCHARGE INSTRUCTIONS -Weight bearing as tolerated with walker to assist in ambulation -Posterior hip precautions for 8 weeks: DO NOT flex your hip past 90, DO NOT internally rotate your foot/leg, DO NOT cross your legs -Please do rehab exercises as instructed -Frequently ice, at least 20 minutes 5 times a day. -You may shower on Post op Day 3. Leave Mepilex/Silverlon dressing in tact until follow up appt in 2 weeks. Your dressing is water-resistant, meaning you can shower with it on as long as it is in-tact. Letting some running water run over top of it from the shower is okay. You cannot submerge your incision in water. No baths, hot tubs or swimming pools. Keep dressing clean and dry. If your dressing starts to peel off or gets moisture under it, nursing may reinforce as needed. -DVT prophylaxis: Aspirin 81mg twice a day for 6 weeks, JULIAN compression stockings for 3 weeks -While taking Aspirin, if you start to get upset stomach, we recommend taking over the counter Pepcid, 20mg twice a day as long as you are taking the Aspirin -Pain control: Recommend oxycodone 5mg every 4-6 hours as needed, Tylenol 500- 1000mg every 8 hours -To promote healing, please take 500mg Vitamin C twice a day with meals x 2 weeks and Iron 325 mg twice a day with meals x 2 weeks -While on narcotic pain medication and iron supplement, we recommend you take a stool softener to prevent constipation -Follow up in 2 weeks with [facility] for post op evaluation and Zip-line removal. Please call our office sooner @ [phone] if you have any questions or concerns Pending Studies at Discharge: No Stand-Alone Forms: [facility] Skilled Items Patient informed of condition?: Yes DNR: No Discharge Level of Care: Skilled Communicable Disease: No Discharge Prognosis: Stable Lines: None Urinary Catheter: No Medications and DC Order Prescriptions: New lisinopril 20 mg Tablet 20 mg PO DAILY Qty: 30 0RF oxycodone-acetaminophen [Percocet] 7.5-325 mg tablet 1 tab PO Q8H PRN (Reason: pain (scale score 7-10)) Qty: 15 0RF sennosides-docusate sodium [Senokot-S] 8.6-50 mg Tablet 2 tab PO HS Qty: 30 0RF Continued simvastatin [Zocor] 20 mg Tablet 20 mg PO PM Qty: 0 atenolol [Tenormin] 50 mg Tablet 50 mg PO BID Qty: 0 metformin 500 mg tablet 1,000 mg PO QAM carbidopa-levodopa 25-250 mg tablet 1 tab PO HS Rx Instructions: TAKE ONNE TAB AT BEDTIME FOR RESTLESS LEGS metformin 500 mg tablet 500 mg PO .MARCEL MEAL citalopram 20 mg tablet 20 mg PO DAILY famotidine 40 mg tablet 40 mg PO DAILY Changed aspirin 81 mg Tablet,Delayed Release (Dr/Ec) 81 mg PO BID Qty: 60 0RF Rx Instructions: Use aspirin 81 mg twice a day for 5 more weeks from 03/09/22 Discontinued lisinopril 10 mg tablet 10 mg PO DAILY hydrochlorothiazide 25 mg tablet 25 mg PO DAILY Discharge Orders: Discharge Order (Routine); Ordered 03/09/22 Ordered By: Josh Phillips/Other Patient Handouts: Managing Type 2 Diabetes Admission Data Admit Date/Time: 03/01/22 18:34 Attending Provider: Josh Singh Admit Provider: Aleksandra Basurto Primary Care Provider: Arin Tay Other Providers: Lyman,Care ; Aleksandra Basurto ; Len Burch ; Say Salmeron
[2022-03-10] MEDS ORDERED: lisinopril 20 MG TAB PO SCH (09:00)
== END 2022-03-09 13:08 | DRG 522 ==
LOC: ED 16:34 → SUATTDRO 18:34 → 3N 18:34
DX: Z87.891 Personal history of nicotine dependence; T50.2X5A Adverse effect of carbonic-anhydrase inhibitors, benzothiadiazides and other diuretics, initial encounter; K21.9 Gastro-esophageal reflux disease without esophagitis; I44.0 Atrioventricular block, first degree; W10.8XXA Fall (on) (from) other stairs and steps, initial encounter; Z79.84 Long term (current) use of oral hypoglycemic drugs; G25.81 Restless legs syndrome; E78.5 Hyperlipidemia, unspecified; E87.1 Hypo-osmolality and hyponatremia; Z88.0 Allergy status to penicillin; M80.051A Age-related osteoporosis with current pathological fracture, right femur, initial encounter for fracture; E11.9 Type 2 diabetes mellitus without complications; S09.90XA Unspecified injury of head, initial encounter; F32.A Depression, unspecified; Y92.018 Other place in single-family (private) house as the place of occurrence of the external cause

== ENCOUNTER 2023-08-30 12:04 | Inpatient (IN) ==
--- NOTE | 2023-08-30 12:25 | Emergency Department Note ---
Impression & Plan ST elevation (STEMI) myocardial infarction, Abnormal EKG, Chest pain ED Provider Note NAME: ANGELA MATHIS AGE: 78 SEX: M : 1945 ARRIVES VIA: Walk-In INFORMANT: Patient, ED PROVIDER(S): Juventino Hardwick MD CHIEF COMPLAINT: Chest pain MEDICAL DECISION MAKING: Patient presents due to concern for chest pain. Initially did receive an EKG while the patient was in triage did not show any overt findings but given the patient's symptoms I did speak with charge nurse in order to facilitate have the patient placed in room. IV was established blood work obtained patient was ordered aspirin nitro. Repeat EKG was obtained in about 30 minutes time which did not show any significant changes from his initial EKG. Patient subsequently had a repeat which I thought showed developing changes. I did initiated a call with the on-call laundry attendant Dr. Balderrama. I did send him photos of the patient's EKGs and did order Brilinta heparin bolus and drip. I subsequently was able to speak with Dr. Balderrama who stated that while he was currently unavailable to come down and see the patient Dr. Valero would evaluate him. I did speak with Dr. Valero at the bedside who did talk to the patient and I reviewed the patient's EKGs and had an echo that was performed. There was concern that the patient did have decreased wall motion of his LAD distribution and thus the patient was taken urgently to the [facility]. I did speak with the on-call hospitalist service Gavi Matamoros PA-C and the patient was admitted by Dr. Geiger. Critical Care: I have personally spent 75 minutes of critical care time in direct management of this patient. This includes bedside care, interpretation of diagnostic studies, and testing, discussion with consultants, patient, and family members, and other require inpatient management activities. This 75 minutes is in excess of all separately billable procedures. Discussion w/ other healthcare providers: None Prior /Outside records reviewed: None Differential diagnosis: Cardiac ischemia, aortic dissection, pulmonary embolism, pneumothorax, pneumonia, pericarditis, myocarditis, GERD, cholecystitis, pancreatitis, musculoskeletal, as well as other pathologies were considered. Diagnostics, as interpreted by me: ECG: Sinus with first-degree AV block, rate of 76, prolonged AK, normal QRS, left axis deviation no ST elevations. Repeat EKG interpreted by me Sinus with first-degree AV block rate of 72, normal intervals, left axis deviation no ST elevations no significant change from comparison EKG Repeat EKG completed at 1331 interpreted by me Sinus with first-degree AV block rate of 79, prolonged AK, left axis deviation, evolving Q waves and possible concavity in the anterior lateral leads. No obvious reciprocal changes at this time. Cardiac monitoring: An order was placed for continuous cardiac monitoring. The monitor shows a rate of 75 with sinus rhythm. Patient was placed on pulse oximetry Medical decision rules: None Imaging studies: I informally interpreted the patient's chest x-ray does not show obvious pneumonia or pneumothorax with formal report to follow. HPI: Patient presents due to concern for chest pain. The patient states that he developed this after getting a table at [employer] although did not eat anything. Patient describes it as central radiating to both shoulders currently an 8 out of 10 describes it as achy. No associated nausea vomiting or diaphoresis. Patient denies any falls or trauma. The patient denies any cough or fever no recent travel and no known sick contacts. The patient did admit that when he walked to the vehicle he did have worsening chest pain. Patient states that he did have some associated shortness of breath at the time of his chest pain but this did not get any worse with exertion or activity. No leg swelling or calf pain no prior history of any heart disease. Patient does follow with Arin Blandon with [facility] MEDICAL HISTORY: See Below PAST SURGICAL HISTORY: See Below SOCIAL HISTORY: See Below HOME MEDICATIONS: See Below ALLERGIES: See Below VITALS: See Below PHYSICAL EXAMINATION: GENERAL: NAD, non-toxic. Wearing glasses. EYE EXAM: Normal conjunctiva. PERRL, no anisocoria and EOM's grossly intact w/o pain. OROPHARYNX: Moist mucus membranes, grossly normal dentition. NECK: Trachea midline, no stridor. LUNGS: Clear to auscultation. Normal chest wall mechanics. HEART: NSR, no MRG. ABDOMEN: Abdomen soft, non-tender, no masses, no rebound or guarding. BACK: No CVA TTP. SKIN: No rashes and no bruising. UPPER EXTREMITIES: Upper extremities are grossly normal. LOWER EXTREMITIES: Grossly normal, no edema. Negative Homans' sign bilaterally. NEURO EXAM: A&O x3, cranial nerves II-XII grossly intact, normal speech, moves all 4 extremities. Past Med/Surg History Problem List (Updated 08/31/23 @ 13:46 by Juventino Hardwick MD) Elevated blood protein Chronic hyponatremia Abnormal EKG (Acute) Chest pain (Acute) Cardiomyopathy ST elevation (STEMI) myocardial infarction (Acute) Encounter for pre-operative examination Fall (Acute) Closed fracture of right hip (Acute) Fracture of femoral neck, right Depression GERD (gastroesophageal reflux disease) RLS (restless legs syndrome) Hypertension Dyslipidemia DM type 2 (diabetes mellitus, type 2) Surgical History No pertinent past surgical history Family History Father Hypertension Social History Smoking Status: Former smoker Tobacco Type: Cigarettes Hx Alcohol Use: No Hx Substance Use: No Preferred Language: Grenadian Communication Ability: Effective Associate Designer Required: No Beliefs That Will Affect Care: None Current Living Situation: Spouse Other Information That Helps Us Care for You: No Feels Safe at Home: Yes Safety Concerns: Feels Safe At This Time Assistive Devices: Glasses Allergies Allergies Allergy/AdvReac Type Severity Reaction Status Date / Time Penicillins Allergy Unknown unsure Verified 03/01/22 19:10 Home Meds Home Medications Medication Instructions Recorded Confirmed simvastatin 20 mg tablet (Zocor) 20 mg PO PM #0 tabs 04/08/15 08/30/23 metformin 500 mg tablet 1,000 mg PO QAM 07/19/19 08/30/23 carbidopa 25 mg-levodopa 250 mg 1 tab PO HS 03/01/22 08/30/23 tablet citalopram 20 mg tablet 20 mg PO DAILY 03/01/22 08/30/23 famotidine 40 mg tablet 40 mg PO DAILY 03/01/22 08/30/23 metformin 500 mg tablet 500 mg PO .MARCEL MEAL 03/01/22 08/30/23 aspirin 81 mg tablet,delayed 81 mg PO DAILY 08/30/23 08/30/23 release gabapentin 300 mg capsule 600 mg PO BID 08/30/23 08/30/23 hydrochlorothiazide 25 mg tablet 25 mg PO DAILY 08/30/23 08/30/23 Previous Rx's Medication Instructions Recorded lisinopril 20 mg tablet 20 mg PO DAILY #30 tabs 03/09/22 Results & Data (ED) Vital Signs Vital Signs - 24 hr 08/30/23 12:05 08/30/23 12:40 08/30/23 12:45 Temperature 36.8 C Temperature Source Temporal Artery Scan Pulse Rate 84 73 Pulse Rhythm Regular Respiratory Rate 14 20 Blood Pressure 181/88 H Blood Pressure Mean 119 Pulse Oximetry 100 96 96 Oxygen Delivery Method Room Air Room Air Room Air Sepsis New/Unexplained Change in Mental Status No Sepsis Action Taken by Nursing No Action Required 08/30/23 12:46 Temperature Temperature Source Pulse Rate 74 Pulse Rhythm Respiratory Rate Blood Pressure Blood Pressure Mean Pulse Oximetry Oxygen Delivery Method Sepsis New/Unexplained Change in Mental Status Sepsis Action Taken by Custodial Medications Current Medication List: was personally reviewed by me Laboratory Data Attestation: I reviewed the patient's lab results. 08/31/23 06:44 08/31/23 06:44 Lab Results 08/30/23 Range/Units 12:17 WBC 8.60 (4.8-10.8) K/ul RBC 4.40 L (4.70-6.10) M/uL Hgb 11.8 L (14.0-18.0) g/dl Hct 36.3 L (42.0-52.0) % MCV 82.5 (80.0-100.0) fL MCH 26.8 (25.0-34.0) pg MCHC 32.5 (32.0-36.0) g/dL RDW Std Deviation 39.9 (36.4-46.3) fL RDW Coeff of Herb 13.2 (11.5-14.5) % Plt Count 269 (130-400) K/uL MPV 9.1 L (9.4-12.4) fL Immature Gran % (Auto) 0.7 % Neut % (Auto) 66.6 % Lymph % (Auto) 23.8 % [place] % (Auto) 7.4 % Eos % (Auto) 1.0 % Baso % (Auto) 0.5 % Neut # (Auto) 5.72 (1.40-6.50) K/uL Lymph # (Auto) 2.05 (1.20-3.40) K/uL [place] # (Auto) 0.64 H (0.11-0.59) K/uL Eos # (Auto) 0.09 (0.00-0.50) K/uL Baso # (Auto) 0.04 (0.00-0.20) K/uL Immature Gran # (Auto) 0.06 (0.01-0.20) K/uL PT 10.5 (9.0-12.0) Seconds INR 1.0 (0.9-1.1) APTT 29 (21-31) Seconds PTT Ratio 1.1 Sodium 129 L (136-145) mmol/L Potassium 4.3 (3.5-5.1) mmol/L Chloride 94 L (98-107) mmol/L Carbon Dioxide 28 (21-32) mmol/L Anion Gap 7 (3-11) BUN 19 (6-23) mg/dl Creatinine 0.94 (0.6-1.4) mg/dl Est Cr Clr Drug Dosing Not Reportable Est GFR ( Amer) 89.0 ml/min Est GFR (Non-Af Amer) 76.8 ml/min BUN/Creatinine Ratio 20.2 H (10-20) Glucose 126 H (70-99(Fasting)) mg/dl Calcium 10.0 (8.6-10.3) mg/dl Total Bilirubin 0.7 (0.2-1.0) mg/dl AST 15 (13-39) U/L ALT 19 (7-52) U/L Alkaline Phosphatase 81 (34-104) U/L Troponin I High Sens 36.5 H (0-20) pg/ml Total Protein 9.0 H (6.0-8.3) gm/dl Albumin 4.5 (3.4-5.0) gm/dl Globulin 4.5 H (2.5-4.0) gm/dl Albumin/Globulin Ratio 1.0 (0.9-2) Administered Medications Aspirin (Aspirin 81 Mg Ectab) 81 mg PO DAILY ZULEYMA Stop: 09/30/23 08:59 Last Admin: 08/31/23 08:16 Dose: 81 mg Documented By: MICHELLEK Carbidopa/Levodopa (Carbidopa/Levodopa 25-250 1 Ea Tab) 1 tab PO HS ZULEYMA Stop: 09/29/23 20:59 Last Admin: 08/30/23 21:09 Dose: 1 tab Documented By: PEGGY Carvedilol (Carvedilol 3.125 Mg Tab) 3.125 mg PO BIDM ZULEYMA Stop: 09/29/23 16:59 Last Admin: 08/31/23 08:16 Dose: 3.125 mg Documented By: Admin: 08/30/23 16:56 Dose: 3.125 mg Documented By: LENA Citalopram Hydrobromide (Citalopram 20 Mg Tab) 20 mg PO DAILY ZULEYMA Stop: 09/30/23 08:59 Last Admin: 08/31/23 08:16 Dose: 20 mg Documented By: EPRRY Famotidine (Famotidine 40 Mg Tablet) 40 mg PO DAILY ZULEYMA Stop: 09/30/23 08:59 Last Admin: 08/31/23 08:16 Dose: 40 mg Documented By: PERRY Gabapentin (Gabapentin 300 Mg Cap) 600 mg PO BID ZULEYMA Stop: 09/29/23 20:59 Last Admin: 08/31/23 08:16 Dose: 600 mg Documented By: Admin: 08/30/23 21:10 Dose: 600 mg Documented By: PEGGY Heparin Sodium (Porcine) (Heparin Sod 5,000 Unit/0.5 Ml Vial) 5,000 units SQ Q12 ZULEYMA Stop: 09/29/23 20:59 Last Admin: 08/31/23 08:17 Dose: 5,000 units Documented By: Admin: 08/30/23 21:08 Dose: 5,000 units Documented By: PEGGY Insulin Aspart (Insulin Aspart Per Unit Charge) 0 units SC ACHS [facility] Stop: 09/29/23 16:29 Last Admin: 08/31/23 12:15 Dose: 5 units Documented By: PERRY Co-signed By: WILBER Admin: 08/31/23 08:14 Dose: 3 units Documented By: PERRY Co-signed By: ELOY Admin: 08/30/23 21:08 Dose: 1 units Documented By: PEGGY Co-signed By: MARTHA Admin: 08/30/23 16:58 Dose: 2 units Documented By: LENA Co-signed By: ELOY Lisinopril (Lisinopril 20 Mg Tab) 20 mg PO DAILY ZULEYMA Stop: 09/30/23 08:59 Last Admin: 08/31/23 08:17 Dose: 20 mg Documented By: PERRY Simvastatin (Simvastatin 20 Mg Tab) 20 mg PO PM ZULEYMA Stop: 09/29/23 20:59 Last Admin: 08/30/23 21:09 Dose: 20 mg Documented By: PEGGY Discontinued Medications Acetaminophen (Acetaminophen 500 Mg Tab) 1,000 mg PO NOW STA Stop: 08/30/23 13:15 Last Admin: 08/30/23 13:28 Dose: 1,000 mg Documented By: MELINA Aspirin (Aspirin Chew 324 Mg) Confirm Administered Dose 324 mg .ROUTE .STK-MED ONE Stop: 08/30/23 13:14 Last Admin: 08/30/23 13:16 Dose: 324 mg Documented By: MELINA Aspirin (Aspirin Chew 324 Mg) 324 mg PO NOW STA Stop: 08/30/23 13:15 Last Admin: 08/30/23 14:46 Dose: Not Given Documented By: MELINA Fentanyl Citrate (Fentanyl Citrate Pf 100 Mcg/2 Ml Vial) Confirm Administered Dose 100 mcg .ROUTE .STK-MED ONE Stop: 08/30/23 15:20 Last Increment: 08/30/23 15:23 Dose: 25 mcg Documented By: NACHO Heparin Sodium (Porcine) (Heparin Sod (Porcine) 1000 Unit/Ml) 4,000 units IV NOW ONE Stop: 08/30/23 14:31 Last Admin: 08/30/23 14:33 Dose: 4,000 units Documented By: MELINA Co-signed By: SHARIF Heparin Sodium (Porcine) (Heparin (Porcine) 1000 Unit/Ml 10 Ml (Tape Editor Use Only)) Confirm Administered Dose 10,000 units .ROUTE .STK-MED ONE Stop: 08/30/23 15:20 Last Admin: 08/30/23 15:24 Dose: Not Given Documented By: NACHO Heparin Sodium/Dextrose (Heparin Iv Adult Wt-Based Low-Dose W/ Initial Bolus Protocol) 1 each IV NOW STA; Protocol Stop: 08/30/23 13:50 Last Admin: 08/30/23 14:34 Dose: 1 each Documented By: MELINA Heparin Sodium/Sodium Chloride (Heparin In Nss Infusion 1000 Unit/500 Ml (2 U/Ml) Bag) Confirm Administered Dose 3,000 units IV .STK-MED ONE Stop: 08/30/23 15:21 Last Admin: 08/30/23 15:25 Dose: 3,000 units Documented By: NACHO Hydrochlorothiazide (Hydrochlorothiazide 25 Mg Tab) 25 mg PO DAILY [facility] Stop: 09/30/23 08:59 Last Admin: 08/31/23 08:17 Dose: 25 mg Documented By: PERRY Heparin Sodium/Dextrose (Heparin Sodium/Dextrose) 25,000 units in 500 mls @ 20 mls/hr IV .Q24H ZULEYMA; Protocol Stop: 09/29/23 14:14 Last Titration: 08/30/23 16:23 Dose: Infused Documented By: LENA Co-signed By: BARRINGTON Admin: 08/30/23 14:34 Dose: 1,000 units/hr, 20 mls/hr Documented By: MELINA Co-signed By: SHARIF Ioversol (Optiray 350) Confirm Administered Dose 1 ml .ROUTE .STK-MED ONE Stop: 08/30/23 15:21 Last Admin: 08/30/23 15:25 Dose: 45 ml Documented By: NACHO Midazolam HCl (Midazolam Hcl 1 Mg/Ml 2ml Vial) Confirm Administered Dose 2 mg .ROUTE .STK-MED ONE Stop: 08/30/23 15:20 Last Increment: 08/30/23 15:24 Dose: 1 mg Documented By: NACHO Morphine Sulfate (Morphine Sulfate 4 Mg/Ml 1 Ml Carp\Vial) 4 mg IV NOW STA Stop: 08/30/23 13:47 Last Admin: 08/30/23 16:23 Dose: Not Given Documented By: LENA Nicardipine HCl (Nicardipine Hcl Inj 2.5 Mg/Ml 10 Ml Amp) Confirm Administered Dose 25 mg .ROUTE .STK-MED ONE Stop: 08/30/23 15:20 Last Admin: 08/30/23 15:24 Dose: 25 mg Documented By: NACHO Nitroglycerin (Nitroglycerin Sl 0.4 Mg/Tab Tab) Confirm Administered Dose 0.4 mg .ROUTE .STK-MED ONE Stop: 08/30/23 13:14 Last Admin: 08/30/23 13:16 Dose: 0.4 mg Documented By: MELINA Nitroglycerin (Nitroglycerin Sl 0.4 Mg/Tab Tab) 0.4 mg SL Q5M PRN PRN Reason: Chest Pain Stop: 09/29/23 13:13 Last Admin: 08/30/23 14:03 Dose: 0.4 mg Documented By: Admin: 08/30/23 13:57 Dose: 0.4 mg Documented By: MELINA Nitroglycerin (Nitroglycerin 2% Ointment 30gm Tube) 0.5 inch EXT NOW STA Stop: 08/30/23 13:15 Last Admin: 08/30/23 13:41 Dose: 0.5 inch Documented By: MELINA Nitroglycerin/Dextrose (Nitroglycerin/D5w 100mcg/Ml 20ml Syr) Confirm Administered Dose 2,000 mcg .ROUTE .STK-MED ONE Stop: 08/30/23 15:21 Last Admin: 08/30/23 15:25 Dose: 2,000 mcg Documented By: NACHO Ticagrelor (Ticagrelor 90 Mg Tab) 180 mg PO ONE ONE Stop: 08/30/23 13:50 Last Admin: 08/30/23 14:45 Dose: 180 mg Documented By: MELINA Imaging Data Radiologist's Impression: Chest X-Ray 08/30/23 12:09 SINGLE VIEW CHEST CLINICAL HISTORY: Atypical chest pain. FINDINGS: An AP, portable, upright chest radiograph is compared to study dated 03/01/2022. The heart is enlarged noting atherosclerotic calcification of the thoracic aorta. There is pulmonary vascular congestion. Chronic elevation of the right hemidiaphragm is similar to previous. Chronic interstitial thickening is unchanged. Scarring/atelectasis is seen at both lung bases. No airspace consolidation or large pleural effusion is identified. No pneumothorax is seen. The skeletal structures are osteopenic. The bony thorax is grossly intact. IMPRESSION: Cardiomegaly with pulmonary vascular congestion. ACT 112: Negative or not required by law. Electronically signed by: Renny Tuttle M.D. 08/30/2023 1:38 PM Discharge Plan Visit Data Chief Complaint: Chest Pain Stated Complaint: CHEST PAIN, SOB, DIZZINESS ED Provider: Juventino Hardwick Discharge Problem: ST elevation (STEMI) myocardial infarction, Abnormal EKG, Chest pain Patient Disposition: Admitted As Inpatient Discharge Instructions Interventions: ED Discharge Assessment Last Done: 08/30/23 15:31 Discharge Problem: ST elevation (STEMI) myocardial infarction Qualifiers: Involved coronary artery: unspecified coronary artery Qualified Code(s): I21.3 - ST elevation (STEMI) myocardial infarction of unspecified site Chest pain Qualifiers: Chest pain type: unspecified Qualified Code(s): R07.9 - Chest pain, unspecified
[2023-08-30 12:32] LABS: Basophils # (auto) 0.04 K/uL (0.00-0.20); Basophils % (auto) 0.5 %; Eosinophils # (auto) 0.09 K/uL (0.00-0.50); Hematocrit (blood only) 36.3 % (42.0-52.0); Hemoglobin 11.8 g/dl (14.0-18.0); Immature Granulocytes # (auto) 0.06 K/uL (0.01-0.20); Immature Granulocytes % (auto) 0.7 %; Lymphocytes # (auto) 2.05 K/uL (1.20-3.40); Lymphocytes % (auto) 23.8 %; Mean Corpuscular Hemoglobin 26.8 pg (25.0-34.0); Mean Corpuscular Hgb Conc 32.5 g/dL (32.0-36.0); Mean Corpuscular Volume 82.5 fL (80.0-100.0); Mean Platelet Volume 9.1 fL (9.4-12.4); Monocytes # (auto) 0.64 K/uL (0.11-0.59); Monocytes % (auto) 7.4 %; Neutrophils # (auto) 5.72 K/uL (1.40-6.50); Neutrophils % (auto) 66.6 %; Platelet Count 269 K/uL (130-400); RDW Coefficient of Variation 13.2 % (11.5-14.5); RDW Standard Deviation 39.9 fL (36.4-46.3)
[2023-08-30 12:47] LABS: Alanine Aminotransferase 19 U/L (7-52); Albumin Level 4.5 gm/dl (3.4-5.0); Alkaline Phosphatase 81 U/L (34-104); Anion Gap 7 (3-11); Aspartate Aminotransferase 15 U/L (13-39); BUN Creatinine Ratio 20.2 (10-20); Bilirubin,Total 0.7 mg/dl (0.2-1.0); Blood Urea Nitrogen 19 mg/dl (6-23); Carbon Dioxide 28 mmol/L (21-32); Chloride 94 mmol/L (98-107); Est GFR (Non-African American) 76.8 ml/min; Globulin 4.5 gm/dl (2.5-4.0); Glucose 126 mg/dl (70-99(Fasting)); Potassium 4.3 mmol/L (3.5-5.1); Sodium 129 mmol/L (136-145)
[2023-08-30 12:53] LABS: Troponin I High Sensitivity 36.5 pg/ml (0-20)
[2023-08-30 12:57] LABS: Partial Thromboplastin Ratio 1.1; Partial Thromboplastin Time 29 Seconds (21-31); Prothrombin Time 10.5 Seconds (9.0-12.0)
[2023-08-30] MEDS: NITROGLYCERIN SL 0.4 MG/TAB TAB ONE (13:16)
[2023-08-30] MEDS: ASPIRIN CHEW 324 MG ONE (13:16)
[2023-08-30] MEDS: ACETAMINOPHEN 500 MG TAB PO STA (13:28)
--- NOTE | 2023-08-30 13:39 | XRay Report ---
SINGLE VIEW CHEST CLINICAL HISTORY: Atypical chest pain. FINDINGS: An AP, portable, upright chest radiograph is compared to study dated 03/01/2022. The heart i s enlarged noting atherosclerotic calcification of the thoracic aorta. There is pulmonary vascular co ngestion. Chronic elevation of the right hemidiaphragm is similar to previous. Chronic interstitial t hickening is unchanged. Scarring/atelectasis is seen at both lung bases. No airspace consolidation or large pleural effusion is identified. No pneumothorax is seen. The skeletal structures are osteopeni c. The bony thorax is grossly intact. IMPRESSION: Cardiomegaly with pulmonary vascular congestion. ACT 112: Negative or not required by law. Electronically signed by: Renny Tuttle M.D. 08/30/2023 1:38 PM
[2023-08-30] MEDS: NITROGLYCERIN 2% OINTMENT 30GM TUBE EXT STA (13:41)
[2023-08-30] MEDS: NITROGLYCERIN SL 0.4 MG/TAB TAB SL PRN (13:57)
[2023-08-30] MEDS ORDERED: HEPARIN SOD (PORCINE) 1000 UNIT/ML IV ONE (14:04)
[2023-08-30] MEDS: HEPARIN SOD (PORCINE) 1000 UNIT/ML IV ONE (14:33)
[2023-08-30] MEDS: HEPARIN SODIUM/DEXTROSE 25,000 UNITS/500 ML BAG IV SCH (14:34)
[2023-08-30] MEDS: Heparin IV Adult Wt-Based Low-Dose w/ INITIAL Bolus Protocol IV STA (14:34)
--- NOTE | 2023-08-30 14:44 | Cardiology Consultation ---
Date of Consultation August 30, 2023 Assessment & Plan (1) ST elevation (STEMI) myocardial infarction: (2) Hypertension: (3) Dyslipidemia: (4) Cardiomyopathy: Plan ASSESSMENT/PLAN: 1. Acute STEMI: ST elevation noted on ECG with minimally elevated troponins and clinical history suggestive of angina. Large LAD territory wall motion abnormality on preliminary stat limited echo. Recommend urgent cardiac catheterization. Risks and benefits were discussed with him in detail. He was made aware that CT surgery is not available at this facility. Heparin and aspirin were administered. Full echo to follow later this hospital stay. 2. Hypertension: Blood pressure elevated. Given cardiomyopathy and hypertension/FL, can continue JOANN inhibitor vs ARNI, beta-jo-ann such as carvedilol. 3. Dyslipidemia: High intensity statin therapy in place of simvastatin. 4. Disposition: Emergent cardiac catheterization recommended. Loft Worker staff immediately notified. Discussed with Dr. Balderrama of interventional cardiology who will be performing the case. Discussed with ER provider, Dr. Hardwick and ER nursing staff who are at the bedside administering medications. [facility]. Highly complex medical issues. 45 minutes of critical care time spent, including [id number] time, counseling patient, coordinating care, reviewing records, discussing with multiple providers, and completing documentation. Thank you for allowing me to participate in the care of your patient. Please call for any other questions or concerns. Sincerely, Cam Valero M.D. History of Present Illness Reason for Consultation: Acute myocardial infarction Requesting Physician: Dr. Hardwick Attending Physician: Dr. Hardwick History of Present Illness Mr. Liu is a very pleasant 78-year-old gentleman with a history significant for type 2 diabetes, hypertension, and dyslipidemia. He presented to the ER today after experiencing substernal chest pressure at approximately 12 PM today while seated at [employer], before eating. He describes the pain as an elephant sitting on his chest. There was associated shortness of breath and he became very pale but not diaphoretic. He has not had any chest discomfort otherwise leading up to this. He has not been active due to back pain requiring an injection which occurred 2 days ago. He has been less active since 2021 when he fractured his right hip, which required surgery. He received nitroglycerin x 2 which improved the pain from a 10/10 down to a 4/10 and during our conversation down to a 3/10. Nitroglycerin paste was also applied by the ER. He received a full dose aspirin. Heparin was pending at the time of initial consultation as was Brilinta. He denies melena, hematochezia, hematuria, or other bleeding. He denies syncope, near syncope, palpitations, or edema. He has never had a cardiac catheterization. He denies any previous cardiac history. Review of systems: As above. Review of systems otherwise negative/unremarkable. Family history: Father had CHF. No known premature CAD. Social history: He quit smoking approximately 50 years ago. He denies alcohol or drug abuse. He is . His , Clarissa, and daughter, Nikia, were present at the bedside in the ER. Allergies Allergy/AdvReac Type Severity Reaction Status Date / Time Penicillins Allergy Unknown unsure Verified 03/01/22 19:10 Home Medications Medication Instructions Recorded Confirmed Type simvastatin 20 mg tablet (Zocor) 20 mg PO PM #0 tabs 04/08/15 08/30/23 History metformin 500 mg tablet 1,000 mg PO QAM 07/19/19 08/30/23 History carbidopa 25 mg-levodopa 250 mg 1 tab PO HS 03/01/22 08/30/23 History tablet citalopram 20 mg tablet 20 mg PO DAILY 03/01/22 08/30/23 History famotidine 40 mg tablet 40 mg PO DAILY 03/01/22 08/30/23 History metformin 500 mg tablet 500 mg PO .MARCEL MEAL 03/01/22 08/30/23 History lisinopril 20 mg tablet 20 mg PO DAILY #30 tabs 03/09/22 08/30/23 Rx aspirin 81 mg tablet,delayed 81 mg PO DAILY 08/30/23 08/30/23 History release gabapentin 300 mg capsule 600 mg PO BID 08/30/23 08/30/23 History hydrochlorothiazide 25 mg tablet 25 mg PO DAILY 08/30/23 08/30/23 History Problem List (Updated 08/30/23 @ 20:32 by Julia Matamoros PA-C) Elevated blood protein Chronic hyponatremia Abnormal EKG Chest pain Cardiomyopathy ST elevation (STEMI) myocardial infarction Encounter for pre-operative examination Fall (Acute) Closed fracture of right hip (Acute) Fracture of femoral neck, right Depression GERD (gastroesophageal reflux disease) RLS (restless legs syndrome) Hypertension Dyslipidemia DM type 2 (diabetes mellitus, type 2) Patient History Surgical History No pertinent past surgical history Family History Father Hypertension Social History Smoking Status: Former smoker Tobacco Type: Cigarettes Hx Alcohol Use: No Hx Substance Use: No Preferred Language: Indonesian Communication Ability: Effective 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 Alert. HEENT: Anicteric sclera. Neck: No JVD. No bruits. Normal carotid upstrokes bilaterally. Cardiac: No ventricular heave. Regular. Normal S1-S2. No murmurs, rubs, or gallops. Pulmonary: Clear to auscultation bilaterally without wheezes, rales, or rhonchi. Abdomen: Soft, nontender, nondistended, with normoactive bowel sounds. No bruits noted. Extremities: 2+ radial pulses bilaterally. 2+ posterior tibialis pulses bilaterally. No edema or cyanosis. Psychiatric: Affect appears appropriate. Results & Data Vital Signs (Past 12 Hours) Vital Signs Temp Pulse Resp BP Pulse Ox O2 Del Method 08/30/23 12:46 74 08/30/23 12:45 73 20 96 Room Air 08/30/23 12:40 96 Room Air 08/30/23 12:05 36.8 C 84 14 181/88 H 100 Room Air Laboratory Results Laboratory Results - last 24 hr 08/30/23 12:17 WBC 8.60 RBC 4.40 L Hgb 11.8 L Hct 36.3 L MCV 82.5 MCH 26.8 MCHC 32.5 RDW Std Deviation 39.9 RDW Coeff of Herb 13.2 Plt Count 269 MPV 9.1 L Immature Gran % (Auto) 0.7 Neut % (Auto) 66.6 Lymph % (Auto) 23.8 [place] % (Auto) 7.4 Eos % (Auto) 1.0 Baso % (Auto) 0.5 Neut # (Auto) 5.72 Lymph # (Auto) 2.05 [place] # (Auto) 0.64 H Eos # (Auto) 0.09 Baso # (Auto) 0.04 Immature Gran # (Auto) 0.06 PT 10.5 INR 1.0 APTT 29 PTT Ratio 1.1 Sodium 129 L Potassium 4.3 Chloride 94 L Carbon Dioxide 28 Anion Gap 7 BUN 19 Creatinine 0.94 Est Cr Clr Drug Dosing Not Reportable Est GFR ( Amer) 89.0 Est GFR (Non-Af Amer) 76.8 BUN/Creatinine Ratio 20.2 H Glucose 126 H Calcium 10.0 Total Bilirubin 0.7 AST 15 ALT 19 Alkaline Phosphatase 81 Troponin I High Sens 36.5 H Total Protein 9.0 H Albumin 4.5 Globulin 4.5 H Albumin/Globulin Ratio 1.0 Diagnostic Findings ECGs personally reviewed: ECG 08/30/2023 at 12:11 PM: Sinus rhythm first-degree AV block [address] elevation. ECG 08/30/2023 at 12:41 PM: Sinus rhythm first-degree AV block. Anterior ST elevation. ECG 08/30/2023 at 1331: Sinus rhythm first-degree AV block 79 bpm. Anterolateral infarct. Anterior ST elevation. Possible inferior infarct. ECG 08/30/2023 at 1411: Sinus rhythm first-degree AV block 86 bpm. Anterolateral infarct. Anterior ST elevation. Possible inferior infarct. Labs reviewed from 08/30/2023: Mild anemia, normal transaminase levels, normal renal function, normal potassium, chronic and stable hyponatremia, elevated high-sensitivity troponin. Chest x-ray 08/30/2023: Images not available for review but radiology reports cardiomegaly with pulmonary vascular congestion. Stat bedside echo (limited): Preliminary review demonstrated large LAD territory wall motion abnormality and reduced LV systolic function. Medications Administered Current Inpatient Medications Heparin Sodium/Dextrose (Heparin Sodium/Dextrose) 25,000 units in 500 mls @ 20 mls/hr IV .[facility]; Protocol Stop: 09/29/23 14:14 Last Admin: 08/30/23 14:34 Dose: 1,000 units/hr, 20 mls/hr Nitroglycerin (Nitroglycerin Sl 0.4 Mg/Tab Tab) 0.4 mg SL Q5M PRN PRN Reason: Chest Pain Stop: 09/29/23 13:13 Last Admin: 08/30/23 14:03 Dose: 0.4 mg PG Care Time/CCT Total # of Minutes Spent Total Time Spent with Patient: Total time spent is greater than 50% in coordination of care (as documented) at patient's floor/unit and/or counseling patient: Coding Level of Care Code 52126 CRITICAL CARE 1ST 30-74M Diagnoses ST elevation (STEMI) myocardial infarction I21.3 Hypertension I10 Dyslipidemia E78.5 Cardiomyopathy I42.9
[2023-08-30] MEDS: TICAGRELOR 90 MG TAB PO ONE (14:45)
[2023-08-30] MEDS: ASPIRIN CHEW 324 MG PO STA (14:46)
--- NOTE | 2023-08-30 14:55 | Pre Anesthesia Assessment ---
Date of Service August 30, 2023 Pre Sedation Assessment Vital Signs Temp Pulse Resp BP Pulse Ox O2 Del Method 08/30/23 12:46 74 08/30/23 12:45 73 20 96 Room Air 08/30/23 12:40 96 Room Air 08/30/23 12:05 36.8 C 84 14 181/88 H 100 Room Air Cardiovascular + regular rate Respiratory normal respiratory effort, lungs clear to auscultation Pre-Sedation Airway Assessment Smoking Status: Former smoker Mallampati Class: III ASA: ASA3 NPO Status Date of Last Intake of Fluids: 08/30/23 Time of Last Intake of Fluids: 13:00 Last Oral Intake of Fluids Comment: sips with meds Date of Last Intake of Solid Food: 08/30/23 Time of Last Intake of Solid Foods: 08:00 Procedure Planning Contraindications for Sedation: none Current Medications Reviewed: Yes Notes The planned sedation has been discussed with the patient. Informed Consent was obtained. I have identified the patient, determined the appropriateness of sedation and have assessed the patient immediately prior to the procedure. All medicine(s) and interventions are by my order.
--- NOTE | 2023-08-30 14:57 | History & Physical Report ---
Date of Service August 30, 2023 Assessment & Plan (1) Chest pain: (2) Cardiomyopathy: (3) Abnormal EKG: Plan: Patient is 78 year old male with PMH DM II, HTN, dyslipidemia, depression, chronic hyponatremia, GERD and others listed below presented to ER with c/o ch est pressure, SOB. Reported CP 8 out of 10 on pain scale. He was given 324mg aspirin, 2 SL nitro and has nitro paste in place in ER and rates pain 5 out of 10. Currently upon my evaluation patient rates pain 3 out of 10. Noted evolving EKG changes in ER. Troponin: 36 In ER received IV heparin and Brilinta ordered. DDX: ACS, Cardiomyopathy Cardiology at bedside and plans to take patient to equipment operator/laborer/supervisor. Trend troponin Echo Aspirin, continue simvastatin Cardiac cath: Mild coronary artery disease in major epicardial vessels, 25% diffuse proximal LAD, 30% mid to distal circumflex, 25% proximal to mid RCA, Branch vessel [id number]% ostial small diagonal, Elevated intracardiac filling pressure, Moderate to severe LV dysfunction with apical akinesis/dyskinesis. Cardiology consult. Recommended starting carvedilol 3.125mg BID and continuing home lisinopril CBC, CMP, lipid panel in AM (4) Chronic hyponatremia: Plan: Na: 129. Was 131 on 05/28/23 Repeat BMP tonight and monitor (5) Elevated blood protein: Plan: Total Protein 9.0, was 8.5 05/2023 Consider further workup with spep Repeat CMP in am (6) Hypertension: Plan: BP elevated in ER Continue lisinopril, HCTZ Carvedilol 3.125mg BID started (7) Dyslipidemia: Plan: Continue simvastatin (8) DM type 2 (diabetes mellitus, type 2): Plan: A1c: 6.7 on 04/08/23 Hold home metformin Novolog sliding scale per protocol A1c in AM (9) GERD (gastroesophageal reflux disease): Plan: Continue Pepcid (10) Depression: Plan: Continue citalopram DVT Prophylaxis Heparin SQ Full Code as per discussion with pt Follows with Arin Tay PA-C for routine care Pt was seen and care coordinated with Dr Geiger. See addendum I spent a total of 77 minutes reviewing notes, outpatient records, labs, medication, coordinating, documenting and providing care for this patient excluding time spent in the performance of separately billed services. History of Present Illness Chief Complaint: CP Primary Care Provider: Arin Tay PA-C Patient is 78 year old male with PMH DM II, HTN, dyslipidemia, depression, chronic hyponatremia, GERD and others listed below presented to ER with c/o CP. History obtained from patient and outpatient chart review. Patient states today started with mid chest pressure with radiation to shoulder around noon while he was at restaurant. He was sitting and did not eat yet when pain started. Also reports SOB. Denies diaphoresis or palpitations or dizziness. Family reports he looked pale. Patient reported CP 8 out of 10 on pain scale. He was given 324mg aspirin, 2 SL nitro and has nitro paste in place in ER and rates pain 5 out of 10. Currently upon my evaluation patient rates pain 3 out of 10. Patient had noted evolving EKG changes in ER. In ER he has received IV heparin and Brilinta ordered. Cardiology at bedside and plans to take patient to equipment operator/laborer/supervisor. Denies fever/chills, N/V/D/C, GARCIA, dizziness, syncope, vision changes, orthopnea, cough, sore throat, rhinorrhea, abdominal pain, paresthesias, extremity weakness, extremity edema, rashes, urinary symptoms. Allergies Allergy/AdvReac Type Severity Reaction Status Date / Time Penicillins Allergy Unknown unsure Verified 03/01/22 19:10 Home Medications Medication Instructions Recorded Confirmed Type simvastatin 20 mg tablet (Zocor) 20 mg PO PM #0 tabs 04/08/15 08/30/23 History metformin 500 mg tablet 1,000 mg PO QAM 07/19/19 08/30/23 History carbidopa 25 mg-levodopa 250 mg 1 tab PO HS 03/01/22 08/30/23 History tablet citalopram 20 mg tablet 20 mg PO DAILY 03/01/22 08/30/23 History famotidine 40 mg tablet 40 mg PO DAILY 03/01/22 08/30/23 History metformin 500 mg tablet 500 mg PO .MARCEL MEAL 03/01/22 08/30/23 History lisinopril 20 mg tablet 20 mg PO DAILY #30 tabs 03/09/22 08/30/23 Rx aspirin 81 mg tablet,delayed 81 mg PO DAILY 08/30/23 08/30/23 History release gabapentin 300 mg capsule 600 mg PO BID 08/30/23 08/30/23 History hydrochlorothiazide 25 mg tablet 25 mg PO DAILY 08/30/23 08/30/23 History Past Med/Surg History Problem List (Updated 08/30/23 @ 20:32 by Julia Matamoros PA-C) Elevated blood protein Chronic hyponatremia Abnormal EKG Chest pain Cardiomyopathy ST elevation (STEMI) myocardial infarction Encounter for pre-operative examination Fall (Acute) Closed fracture of right hip (Acute) Fracture of femoral neck, right Depression GERD (gastroesophageal reflux disease) RLS (restless legs syndrome) Hypertension Dyslipidemia DM type 2 (diabetes mellitus, type 2) Surgical History No pertinent past surgical history Family History Father Hypertension Social History Smoking Status: Former smoker Tobacco Type: Cigarettes Hx Alcohol Use: No Hx Substance Use: No Preferred Language: Kiswahili Communication Ability: Effective Color Room Attendant Required: No Beliefs That Will Affect Care: None Current Living Situation: Spouse Other Information That Helps Us Care for You: No Feels Safe at Home: Yes Safety Concerns: Feels Safe At This Time Assistive Devices: Glasses Review of Systems Review of Systems: All systems reviewed & are unremarkable except as noted in HPI & below Physical Exam Physical Exam: General: mild distress secondary to chest discomfort, WDWN Head: normocephalic, atraumatic Eyes: conjunctiva non-injected, anicteric ENT: normal inspection external ears, nose, mucous membranes moist Neck: supple, trachea midline Lungs: clear, no respiratory distress, no wheezing/rhonchi/rales CV: RRR, no murmur, no pretibial edema Abd: normal BS, soft, non-tender Ext: no cyanosis, no calf tenderness Neuro: A&O x 3, no focal deficits noted, normal affect Skin: warm, dry Results & Data Results & Data Vital Signs (Past 12 Hours) Vital Signs Temp Pulse Resp BP Pulse Ox O2 Del Method 08/30/23 12:46 74 08/30/23 12:45 73 20 96 Room Air 08/30/23 12:40 96 Room Air 08/30/23 12:05 36.8 C 84 14 181/88 H 100 Room Air Laboratory Results Short CBC 08/30/23 Range/Units 12:17 WBC 8.60 (4.8-10.8) K/ul Hgb 11.8 L (14.0-18.0) g/dl Hct 36.3 L (42.0-52.0) % Plt Count 269 (130-400) K/uL BMP 08/30/23 08/30/23 12:17 18:58 Sodium 129 L 127 L Potassium 4.3 4.2 Chloride 94 L 93 L Carbon Dioxide 28 24 BUN 19 20 Creatinine 0.94 1.14 Glucose 126 H 135 H Calcium 10.0 9.5 Liver Function 08/30/23 Range/Units 12:17 Total Bilirubin 0.7 (0.2-1.0) mg/dl AST 15 (13-39) U/L ALT 19 (7-52) U/L Alkaline Phosphatase 81 (34-104) U/L Albumin 4.5 (3.4-5.0) gm/dl Diagnostic Findings Chest X-Ray 08/30/23 12:09 SINGLE VIEW CHEST CLINICAL HISTORY: Atypical chest pain. FINDINGS: An AP, portable, upright chest radiograph is compared to study dated 03/01/2022. The heart is enlarged noting atherosclerotic calcification of the thoracic aorta. There is pulmonary vascular congestion. Chronic elevation of the right hemidiaphragm is similar to previous. Chronic interstitial thickening is unchanged. Scarring/atelectasis is seen at both lung bases. No airspace consolidation or large pleural effusion is identified. No pneumothorax is seen. The skeletal structures are osteopenic. The bony thorax is grossly intact. IMPRESSION: Cardiomegaly with pulmonary vascular congestion. ACT 112: Negative or not required by law. Electronically signed by: Renny Tuttle M.D. 08/30/2023 1:38 PM Supervising Physician Co-Signing Physician Notes I have seen and discussed the case with the collaborating advanced practitioner. I agree with the above H&P. I have reviewed and confirmed the patients medical history, the findings on physical examination, and the patients diagnosis and treatment plan with Saturnino SAINZ and agree with the information documented. In short, Mr. Liu is a 78 year old gentleman with DM II, HTN, dyslipidemia, depression, chronic hyponatremia, GERD admitted for chest pain and brought to manager labor delivery given concern for STEMI. Patient states he was eating lunch when he felt severe crushing chest pain. This pain resolved minimally with nitro and asa. He denies any history of chest pain or prior VA. Appears uncomfortable, visible anxious. RRR, nor MRG. lungs CTAB. no edema Labs with trop of 36.5-->1344.6, chronic anemia, elevated protein 9.0 #Acute typical chest pain, c/f STEMI #Acute heart failure with reduced ejection fraction #nonischemic cardiomyopathy -ECHO with 35-40% EF, LVH, apical/LAD dyskinesis Cath with mild CAD non obstructive -Continue coreg 3.125 Continue lisinopril continue ASA and statin Cards following GDMT as tolerated Monitor on tele #Elevated protein/globulin no history of mgus/mm noted in chart spep ordered repeat cmp in am #DMTII hold metformin basal/bolus insulin #HLD statin #parkisons disease -continue sinemet #depression continue celexa #Gerd continue pepcid dvt pp heparin pcu/tele I spent a total of 35 minutes coordinating, documenting, and providing care for this patient excluding time spent in the performance of separately billed services. All of the aforementioned completed outside of collaborating with the assigned advanced practitioner for a full treatment plan. I have reviewed the advanced practitioner's documentation, and I agree with, and take responsibility for the plan of care
[2023-08-30] MEDS: fentaNYL citrate PF 100 MCG/2 ML VIAL ONE (15:23)
[2023-08-30] MEDS: MIDAZOLAM HCL 1 MG/ML 2ML VIAL ONE (15:24)
[2023-08-30] MEDS: HEPARIN (PORCINE) 1000 UNIT/ML 10 ML (CATH LAB USE ONLY) ONE (15:24)
[2023-08-30] MEDS: niCARdipine HCL INJ 2.5 MG/ML 10 ML AMP ONE (15:24)
[2023-08-30] MEDS: NITROGLYCERIN/D5W 100MCG/ML 20ML SYR ONE (15:25)
[2023-08-30] MEDS: OPTIRAY 350 ONE (15:25)
--- NOTE | 2023-08-30 15:29 | Post Anesthesia Assessment ---
Date of Service August 30, 2023 Post Sedation Assessment Vital Signs Temp Pulse Resp BP Pulse Ox O2 Del Method 08/30/23 12:46 74 08/30/23 12:45 73 20 96 Room Air 08/30/23 12:40 96 Room Air 08/30/23 12:05 98.2 F 84 14 181/88 H 100 Room Air Recovery Score Activity: Moves 4 extremities Respiration: Deep Breath/Cough Circulation: +/-20% PreAnes Value Consciousness: Fully Awake Oxygen Saturation: O2 needed for >90% Discharge Sedation Level of Care: Fast Track Phase II Post Sedation Plan On clinical assessment, the patient appears to have tolerated the sedation without complications. Patient is recovering as anticipated. Patient will continue to be monitored by nursing and may be discharged when sedation discharge criteria are met per below protocol. Upon Completions of procedure up to 15 minutes continue every 5 minute vital signs and the P.A.R. score; then discharge to a Phase I or Fast Track to Phase II per the following guidelines: * Discharge Patient to appropriate Phase II area if PAR is 8 or greater or return to pre- procedure baseline. The post - procedure orders will be as directed. * If PAR score is less than 8 or not return to pre-procedure baseline then patient will follow Phase I monitoring till PAR is reached for Phase II. The Phase I may be done in procedure room or may call to secure a Phase I area. * If naloxone or flumazenil are used for reversal, hold in Phase I for continued monitoring from when last reversal dose was given for a minimum of 60 minutes or longer pending the nurse and/or physician discretion of patient condition before discharge to Phase II. Please call the Sedation Physician to re-evaluate and complete post-note for discharge to Phase II area. Do NOT discharge from procedure sedation or Phase 1 until post- sedation evalu ation note is complete by procedure /sedation MD Sedation Discharge Instructions to be given to the patient at discharge to home.
--- NOTE | 2023-08-30 15:38 | Cardiac Catheterization ---
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 General Cardiac Status Clinical evaluation leading to the procedure CAD Presenation: Non STEMI Anginal Classification: CCS IV Diagnostic Physicians Name: Joe Balderrama MD Closure Device Recommendations: PCI without planned CABG Cardiac Cath Procedure Full Procedure Date August 30, 2023 Pre-Procedure Diagnosis Pre-Procedure Diagnosis: STEMI and Acute Coronary Syndrome AUC Score AUC Score: 9 Post-Procedure Diagnosis Post-Procedure Diagnosis: Mild CAD, Decreased LV Systolic Function and Elevated Intracardiac Pressures Procedure(s) Performed Procedure(s) Performed: Coronary Angiography, Left Heart Cath and LV Angiography Chef Passenger Vessel Joe Balderrama MD Chemistry Quality Control Analyst(s) Deibler Estimated Blood Loss Estimated Blood Loss: 5 Medication(s) Medication(s): Fentanyl, Heparin, Lidocaine 1%, Nicardipine, Nitroglycerin and Versed Medication(s): Ticagrelor Summary of Findings Indication: High risk ACS. Evolving anterior changes on EKG with new anterior wall motion abnormality on echo. Access: 6 Fr right radial artery Catheters: EBU 3.5 guide, JR4, pigtail Findings: LM -normal caliber, no significant disease LAD -medium caliber, calcified, 20-30% diffuse proximal disease. Mid vessel with 30% stenosis and myocardial bridging. Distal vessel without significant disease and extends around apex. Small D1 without disease. Small D2 with 70% ostial stenosis. Circumflex -medium caliber, 30% mid to distal disease. High OM1 without disease. Left PLB without disease RCA -dominant, large caliber, 25% proximal to mid segment disease. Distal luminal irregularities. PDA/PLB without significant disease. LVEDP -19 LV gramhyperdynamic basal segments, akinetic to dyskinetic apex, EF 35% Arterial Closure: TR band Summary: 1. Mild coronary artery disease in major epicardial vessels - 25% diffuse proximal LAD 30% mid to distal circumflex 25% proximal to mid RCA 2. Small branch vessel yulypvo22% ostial diagonal 3. Elevated intracardiac filling pressure 4. Moderate to severe LV dysfunction with apical akinesis/dyskinesis. Recommendations: No acute high risk CAD to explain patient's presenting symptoms. 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 Titrate GDMT for NICM and gentle diuresis as needed Continued ASCVD risk factor modification. Hemodynamics Rest Ao:: 154/80/119 Final Ao: 154/82/114 LV: 150/19 Recommendations Recommendations: PCI without planned CABG Radiation Exposure (mGy) 880 Contrast (mls) 65 Anesthesia Moderate [id number] Procedural Complication(s) None Disposition PCU I attest to the content of the Intraoperative Record and any orders documented therein. Any exceptions are noted below. [facility] Card Cath Procedure Codes Cardiac Catheterization Procedure 1: Cardiovascular Cath Procedures: 63785 Coronaries and LHC (+/-LV) Moderate Sedation Procedure 1: Sedation/Anesthesia: 98228 Mod Sedation by the same physician;Init15 Min Child Age 5 & Up PG Care Time/CCT Total # of Minutes Spent Total Time Spent with Patient: Total time spent is greater than 50% in coordination of care (as documented) at patient's floor/unit and/or counseling patient:
[2023-08-30] MEDS ORDERED: GLUCOSE 40% GEL 15 GM TUBE PO PRN (16:13)
[2023-08-30] MEDS ORDERED: POLYETHYLENE (MIRALAX) 17 GM PACK PO PRN (16:13)
[2023-08-30] MEDS ORDERED: GLUCAGON FOR INJ 1 MG VIAL SQ PRN (16:13)
[2023-08-30] MEDS ORDERED: GLUCOSE 10 TAB/TUBE PO PRN (16:13)
[2023-08-30] MEDS ORDERED: DEXTROSE 50% 50 ML SYRINGE IV PRN (16:13)
[2023-08-30] MEDS ORDERED: ACETAMINOPHEN 325 MG TAB PO PRN (16:13)
[2023-08-30] MEDS ORDERED: CARBOHYDRATES FOR HYPOGLYCEMIA PO PRN (16:13)
[2023-08-30] MEDS: MoRPHine SULFATE 4 MG/ML 1 ML CARP\\VIAL IV STA (16:23)
[2023-08-30] MEDS: carvediloL 3.125 MG TAB PO SCH (16:56)
[2023-08-30] MEDS: INSULIN ASPART PER UNIT CHARGE SC SCH (16:58)
--- NOTE | 2023-08-30 18:46 | XCELERA ---
[id number] \\[email or web address]\[id number]
[2023-08-30 19:49] LABS: BUN Creatinine Ratio 17.5 (10-20); Calcium 9.5 mg/dl (8.6-10.3); Creatinine Clr Calc Pharmacy 67.9 ml/min; Est GFR (African American) 70.5 ml/min; Est GFR (Non-African American) 60.8 ml/min; Potassium 4.2 mmol/L (3.5-5.1)
[2023-08-30] MEDS: HEPARIN SOD 5,000 UNIT/0.5 ML VIAL SQ SCH (21:08)
[2023-08-30] MEDS: SIMVASTATIN 20 MG TAB PO SCH (21:09)
[2023-08-30] MEDS: CARBIDOPA/LEVODOPA 25-250 1 EA TAB PO SCH (21:09)
[2023-08-30] MEDS: GABAPENTIN 300 MG CAP PO SCH (21:10)
--- NOTE | 2023-08-31 06:42 | Electrocardiogram Report ---
Test Reason : Blood Pressure : / mmHG Vent. Rate : 076 BPM Atrial Rate : 076 BPM P-R Int : 224 ms QRS Dur : 110 ms QT Int : 392 ms P-R-T Axes : 042 -31 026 degrees QTc Int : 441 ms Sinus rhythm with 1st degree A-V block Left axis deviation Low voltage QRS Poor R wave progression, consider anterior WA vs. lead placement vs. LVH Abnormal ECG When compared with ECG of 28-MAY-2023 22:33, No significant change Confirmed by Fernandez Valero ([id number]) on 08/31/2023 6:41:46 AM Referred By: REFERRED SELF Confirmed By:Fernandez Valero
--- NOTE | 2023-08-31 06:42 | Electrocardiogram Report ---
Test Reason : Blood Pressure : / mmHG Vent. Rate : 072 BPM Atrial Rate : 072 BPM P-R Int : 228 ms QRS Dur : 114 ms QT Int : 388 ms P-R-T Axes : 033 -32 017 degrees QTc Int : 424 ms Sinus rhythm with 1st degree A-V block Left axis deviation Cannot rule out Anterior infarct , age undetermined ST elevation, consider anterior injury pattern Abnormal ECG When compared with ECG of 30-AUG-2023 12:11, No significant change Confirmed by Fernandez Valero ([id number]) on 08/31/2023 6:42:28 AM Referred By: REFERRED SELF Confirmed By:Fernandez Valero
--- NOTE | 2023-08-31 06:43 | Electrocardiogram Report ---
Test Reason : Blood Pressure : / mmHG Vent. Rate : 086 BPM Atrial Rate : 086 BPM P-R Int : 224 ms QRS Dur : 118 ms QT Int : 388 ms P-R-T Axes : 027 -69 010 degrees QTc Int : 464 ms Sinus rhythm with 1st degree A-V block Left axis deviation Low voltage QRS Inferior infarct (cited on or before 30-AUG-2023) Anterior infarct (cited on or before 30-AUG-2023) Abnormal ECG When compared with ECG of 30-AUG-2023 13:31, No significant change was found Confirmed by Fernandez Valero ([id number]) on 08/31/2023 6:43:33 AM Referred By: REFERRED SELF Confirmed By:Fernandez Valero
--- NOTE | 2023-08-31 06:43 | Electrocardiogram Report ---
Test Reason : Blood Pressure : / mmHG Vent. Rate : 079 BPM Atrial Rate : 079 BPM P-R Int : 234 ms QRS Dur : 118 ms QT Int : 390 ms P-R-T Axes : 022 -58 011 degrees QTc Int : 447 ms Sinus rhythm with 1st degree A-V block Left axis deviation Low voltage QRS Possible Inferior infarct , age undetermined Anterior infarct (cited on or before 30-AUG-2023) ST elevation, consider anterior injury pattern Abnormal ECG When compared with ECG of 30-AUG-2023 12:41, Questionable change in initial forces of Anterolateral leads Confirmed by Fernandez Valero ([id number]) on 08/31/2023 6:43:12 AM Referred By: REFERRED SELF Confirmed By:Fernandez Valero
[2023-08-31 07:23] LABS: Hematocrit (blood only) 34.9 % (42.0-52.0); Hemoglobin 11.5 g/dl (14.0-18.0); Mean Corpuscular Hemoglobin 26.9 pg (25.0-34.0); Mean Corpuscular Volume 81.5 fL (80.0-100.0); Mean Platelet Volume 9.1 fL (9.4-12.4); Platelet Count 248 K/uL (130-400); RDW Coefficient of Variation 13.5 % (11.5-14.5); RDW Standard Deviation 39.6 fL (36.4-46.3); Red Blood Count 4.28 M/uL (4.70-6.10); White Blood Count 6.78 K/ul (4.8-10.8)
[2023-08-31 07:37] LABS: Albumin Level 4.1 gm/dl (3.4-5.0); BUN Creatinine Ratio 22.1 (10-20); Bilirubin,Total 0.9 mg/dl (0.2-1.0); Calcium 9.9 mg/dl (8.6-10.3); Chol HDL Ratio 2.5 (0-5); Creatinine Clr Calc Pharmacy 83.2 ml/min; Est GFR (African American) 95.6 ml/min; Est GFR (Non-African American) 82.5 ml/min; Globulin 4.3 gm/dl (2.5-4.0); Potassium 4.3 mmol/L (3.5-5.1); Total Protein 8.4 gm/dl (6.0-8.3)
[2023-08-31 07:54] LABS: Estimated Average Glucose 143 mg/dl; Hemoglobin A1C 6.6 % (4.5-5.6)
[2023-08-31] MEDS: ASPIRIN 81 MG ECTAB PO SCH (08:16)
[2023-08-31] MEDS: CITALOPRAM 20 MG TAB PO SCH (08:16)
[2023-08-31] MEDS: FAMOTIDINE 40 MG TABLET PO SCH (08:16)
[2023-08-31] MEDS: lisinopril 20 MG TAB PO SCH (08:17)
[2023-08-31] MEDS: hydroCHLOROthiazide 25 MG TAB PO SCH (08:17)
--- OUTSIDE RECORDS SUMMARY | 2023-08-31 08:41 | External Medical Summary | Summary of Care ---
Author Name Unknown Organization [facility] [address] [address] Phone [phone] Care Team Providers Care Computer Consultant Name Role Phone JasvirArin ALISTAIR Primary Care Provider [phone] Encounter Details Date Type Department Care Team (Late st Contact Info) Description 07/26/2023 Orders Only PATIENT PORTAL DO NOT DELETE THIS DEPT USED BY [place] COREA [id number] Allergies Active Allergy Reactions Criticality Noted Date Comments Penicillins 05/28/2000 documented as of this encounter (statuses as of 07/26/2023) Medications Medication Sig Dispensed Refills Start Date End Date Status ONETOUCH ULTRA SYSTEM W/DEVICE KITIndications:DM type 2 nursing care encounter (HCC) Use up to four times a day as directed 1 Kit 0 01/23/2011 Active aspirin enteric coated 81 MG TBEC Take 1 Tab by mouth daily. 100 Tab 3 07/25/2016 Active Glucose Blood In Vitro StripIndications:T ype 2 diabetes mellitus with hemoglobin A1c goal of less than 7.0% (HCC) USE ONE STRIP TWO TIMES A DAY 200 Strip 3 08/25/2022 4 Active Carbidopa-Levodopa 25-250 MG Oral Tablet (Sinemet) TAKE ONE TABLET BY MOUTH AT BEDTIME 90 Tablet 3 08/22/2022 4 Active Lisinopril 20 MG Oral Tablet (Prinivil)Indicati ons:HTN, goal below 140/90 Take 1 Tablet by mouth in the morning. 30 Tablet 11 02/22/2023 Active Silver sulfADIAZINE 1 % External Cream (Silvadene) Apply topically to affected area daily. Apply to leg wound. 50 g 1 05/01/2023 Active Gabapentin 300 MG Oral Capsule (Neurontin) Take 1 capsule by mouth in the morning and afternoon and 2 capsules at night x 1 week. Then advance as tolerated to 2 capsules by mouth in the morning, 1 capsule midday and 2 capsules at night x 1 week. If additional relief desired, then advance to 2 capsules three times daily. Advance only as tolerated. 180 Capsule 2 05/23/2023 Active Additional Information Patient taking differently: 600 mg Oral BID (.AM/PM), (No instructions reported), Reported on 07/24/2023 metFORMIN HCl 500 MG Oral Tablet (Glucophage)Indica tions:Type 2 diabetes mellitus with hemoglobin A1c goal of less than 7.0% (HCC) TAKE TWO TABLETS BY MOUTH EVERY MORNING WITH BREAKFAST AND ONE TABLET BY MOUTH EVERY EVENING WITH MEAL 270 Tablet 1 07/15/2023 5 Active Simvastatin 20 MG Oral Tablet (Zocor)Indications :Dyslipidemia, goal LDL below 100 TAKE ONE TABLET BY MOUTH AT BEDTIME 90 Tablet 1 07/15/2023 5 Active Famotidine 40 MG Oral Tablet (Pepcid) TAKE ONE TABLET BY MOUTH EVERY DAY 90 Tablet 1 07/15/2023 5 Active hydroCHLOROthiazid e 25 MG Oral Tablet (Hydrodiuril)Indic ations:HTN, goal below 140/80 TAKE ONE TABLET BY MOUTH EVERY DAY 90 Tablet 1 07/15/2023 5 Active Citalopram Hydrobromide 20 MG Oral Tablet (CeleXA)Indication s:Adjustment disorder with depressed mood TAKE ONE TABLET BY MOUTH EVERY DAY 100 Tablet 3 07/16/2023 5 Active Triamcinolone Acetonide 0.5 % External Cream (Aristocort)Indica tions:Psoriasis Apply topically to affected area 2 times a day. To affected area. 60 g 5 07/24/2023 Active documented as of this encounter (statuses as of 07/26/2023) Active Problems Problem Noted Date Diagnosed Date Adjustment disorder with depressed mood 04/15/19 24 Caregiver burden 04/15/2023 Status post right hip replacement 03/22/2022 Personal history of fall 03/22/2022 DDD (degenerative disc disease), lumbar 09/19/19 19 Gastroesophageal reflux disease without esophagi tis 03/20/2018 Restless legs syndrome 09/18/2017 HTN, goal below 140/90 05/30/2015 Overview: Per HTN Protocol #27. DYSLIPIDEMIA, GOAL LDL BELOW 100 03/03/2009 Overview: Per Lipid Taxonomy. Type 2 diabetes mellitus wit h hemoglobin A1c goal of less than 8.0% 01/20/2009 Overview: Per Diabetes Taxonomy. 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 HTN, GOAL BELOW 130/80 04/20/200911/14 Overview: Per HTN Taxonomy. Dyslipidemia, goal to be determined 12/03/2008 03/03/2009 Overview: Per Lipid Taxonomy. Type 2 diabetes mellitus wit h hemoglobin A1c goal of less than 7.0% 10/15/2005 01/20/2009 Overview: Per Diabetes Taxonomy. ICD-10 update of inactive term HTN, goal below 140/90 08/14/200404/20 Overview: Per HTN Taxonomy. 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) documented as of this encounter (statuses as of 07/26/2023) Immunizations Name Administration Dates Next Due COVID-19 mRNA, LNP-s, No Pre serve, 2-Dose Series (Moderna) 06/27/2020,05/30/2020 H1N1 2009 Influenza, IM 04/04/2009 PPD 03/10/2022 Pneumococcal Conjugate Vacc, 13 Valent (Prevnar) 04/26/2015 Pneumococcal Polysaccharide PPV23 (Pneumovax) 01/28/2017,01/11/2006 Seasonal Influenza, PF, 6 M & above, IM , (FluLaval or Fluzone) 11/23/2016 Seasonal Influenza, Quadriva lent Hd (Fluzone Hd) 12/12/2022,12/11/2021 Seasonal Influenza, Quadriva lent, No Preserve, IM 03/06/2019,01/27/2018,12/24/2014 Seasonal Influenza, Split, I IV3, With Preserve, Inj 01/04/2016,12/02/2013,03/03/2013,01/24,01/23/2011,01/03/2010,12/03/2008 ,01/01/2008,01/28/2007,01/11/2006 TDAP (age 10 and older)(Boostrix) 10/29/2022 TDAP (age 11 and older)(Adacel) 06/02/2008 Varicella Zoster Vaccine (Adult) 03/03/2013 Zoster Vaccine Recombinant (Shingrix) 09/27/2021 ,03/24/2018 documented as of this encounter Social History Tobacco Use Types Packs/Day Years Used Date Smoking Tobacco: Former Cigarettes 0.5 10 0 03/25/1962 - 03/25/1972 Smokeless Tobacco: Never Alcohol Use Standard Drinks/Week Comments Yes 0 (1 standard drink = 0.6 oz pur e alcohol) Occ beer AUDIT-C Answer Date Recorded Frequency of Alcohol Consumption Monthly or less 08/27/2019 Average Number of Drinks Not on file 020 Frequency of Binge Drinking Not on file 06/2019 PHQ-2 Answer Date Recorded PHQ Adult Total Score 0 10/29/2022 Sex and Gender Information Value Date Recorded Sex Assigned at Male 06/20/2018 8:17 AM EDT Gender Identity Male 06/20/2018 8:17 AM EDT Sexual Orientation Straight 06/20/2018 8: 17 AM EDT Job Start Date Occupation Industry Not on file Not on file Not on file documented as of this encounter Plan of Treatment Upcoming Encounters Date Type Department Care Team (Latest Contact Info) Description 08/28/2023 7:35 AM EDT Hospital Encounter [facility], Operating Room [facility] [address] [place] [phone] Luis Armando Barrientos, DO [address] [place] [phone] 08/28/2023 7:35 AM EDT - 08/28/2023 8:00 AM EDT Surgery OR [facility], Operating Room [facility] [address] [place] [phone] Luis Armando Barrientos, DO [address] [place] [phone] INJECTION SPINE LUMBAR OR SACRAL 10/30/2023 11:00 AM EDT Office Visit Family [facility] [address] [address] Arin Tay PA-C [address] [place] [phone] Scheduled Procedures Name Priority Associated Diagnoses Date/Ti me INJECTION SPINE LUMBAR OR SACRAL Lumbar radiculopathy 08/28/2023 7:35 AM EDT Health Maintenance Due Date Last Done Comments COVID-19 Vaccine ( season) 2022 06/27/2020, 05/30/2020 HbA1c 10/07/2023 04/08/2023, 08/0 10/2022, 05/01/2022, Additional history exists Depression Screening 10/30/2023 10/29/2022, 07/19/2014 (Discussed) Diabetic Foot Exam 10/30/2023 10/29/2022, 0 09/27/2021, 09/27/2021, Additional history exists Albumin/Creatinine Ratio 10/31/20232 023, 10/04/2021, 03/04/2020, Additional history exists B-12 10/31/2023 10/30/2022, 09/22, 10/11/2020, Additional history exists GFR 10/31/2023 10/30/2022, 09/22, 10/11/2020, Additional history exists Diabetic Eye Exam 02/06/2024 02/05/2023, , 08/14/2022, Additional history exists DTaP,Tdap,and Td Vaccines (3 - Td or Tdap) 10/29/2032 10/29/2022, 06/02/2008 Pneumococcal Vaccine: 65+ Years Completed 01/28/2017, 04/26/2015, 01/11/2006 Zoster Vaccines Completed 09/27/2021, 02/24, 03/03/2013 Influenza Vaccine (FLU shot) Completed , 12/11/2021, 03/06/2019, Additional history exists GARDASIL-HPV IMMUNIZATION SERIES Aged Out No longer eligible based on patient's age to complete this topic Hepatitis B Aged Out No longer eligi ble based on patient's age to complete this topic MENINGOCOCCAL (MENACTRA/MENVEO) Aged Out No longer eligible based on patient's age to complete this topic documented as of this encounter Medical Devices Not on filedocumented as of this encounter Care Teams Computer Consultant Relationship Specialty Start Date End Date Jasvir Arin ALISTAIR [facility] [place] [id number] PCP - General Physician It Integration Architect 10/29/16 documented as of this encounter
--- OUTSIDE RECORDS SUMMARY | 2023-08-31 08:41 | External Medical Summary | Summary of Care ---
Author Name Unknown Organization [facility] Address [address] [place] [address] Phone [phone] Care Team Providers Care Dough Puncher Name Role Phone Jasvir Arin Charley ALISTAIR Primary Care Provider [phone] Reason for Visit * Auth/Cert Specialty Diagnoses / Procedures Referred By Clay t Referred To Contact Diagnoses Lumbar radiculopathy Lumbar radiculopathy [M54.16] Procedures INJECT DX/THER SUBSTANCE INTERLAMINAR LUMBAR/SACRAL W IMAGE GUIDE INJECTION SPINE LUMBAR OR SACRAL Luis Armando Barrientos DO [address] [place] [address] [facility] [address] [place] [address] Referral ID Status Reason Start Date Expiration Date Visits Re quested Visits Authorized [id number] Encounter Details Date Type Department Care Team (Latest Contact Info) Description 08/28/2023 6:51 AM EDT - 08/28/2023 8:27 AM EDT Hospital Encounter OR [facility], Operating Room [facility] [address] [place] [phone] Luis Armando Barrientos DO [address] [place] [phone] Discharge Disposition: Home - Self Care Allergies Active Allergy Reactions Criticality Noted Date Comments Penicillins 05/28/2000 documented as of this encounter (statuses as of 08/28/2023) Medications Medication Sig Dispensed Refills Start Date End Date Status Glisten SYSTEM W/DEVICE KITIndications:DM type 2 nursing care encounter (HCC) Use up to four times a day as directed 1 Kit 0 01/23/2011 Active aspirin enteric coated 81 MG TBEC Take 1 Tab by mouth daily. 100 Tab 3 07/25/2016 Active Glucose Blood In Vitro StripIndications:T ype 2 diabetes mellitus with hemoglobin A1c goal of less than 7.0% ([facility]) USE ONE STRIP TWO TIMES A DAY [...] hemoglobin A1c goal of less than 7.0% ([facility]) TAKE TWO TABLETS BY MOUTH EVERY MORNING [...] as of this encounter (statuses as of 08/28/2023) Active Problems Problem Noted Date Diagnosed Date [...] as of this encounter (statuses as of 08/28/2023) Resolved Problems Problem Noted Date Diagnosed Date [...] as of this encounter (statuses as of 08/28/2023) Immunizations Name Administration Dates Next Due COVID-19 [...] ,01/01/2008,01/28/2007,01/11/2006 TDAP (age 10 and older)(Boostrix) 10/29/2022 TDAP, Age 7 and older, IM (Adacel) 06/02/2008 Varicella Zoster Vaccine (Adult) 03/03/2013 Zoster [...] on file documented as of this encounter Last Filed Vital Signs Vital Sign Reading Time Taken Comments Blood Pressure 149/79 08/28/2023 8:05 AM EDT Pulse 80 08/28/2023 8:05 AM EDT Temperature 36.4 C (97.5 F) 08/28/2023 7:15 AM ED T Respiratory Rate 16 08/28/2023 8:05 AM EDT Oxygen Saturation 93% 08/28/2023 8:05 AM EDT Inhaled Oxygen Concentration - - Weight - - Height - - Body Mass Index - - documented in this encounter Discharge Instructions * Discharge Instr - AVS* Luis Armando Barrientos DO - 08/28/2023 8:06 AM EDT [facility] [address] [place] [address] Discharge Date: 08/28/2023 You may call [facility] at [phone] during business hours. For after-hours emergencies call 911. Your attending physician at the time of your discharge was: Luis Armando [facility] DO [address] [facility] [place] [address] The information below provides you with the instructions and the list of medications you need to betaking following discharge from the hospital. If you have any questions, please ask before leaving.Please carry this letter with you when you see your doctor in the clinic. Diet: Resume your normal diet If you are diabetic, follow your blood sugars closely for next 2-3 days as they are likely to be elevated. If you are having difficulty controlling your blood sugars call your family doctor or the physician that treats your diabetes. Activity: Do not engage in strenuous activity today Resume your normal activities tomorrow Do not soak in water for 24 hours. No swimming, hot tub or bath but showering is allowed. Do not use heat on the injection site for 24 hours. If uncomfortable ice may be helpful. Some injections may make your arms or legs weak for a few hours. Be extremely careful when walking or changing positions that you do not fall. Have someone assist you for the next 6 hours. If weakness or numbness becomes progressive CALL IMMEDIATELY or GO TO THE NEAREST EMERGENCY ROOM Do not restart physical therapy or chiropractic manipulation until 48 hours after your injection Call : If weakness or numbness suddenly becomes worse or become progressive If the injection site becomes red, swollen, warm to the touch, begins to bleed or drain fluid, or is excessively painful. If you have any questions Medications: Resume all the medications you were taking prior to your injection. Resume your anticoagulants tomorrow unless otherwise instructed by your family physician, corporate trust officer or the anticoagulation clinic. Additional Instructions: Please monitor for symptoms of high blood sugar such as frequent urination, flu-like symptoms and changes in your vision as well as blood sugar values >250mg/dL. If these occur, please report to your PCP and/or UrgentCare or the Emergency Department immediately. Driving: You may resume driving in 12-24 hours if no weakness is noted . Date you may return to work or school: N/A Follow Up: Please make a follow-up telephone appointment with our nursing staff in 4-6 weeks. documented in this encounter Progress Notes * Luis Armando Barrientos DO - 08/28/2023 8:06 AM EDT [facility] [address] [place] [phone] OUTPATIENT SURGERY DISCHARGE SUMMARY NOTE Name: Adán Liu Location: OR [facility]/OR Date: 08/28/2023 Time: 8:06 AM Surgery Date: 08/28/2023 Procedure: INJECTION SPINE LUMBAR OR SACRAL No laterality found for procedure #1 Surgeon: Luis Armando Barrientos DO Discharge Diagnosis: lumbar radicular pain, spinal stenosis After examination of this patient, I have determined he is ready for discharge to home when the patient meets criteria. Discharge instructions were given to the patient. Luis Armando Barrientos DO OR [facility], Operating Room [facility] [address] [facility] [place] [phone] documented in this encounter H&P Notes * Luis Armando Barrientos DO - 08/28/2023 7:40 AM EDT Interventional Pain H&P Subjective: History of Present Illness: Adán Liu is a 78 year old year-old male with a past medical history significant for lumbar radicualr pain who is presenting for LESI to improve his pain and function. his pain is essentially unchanged since our last office visit with him. ASA 3 AW nml Review of Systems: A focused 12-pt ROS were of reviewed with the patient including difficulty with sleep, snoring, aspiration history, dysphagia, stomach pain, nausea and vomiting, severe headaches, confusion, open skin lesions or wounds, chest pain, shortness of breath, excessive thirst, somnolence, dysuria, incomplete bladder emptying, easy bruising, recent clotting problems or bleeding, depression or rushed thoughts unless noted previously. Review of patient's allergies indicates: Allergen Reactions Penicillins Medications, Past Medical History, Past Surgical History reviewed and documented in Epic. See detailed report if needed. Pertinent Labs/Test Results: No results found for: "INR" No results found for: "CREATININE" Hemoglobin A1C (%) Date Value 04/08/2023 6.7 (H) 03/04/2020 7.1 (H) No results found for: "AMPHETAMINE", "BARBITURATES", "BENZODIAZEPINES", "BUPRENORPHINE", "METHADONE", "OPIATES", "OXYCODONE", "PHENCYCLIDINE", "CANNABINOIDS", "TOX SCREEN", "URINE", "TOX SCREEN-SERUM", "TOX SCREEN, URINE" Imaging: I personally reviewed the imaging and my findings were . FLUORO INTERVENTIONAL PAIN PROCEDURE NONBILLABLE This procedure will not be read by a Radiologist. Please see operative note. Objective Physical Exam: Vital Signs: BP 137/71 | Pulse 83 | Temp 36.4 C (97.5 F) (Tympanic) | Resp 14 | SpO2 94% There is no height or weight on file to calculate BMI. General: No apparent distress. Eyes: pupils equal and round, sclera white, pupils midsize. ENT: mucous membranes moist Resp: Non-labored breathing CV: Extremities warm and well-perfused. Psych: Oriented; affect warm, insight good. Skin: No rashes or lesions appreciated on exposed skin Neuromuscular Exam: Facet loading neg, SLR pos, TTT over lumbar spine Assessment: Adán is a 78 year old year-old male with: Lumbar spinal stenosis Plan: The patient is undergoing R LESI today to alleviate his pain and improve his function. The risks, benefits and alternatives to the procedure were reviewed at length and the patient was provided the opportunity to ask questions which were answered to their voiced understanding. Following this comprehensive discussion, the patient opted to proceed. The patient was consented to the procedure following this comprehensive conversation. Luis Armando Barrientos DO OR [facility], Operating Room [address] [phone] documented in this encounter Nursing Notes * Madeleine Shetty RN - 08/28/2023 8:10 AM EDT Pt tolerated procedure well. Pt has been visited by Dr. Barrientos. Discharge instructions reviewed with pt and pt has verbalized understanding of these teachings. Pt ready for discharge. * Ne Palomares RN - 08/28/2023 8:03 AM EDT Band aid applied to area. Patient transferred to PACU 11 via wheelchair * Ne Palomares RN - 08/28/2023 7:59 AM EDT Patient tolerating pain management injection well. documented in this encounter OR Notes * OR Surgeon - Luis Armando Barrientos DO - 08/28/2023 8:04 AM EDT INTERLAMINAR LUMBAR EPIDURAL STEROID INJECTION DATE: 08/28/2023 PHYSICIAN: Luis Armando Barrientos DO PREOPERATIVE DIAGNOSIS: Lumbar spondylosis with lumbar radiculopathy. POSTOPERATIVE DIAGNOSIS: Lumbar spondylosis with lumbar radiculopathy. PROCEDURE PERFORMED: L4/5 interlaminar epidural steroid injection on the right side. Fluoroscopy for precise needle placement. ANESTHESIA: Local infiltration with 1% lidocaine. MONITORS: Automatic blood pressure cuff, pulse oximetry. There was no retail sales assistant, EBL or drains placed during this procedure. INDICATIONS: I had the pleasure of seeing Adán Liu ([id number]) in the pain management clinic at the the [facility] today. Adán Liu is a 78 year old year-old malehas a history of lumbar radiculopathy. he is here today for an interlaminar lumbar epidural steroidinjection today. MEDICATIONS: No current facility-administered medications for this encounter. ALLERGIES: Review of patient's allergies indicates: Allergen Reactions Penicillins REVIEW OF SYSTEMS: Negative for fever, chills, chest pain, SOB, bleeding abnormalities, nausea, vomiting, diarrhea, worsening edema, or new rashes. FOCUSED PHYSICAL EXAMINATION: The patient is awake, alert and oriented, and is in no acute distress. Vital signs are stable. The patient is afebrile. The rest of the PE is essentially unchanged from the patient's recent visit to our office. I explained the procedure to the patient including the risks, benefits and alternatives to the procedure. The risks discussed with the patient included but were not limited to: bleeding, infection, and damage to surrounding nerves, tissues, and organs, paralysis, increased pain, pain at the site ofinjection, allergic reaction, blood pressure instability, seizures, heart block, headaches, increase in blood sugar, worsening of glaucoma, blindness, manic episodes, mood instability, . Alternatives to the procedure were also explained and include: do nothing, surgery, medications, and physical therapy. The patient verbalized understanding and was willing to proceed. PROCEDURE IN DETAIL: An informed consent was obtained. The patient was taken to the procedure room,was positively identified by the staff and attending physician. The patient was positioned prone onthe procedure bed. Vital signs were monitored as above and remained stable throughout the procedure. The skin was prepped and draped in a standard sterile fashion. A surgical pause time-out was performed and agreed upon by the members of the team. Fluoroscopic view of the lumbar spine was obtained and the area of interest was identified. The skin and subcutaneous tissues were anesthetized using 1% lidocaine and 25-gauge 1-1/2 inch needle. After that, a 20-gauge, 3.5-inch epidural needle was advanced towards the L4/5 interlaminar window in the right paramedian position. AP, contralateral oblique and lateral views were used to assess appropriate needle position. Loss of resistance to air technique was utilized and was obtained at 7 cmfrom the skin. The needle's position was additionally verified by injecting radiopaque dye, which showed spread of the dye in the epidural space in AP and lateral views. After negative aspiration forCSF and blood, 40 mg of Kenalog diluted in 2 mL of 1% lidocaine and 1mL of sterile preservative free normal saline was injected into the epidural space. The needle was withdrawn. The patient tolerated the procedure well. COMPLICATIONS: None. DISPOSITION: No follow-ups on file. 1. Return to clinic in 1-2 months for follow-up evaluation, sooner as needed. 2. Resume activity as tolerated. 3. Patient can drive after 12-24 hours if no weakness noted. 4. The patient will monitor their blood glucose over the next week as instructed and was advised tocontact us if the reading is greater than 250mg/dL or if they develop any signs or symptoms of hyperglycemia. Luis Armando Barrientos DO OR [facility], Operating Room [facility] [address] [facility] [place] [phone] documented in this encounter Plan of Treatment Upcoming Encounters Date Type Department Care Team (Late st Contact Info) Description 09/25/2023 11:00 AM EDT Scheduled Telephone [facility], [place] [address] [place] [phone] [place] Nurse Phone Call Interventional [facility] [place] [address] [place] [phone] 10/30/2023 11:00 AM EDT Office Visit Family Practice [facility] [place] [address] [facility] [place] [address] Jasvir Arin ALISTAIR [place] [address] [place] [phone] Scheduled Procedures Name Priority Associated Diagnoses Date/Ti me INJECTION SPINE LUMBAR OR SACRAL Lumbar radiculopathy 08/28/2023 7:52 AM EDT Health Maintenance Due Date Last [...] Not on filedocumented as of this encounter Procedures Procedure Name Priority Date/Time Associated Diagnosis Comments FLUORO INTERVENTIONAL PAIN PROCEDURE NONBILLABLE Routine 08/28/2023 8:10 AM EDT documented in this encounter Results * FLUORO INTERVENTIONAL PAIN PROCEDURE NONBILLABLE (08/28/2023 8:10 AM EDT) Narrative Scheduling, Silent - 08/28/2023 8:11 AM EDT This procedure will not be read by a Radiologist. Please see operative note. Luis Armando JACOBS FLUOROSCOPY documented in this encounter Administered Medications Inactive Administered Medications - up to 3 most recent administrations Medication Order MAR Action Action Date Dose Rate Site Iohexol (Omnipaque 180) inj 0.5 mL 0.5 mL, Injection, ONCE, On Sat08/28/23 at 0745, For 1 dose Given 08/28/2023 8:02 AM EDT 2 mL lidocaine 1 % inj 20 mg 20 mg (2 mL), Subcutaneous, ONCE, On Sat08/28/23 at 0745, For 1 dose Given 08/28/2023 7:59 AM EDT 5 mL O ther-Specify Triamcinolone Acetonide (Kenalog) 40 MG/ML inj 40 mg 40 mg, Injection, ONCE, On Sat08/28/23 at 0745, For 1 dose Given 08/28/2023 8:02 AM EDT 40 mg documented in this encounter Active and Recently Administered Medications Times are shown in EDT. Scheduled Medication Order 08/26/2023 08/27/2023 08/28/2023 Iohexol (Omnipaque 180) inj 0.5 mL (COMPLETED) 0.5 mL, Injection, ONCE, On Sat08/28/23 at 0745, For 1 dose 0802 (Given - Provid er: Ne Palomares RN) lidocaine 1 % inj 20 mg (COMPLETED) 20 mg (2 mL), Subcutaneous, ONCE, On Sat08/28/23 at 0745, For 1 dose 0759 (Given - Provid er: Ne Palomares RN) Triamcinolone Acetonide (Kenalog) 40 MG/ML inj 40 mg (COMPLETED) 40 mg, Injection, ONCE, On Sat08/28/23 at 0745, For 1 dose 0802 (Given - Provid er: Ne Palomares RN) documented in this encounter Care Teams Dough Puncher Relationship Specialty Start Date End Date JasvirJune ALISTAIR [place] [address] [place], [place] [address] PCP - General Physician Rv Technician 10/29/16 documented as of this encounter
--- OUTSIDE RECORDS SUMMARY | 2023-08-31 08:41 | External Medical Summary | Summary of Care ---
Author Name Unknown Organization [facility] Address [address] [place] [address] Phone [phone] Care Team Providers Care Element Winding Machine Tender Name Role Phone Arin Tay PA-C Primary Care Provider [phone] Reason for Visit * Reason Comments Rash BLE Encounter Details Date Type Department Care Team (Late st Contact Info) Description 07/24/2023 8:00 AM EDT Office Visit Family Practice [facility] [address] [place] [address] Arin Tay PA-C [address] [place] [address] Psoriasis*; Type 2 diabetes mellitus with hemoglobin A1c goal of less than 8.0% ([facility]); HTN, goal below 140/90 Allergies Active Allergy Reactions Criticality Noted Date Comments Penicillins 05/28/2000 documented as of this encounter (statuses as of 07/24/2023) Medications Medication Sig Dispensed Refills Start Date End Date Status [facility] W/DEVICE KITIndications:DM type 2 nursing care encounter (HCC) Use up to four times a day as directed 1 Kit 0 1 Active aspirin enteric coated 81 MG TBEC Take 1 Tab by mouth daily. 100 Tab 3 7 Active Glucose Blood In Vitro StripIndications: Type 2 diabetes mellitus with hemoglobin A1c goal of less than 7.0% (HCC) USE ONE STRIP TWO TIMES A DAY 200 Strip 3 3 08/31/19 24 Active Carbidopa-Levodop a 25-250 MG Oral Tablet (Sinemet) TAKE ONE TABLET BY MOUTH AT BEDTIME 90 Tablet 3 3 10/21/19 24 Active Lisinopril 20 MG Oral Tablet (Prinivil)Indicat ions:HTN, goal below 140/90 Take 1 Tablet by mouth in the morning. 30 Tablet 11 3 Active Silver sulfADIAZINE 1 % External Cream (Silvadene) Apply topically to affected area daily. Apply to leg wound. 50 g 1 4 Active Gabapentin 300 MG Oral Capsule (Neurontin) [...] Advance only as tolerated. 180 Capsule 2 4 Active Additional Information Patient taking differently: 600 mg Oral BID (.AM/PM), (No instructions reported), Reported on 07/24/2023 metFORMIN HCl 500 MG Oral Tablet (Glucophage)Indic ations:Type 2 diabetes mellitus with hemoglobin A1c goal of less than 7.0% (HCC) TAKE TWO TABLETS BY MOUTH EVERY MORNING WITH BREAKFAST AND ONE TABLET BY MOUTH EVERY EVENING WITH MEAL 270 Tablet 1 4 07/15/19 25 Active Simvastatin 20 MG Oral Tablet (Zocor)Indication s:Dyslipidemia, goal LDL below 100 TAKE ONE TABLET BY MOUTH AT BEDTIME 90 Tablet 1 4 07/15/19 25 Active Famotidine 40 MG Oral Tablet (Pepcid) TAKE ONE TABLET BY MOUTH EVERY DAY 90 Tablet 1 4 07/15/19 25 Active hydroCHLOROthiazi de 25 MG Oral Tablet (Hydrodiuril)Alysa cations:HTN, goal below 140/80 TAKE ONE TABLET BY MOUTH EVERY DAY 90 Tablet 1 4 07/15/19 25 Active Citalopram Hydrobromide 20 MG Oral Tablet (CeleXA)Indicatio ns:Adjustment disorder with depressed mood TAKE ONE TABLET BY MOUTH EVERY DAY 100 Tablet 3 4 07/16/19 25 Active Triamcinolone Acetonide 0.5 % External Cream (Aristocort)Indic ations:Psoriasis Apply topically to affected area 2 times a day. To affected area. 60 g 5 4 Active Triamcinolone Acetonide 0.1 % External Cream (Aristocort)Indic ations:Plaque psoriasis Apply topically to affected area 2 times a day. To affected area. 80 g 5 4 07/24/19 24 Discontinued documented as of this encounter (statuses as of 07/24/2023) Active Problems Problem Noted Date Diagnosed Date [...] as of this encounter (statuses as of 07/24/2023) Resolved Problems Problem Noted Date Diagnosed Date [...] as of this encounter (statuses as of 07/24/2023) Immunizations Name Administration Dates Next Due COVID-19 [...] Sign Reading Time Taken Comments Blood Pressure 134/76 07/24/2023 8:02 AM EDT Pulse 78 07/24/2023 8:02 AM EDT Temperature 36 C (96.8 F) 07/24/2023 8:02 AM EDT Respiratory Rate 18 07/24/2023 8:02 AM EDT Oxygen Saturation - - Inhaled Oxygen Concentration - - Weight 103.9 kg (229 lb) 07/24/2023 8:02 AM EDT Height - - Body Mass Index 29.4 05/01/2023 10:15 AM EST documented in this encounter Progress Notes * Arin Tay PA-C - 07/24/2023 8:21 AM EDT Images from the original note were not included. History of Present Illness Adán Liu is a 78 year old male that presents for Rash (BLE) Patient is a 78 year old male who presents with a rash on both legs which has been present for about a month. Started with one spot. Does not itch. Has spread. Has been using triamcinalone ointment. Works best if applies a band aid too. Also concerned after he had last injection for his back his blood sugar spike to 400s and he ended up in the emergency room he is interested in having some kind of plan to prevent this happening again. Physical Exam Vitals: 07/24/23 0802 Temp: 36 C (96.8 F) Pulse: 78 Resp: 18 BP: 134/76 BP Readings from Last 3 Encounters: 07/24/23 134/76 05/28/23 174/95 05/15/23 152/87 Wt Readings from Last 3 Encounters: 07/24/23 103.9 kg (229 lb) 05/01/23 103.9 kg (229 lb) 04/15/23 102.7 kg (226 lb 8 oz) General: alert, healthy, no distress, well nourished, well developed, comfortable, and cooperative Head: Normocephalic, No masses, lesions, tenderness or abnormalities Eye Exam: PERRLA, extraocular movements intact, conjunctiva are pink and non- injected, sclera clear Lungs: chest symmetric with normal AP diameter, no chest deformities noted, normal respiratory rateand rhythm, diaphragmatic excursion normal Skin: skin color, texture, turgor are normal, scattered erythematous base macular lesions noted on both lower extremities areas of dryness and flakiness appear on the surface. I have reviewed the following results: Hemoglobin A1C Assessment and Plan Psoriasis (Primary) - Triamcinolone Acetonide 0.5 % External Cream (Aristocort); Apply topically to affected area 2 times a day. To affected area. Type 2 diabetes mellitus with hemoglobin A1c goal of less than 8.0% ([facility]) - HEMOGLOBIN A1C; Future; Expected date: 07/24/2023 HTN, goal below 140/90 Wrap-Up Time: I spent a total of 30-39 minutes (exact time 35 mins) on the date of service in preparation, delivery, and documentation of the care provided to Adán Liu excluding any time spent in the performance of separately billed services. documented in this encounter Nursing Notes * Shanon Alvarez LPN - 07/24/2023 8:01 AM EDT Patient has a rash on his legs. Right leg worse than the left. Thinks he's had it about a month or so. documented in this encounter Plan of Treatment Upcoming Encounters Date Type Department Care Team (Latest Contact Info) Description 08/28/2023 7:35 AM EDT Hospital Encounter [facility] Operating [facility] [address] [place] [phone] Luis Armando Barrientos DO [address] [place] [phone] 08/28/2023 7:35 AM EDT - 08/28/2023 8:00 AM EDT Surgery [facility], Operating Room [facility] [address] [place] [phone] Luis Armando Barrientos, [address] [place] [phone] INJECTION SPINE LUMBAR OR SACRAL 10/30/2023 11:00 AM EDT Office Visit [facility] [address] [facility] [place] [address] Arin Tay PA-C [address] [facility] [place] [address] Scheduled Orders Name Type Priority Associated Diagnoses Orde r Schedule HEMOGLOBIN A1C Lab Routine Type 2 diabetes mellitus with hemoglobin A1c goal of less than 8.0% (HCC) Expected: 07/24/2023 (Approximate), Expires: 07/23/2024 Scheduled Procedures Name Priority Associated Diagnoses Date/Ti me INJECTION SPINE LUMBAR OR SACRAL Lumbar radiculopathy 08/28/2023 7:35 AM EDT Health Maintenance Due Date Last Done Comments COVID-19 Vaccine ( season) 2022 06/27/2020, 05/30/2020 HbA1c 10/07/2023 04/08/2023, 08/0 10/2022, 05/01/2022, Additional history exists Depression Screening 10/30/2023 10/29/2022, 07/19/2014 (Discussed) Diabetic Foot Exam 10/30/2023 10/29/2022, 0 09/27/2021, 09/27/2021, Additional history exists Albumin/Creatinine Ratio 10/31/2023 023, 10/04/2021, 03/04/2020, Additional history exists B-12 [...] Not on filedocumented as of this encounter Visit Diagnoses Diagnosis Psoriasis- Primary Other psoriasis Type 2 diabetes mellitus with hemoglobin A1c goal of less than 8.0% (HCC) HTN, goal below 140/90 Unspecified essential hypertension Lumbar radiculopathy Thoracic or lumbosacral neuritis or radiculitis, unspecified documented in this encounter Care Teams Element Winding Machine Tender Relationship Specialty Start Date End Date Jasvir June ALIST[facility]IR [place] [address] [place] [address] PCP - General Physician Community Engagement Representative 10/29/16 documented as of this encounter
--- OUTSIDE RECORDS SUMMARY | 2023-08-31 08:42 | External Medical Summary | Summary of Care ---
Author Name Unknown Organization [facility] Address [address] [place] [address] Phone [phone] Care Team Providers Care Battery Repairer Name Role Phone Arin Tay PA-C Primary Care Provider Reason for Visit * Reason Comments Back Pain Encounter Details Date Type Department Care Team (Late st Contact Info) Description 07/22/2023 3:30 PM EDT [facility] [address] [facility] [place] [address] Kala Mendoza PA-C [address] [place] [address] Lumbar radicular pain* Allergies Active Allergy Reactions Criticality Noted Date Comments Penicillins 05/28/2000 documented as of this encounter (statuses as of 07/22/2023) Medications Medication Sig Dispensed Refills Start Date End Date Status [employer] SYSTEM W/DEVICE KITIndications:DM type 2 nursing care encounter (HCC) Use up to four times a day as directed 1 Kit 0 01/23/2011 Active aspirin enteric coated 81 MG TBEC Take 1 Tab by mouth daily. 100 Tab 3 07/25/2016 Active Glucose Blood In Vitro StripIndications:Ty pe 2 diabetes mellitus with hemoglobin A1c goal of less than 7.0% (HCC) USE ONE STRIP TWO TIMES A DAY 200 Strip 3 08/25/2022 08/31/2023 Active Carbidopa-Levodopa 25-250 MG Oral Tablet (Sinemet) TAKE ONE TABLET BY MOUTH AT BEDTIME 90 Tablet 3 08/22/2022 10/21/2023 Active Lisinopril 20 MG Oral Tablet (Prinivil)Indicatio ns:HTN, goal below 140/90 Take 1 Tablet by mouth in the morning. 30 Tablet 11 02/22/2023 Active Triamcinolone Acetonide 0.1 % External Cream (Aristocort)Indicat ions:Plaque psoriasis Apply topically to affected area 2 times a day. To affected area. 80 g 5 04/15/2023 Active Silver sulfADIAZINE 1 % External Cream [...] as tolerated. 180 Capsule 2 05/23/2023 Active metFORMIN HCl 500 MG Oral Tablet (Glucophage)Indicat ions:Type 2 diabetes mellitus with hemoglobin A1c goal of less than 7.0% (HCC) TAKE TWO TABLETS BY MOUTH EVERY MORNING WITH BREAKFAST AND ONE TABLET BY MOUTH EVERY EVENING WITH MEAL 270 Tablet 1 07/15/2023 07/14/2024 Active Simvastatin 20 MG Oral Tablet (Zocor)Indications: Dyslipidemia, goal LDL below 100 TAKE ONE TABLET BY MOUTH AT BEDTIME 90 Tablet 1 07/15/2023 07/14/2024 Active Famotidine 40 MG Oral Tablet (Pepcid) TAKE ONE TABLET BY MOUTH EVERY DAY 90 Tablet 1 07/15/2023 07/14/2024 Active hydroCHLOROthiazide 25 MG Oral Tablet (Hydrodiuril)Indica tions:HTN, goal below 140/80 TAKE ONE TABLET BY MOUTH EVERY DAY 90 Tablet 1 07/15/2023 07/14/2024 Active Citalopram Hydrobromide 20 MG Oral Tablet (CeleXA)Indications :Adjustment disorder with depressed mood TAKE ONE TABLET BY MOUTH EVERY DAY 100 Tablet 3 07/16/2023 07/15/2024 Active documented as of this encounter (statuses as of 07/22/2023) Active Problems Problem Noted Date Diagnosed Date [...] as of this encounter (statuses as of 07/22/2023) Resolved Problems Problem Noted Date Diagnosed Date [...] as of this encounter (statuses as of 07/22/2023) Immunizations Name Administration Dates Next Due COVID-19 [...] on file documented as of this encounter Progress Notes * Kala Mendoza PA-C - 07/22/2023 3:26 PM EDT Name: Adán Liu Date: 07/22/2023 HPI: Adán Liu is a 78 year old male known to the [facility] Management clinic presents for followup due to low back pain. See encounter 06/13/23, scheduled interlaminar CECILIA. Initially patient did not remember this conversation. He is concerned for further injections as previous injection caused his blood sugars to increase greater than 400 and prompted ED evaluation at [facility]. Daughter inquiring about possible PT referral. In the past three to four weeks, he has noticed some pain relief - ? If related to injection and orincreased activity, trying to get around the house more. Locates pain R low back and buttock that radiates to lateral thigh and calf into foot. Rates pain 5/10 and is constant in nature. Baseline paresthesia R LE, affecting all digits. Baseline weakness R LE, using cane to ambulate. Denies LEFT LE radicular pain. Denies bowel/bladder dysfunction. Using tylenol for pain relief. + DM + aspirin 81 mg Presents with , sister and daughter. 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 100 Tab 3 Carbidopa-Levodopa 25-250 MG Oral Tablet (Sinemet) TAKE ONE TABLET BY MOUTH AT BEDTIME 90 Tablet 3 Lisinopril 20 MG Oral Tablet (Prinivil) Take 1 Tablet by mouth in the morning. 30 Tablet 11 Gabapentin 300 MG Oral Capsule (Neurontin) Take 1 capsule by mouth in the morning and afternoon and2 capsules at night x 1 week. Then advance as tolerated to 2 capsules by mouth in the morning, 1 capsule midday and 2 capsules at night x 1 week. If additional relief desired, then advance to 2 capsules three times daily. Advance only as tolerated. 180 Capsule 2 metFORMIN HCl 500 MG Oral Tablet (Glucophage) TAKE TWO TABLETS BY MOUTH EVERY MORNING WITH BREAKFAST AND ONE TABLET BY MOUTH EVERY EVENING WITH MEAL 270 Tablet 1 Simvastatin 20 MG Oral Tablet (Zocor) TAKE ONE TABLET BY MOUTH AT BEDTIME 90 Tablet 1 Famotidine 40 MG Oral Tablet (Pepcid) TAKE ONE TABLET BY MOUTH EVERY DAY 90 Tablet 1 hydroCHLOROthiazide 25 MG Oral Tablet (Hydrodiuril) TAKE ONE TABLET BY MOUTH EVERY DAY 90 Tablet 1 Citalopram Hydrobromide 20 MG Oral Tablet (CeleXA) TAKE ONE TABLET BY MOUTH EVERY DAY 100 Tablet 3 [employer] SYSTEM W/DEVICE KIT Use up to four times a day as directed 1 Kit 0 Glucose Blood In Vitro Strip USE ONE STRIP TWO TIMES A DAY 200 Strip 3 Triamcinolone Acetonide 0.1 % External Cream (Aristocort) Apply topically to affected area 2 times a day. To affected area. 80 g 5 Silver sulfADIAZINE 1 % External Cream (Silvadene) Apply topically to affected area daily. Apply toleg wound. 50 g 1 No current facility-administered medications for this visit. Review of patient's allergies indicates: Allergen Reactions Penicillins ROS: CONSTITUTIONAL: Denies anorexia, weight loss, fever, night sweats. RESPIRATORY: Denies shortness of breath, wheezing, productive cough. CARDIOVASCULAR: Denies chest pains, irregular heartbeat. HEME: Denies easy bruising and anticoagulation use. ROS EXAM: Remainder of ROS negative as discussed above in the HPI. PHYSICAL EXAM: There were no vitals taken for this visit. GENERAL: WD/WN male who is awake and alert. Does not appear to be in acute distress. MENTAL STATUS: Oriented x 3. Pleasant and cooperative with normal affect. STRENGTH: 5/5 in all major motor groups lower extremities bilaterally. SENSATION: Not formally tested. No gross sensory deficits lower extremities bilaterally. GAIT/COORDINATION: Gait is intact. Ambulates with assistance. ASSESSMENT: Lumbar radicular pain RECOMMENDATION: Continue with schedule interlaminar CECILIA, hopeful this may provide better benefit than TF approach that was used previously. Encouraged to keep journal after this injection. Needs bottom hoop driver, no prescription medication holds. Will use gabapentin as prescribed Currently only using QHS. Prescribed as TID - discussed slow titration, will use BID for one week Patient and family advised to monitor for potential daytime drowsiness. Declines formal PT referral. Discussed provider lead home exercise and stretching program including: lumbar press up, bird dog, curl up, pelvic tilt, knee to chest stretch and wall sits. Encouraged to complete program at least three times per week for twenty minutes. Will send copy of note to PCP, ?if medication adjustment can be made regarding upcoming steroid injection. Previous procedure did prompt him to have to go to ED. He is aware of such potential risk and again wishes to continue with schedule CECILIA. Has appointment with PCP later this week. I spent a total of 20-29 minutes (exact time 26 mins) on the date of service in preparation, delivery, and documentation of the care provided to Adán Liu excluding any time spent in the performance of separately billed services. Kala Mendoza PA-C 07/22/2023 documented in this encounter Nursing Notes * Helen Patricia LPN - 07/22/2023 3:25 PM EDT Patient here for right leg pain States minimal improvement from prev inj, scheduled for another inj in August documented in this encounter Plan of Treatment Upcoming Encounters Date Type Department Care Team (Latest Contact Info) Description 07/24/2023 8:00 AM EDT Office Visit Family Practice [facility] [place] [address] [facility] [place] [address] Arni Tay PA-C [address] [facility] [place] [place] [id number] 08/28/2023 7:35 AM EDT Hospital Encounter [facility], Operating Room [facility] [address] [place] [phone] Luis Armando Barrientos, [address] [place] [phone] 08/28/2023 7:35 AM EDT - 08/28/2023 8:00 AM EDT Surgery OR [facility], Operating Room [facility] [address] [place] [phone] Luis Armando Barrientos DO [address] [place] [id number] INJECTION SPINE LUMBAR OR SACRAL 10/30/2023 11:00 AM EDT [facility] [place] [address] [facility] [place] [address] Arin Tay PA-C [address] [facility] [place] [place] [address] Scheduled Procedures Name Priority Associated Diagnoses Date/Ti [...] as of this encounter Visit Diagnoses Diagnosis Lumbar radicular pain- Primary Thoracic or lumbosacral neuritis or radiculitis, unspecified Lumbar radiculopathy Thoracic or lumbosacral neuritis or radiculitis, unspecified documented in this encounter Care Teams Battery Repairer Relationship Specialty Start Date End Date Arin Tay PA-C [address] [place] [address] PCP - General Physician Weaver Hand 10/29/16 documented as of this encounter
--- OUTSIDE RECORDS SUMMARY | 2023-08-31 08:42 | External Medical Summary | Summary of Care ---
Author Name Unknown Organization [facility] Address [address] [place] [address] Phone [phone] Care Team Providers Care Retail Salesworker Name Role Phone Arin Tay PA-C Primary Care Provider [phone] Reason for Visit * Reason Comments Medication Refill Encounter Details Date Type Department Care Team (Late st Contact Info) Description 07/13/[address] [facility] [address] [place] [address] Arin Tya PA-C [address] [place] [address] Type 2 diabetes mellitus with hemoglobin A1c goal of less than 7.0% ([facility]); Dyslipidemia, goal LDL below 100; HTN, goal below 140/80 Allergies Active Allergy Reactions Criticality Noted Date Comments Penicillins 05/28/2000 documented as of this encounter (statuses as of 07/15/2023) Medications Medication Sig Dispensed Refills Start Date End Date Status [employer] SYSTEM W/DEVICE KITIndications:DM type 2 nursing care [...] BEDTIME 90 Tablet 3 08/22/2022 4 Active Citalopram Hydrobromide 20 MG Oral Tablet (CeleXA)Indication s:Adjustment disorder with depressed mood TAKE ONE TABLET BY MOUTH EVERY DAY 90 Tablet 1 01/16/2023 4 Active Lisinopril 20 MG Oral Tablet (Prinivil)Indicati ons:HTN, goal below 140/90 Take 1 Tablet by mouth in the morning. 30 Tablet 11 02/22/2023 Active Triamcinolone Acetonide 0.1 % External Cream (Aristocort)Indica tions:Plaque psoriasis Apply topically to affected area 2 [...] Active metFORMIN HCl 500 MG Oral Tablet (Glucophage)Indica tions:Type 2 diabetes mellitus with hemoglobin A1c goal of less than 7.0% (HCC) TAKE TWO TABLETS BY MOUTH EVERY MORNING WITH BREAKFAST AND TAKE ONE TABLET BY MOUTH EVERY EVENING WITH [...] DAY 90 Tablet 1 07/15/2023 5 Active metFORMIN HCl 500 MG Oral Tablet (Glucophage)Indica tions:Type 2 diabetes mellitus with hemoglobin A1c goal of less than 7.0% (HCC) TAKE TWO TABLETS BY MOUTH EVERY MORNING WITH BREAKFAST AND TAKE ONE TABLET BY MOUTH EVERY EVENING WITH MEAL 270 Tablet 1 01/14/2023 4 Discontinue d(Refill) Simvastatin 20 MG Oral Tablet (Zocor)Indications :Dyslipidemia, goal LDL below 100 TAKE ONE TABLET BY MOUTH AT BEDTIME 90 Tablet 1 01/14/2023 4 Discontinue d(Refill) Famotidine 40 MG Oral Tablet (Pepcid) TAKE ONE TABLET BY MOUTH EVERY DAY 90 Tablet 1 01/14/2023 4 Discontinue d(Refill) hydroCHLOROthiazid e 25 MG Oral Tablet (Hydrodiuril)Indic ations:HTN, goal below 140/80 TAKE ONE TABLET BY MOUTH EVERY DAY 90 Tablet 1 01/14/2023 4 Discontinue d(Refill) documented as of this encounter (statuses as of 07/15/2023) Active Problems Problem Noted Date Diagnosed Date [...] as of this encounter (statuses as of 07/15/2023) Resolved Problems Problem Noted Date Diagnosed Date [...] as of this encounter (statuses as of 07/15/2023) Immunizations Name Administration Dates Next Due COVID-19 [...] on file documented as of this encounter Miscellaneous Notes * Telephone Encounter - Robert Witt, [facility] - 07/15/2023 9:25 AM EDTSigned Prescriptions: Disp Refills metFORMIN HCl 500 MG Oral Tablet (Glucopha*270 Ta*1 Sig: TAKE TWO TABLETS BY MOUTH EVERY MORNING WITH BREAKFAST AND TAKE ONE TABLET BY MOUTH EVERY EVENING WITH MEAL Authorizing Provider: ARIN TAY Ordering User: ROBERT WITT Simvastatin 20 MG Oral Tablet (Zocor) 90 Tab*1 Sig: TAKE ONE TABLET BY MOUTH AT BEDTIME Authorizing Provider: ARIN TAY Ordering User: ROBERT WITT Famotidine 40 MG Oral Tablet (Pepcid) 90 Tab*1 Sig: TAKE ONE TABLET BY MOUTH EVERY DAY Authorizing Provider: ARIN TAY Ordering User: ROBERT WITT hydroCHLOROthiazide 25 MG Oral Tablet (Hyd*90 Tab*1 Sig: TAKE ONE TABLET BY MOUTH EVERY DAY Authorizing Provider: ARIN TAY Ordering User: ROBERT WITT * Telephone Encounter - 07/13/2023 12:14 AM EDTPending Prescriptions: Disp Refills metFORMIN HCl 500 MG Oral Tablet (Glucopha*270 Ta*1 Sig: TAKE TWO TABLETS BY MOUTH EVERY MORNING WITH BREAKFAST AND TAKE ONE TABLET BY MOUTH EVERY EVENING WITH MEAL Simvastatin 20 MG Oral Tablet (Zocor) 90 Tab*1 Sig: TAKE ONE TABLET BY MOUTH AT BEDTIME Famotidine 40 MG Oral Tablet (Pepcid) 90 Tab*1 Sig: TAKE ONE TABLET BY MOUTH EVERY DAY * Telephone Encounter - 07/13/2023 12:14 AM EDTPending Prescriptions: Disp Refills metFORMIN HCl 500 MG Oral Tablet (Glucopha*270 Ta*1 Sig: TAKE TWO TABLETS BY MOUTH EVERY MORNING WITH BREAKFAST AND TAKE ONE TABLET BY MOUTH EVERY EVENING WITH MEAL Simvastatin 20 MG Oral Tablet (Zocor) 90 Tab*1 Sig: TAKE ONE TABLET BY MOUTH AT BEDTIME Famotidine 40 MG Oral Tablet (Pepcid) 90 Tab*1 Sig: TAKE ONE TABLET BY MOUTH EVERY DAY hydroCHLOROthiazide 25 MG Oral Tablet (Hyd*90 Tab*1 Sig: TAKE ONE TABLET BY MOUTH EVERY DAY * Telephone Encounter - 07/13/2023 12:14 AM EDTPending Prescriptions: Disp Refills metFORMIN HCl 500 MG Oral Tablet (Glucopha*270 Ta*1 Sig: TAKE TWO TABLETS BY MOUTH EVERY MORNING WITH BREAKFAST AND TAKE ONE TABLET BY MOUTH EVERY EVENING WITH MEAL Simvastatin 20 MG Oral Tablet (Zocor) 90 Tab*1 Sig: TAKE ONE TABLET BY MOUTH AT BEDTIME documented in this encounter Plan of Treatment Upcoming Encounters Date Type Department Care Team (Latest Contact Info) Description 07/22/2023 3:30 PM EDT Office Visit Interventional Pain Center, [facility] [address] [place] [address] Kala Mendoza PA-C [address] [place] [address] 08/28/2023 7:35 AM EDT Hospital Encounter OR [facility], Operating Room [facility] [address] [place] [phone] Luis Armando Barrientos, [address] [place] [phone] 08/28/2023 7:35 AM EDT - 08/28/2023 8:00 AM EDT Surgery OR [facility], Operating Room [facility] [address] [place] [phone] Luis Armando Barrientos, [address] [place] [phone] INJECTION SPINE LUMBAR OR SACRAL 10/30/2023 11:00 AM EDT Office Visit Family Practice [facility] [place] [address] [place] [address] Arin Tay PA-C [address] [place] [address] Scheduled Procedures Name Priority Associated Diagnoses Date/Ti me INJECTION SPINE LUMBAR OR SACRAL Lumbar radiculopathy 08/28/2023 7:35 AM EDT Health Maintenance Due Date Last Done Comments COVID-19 Vaccine ( season) 2022 06/27/2020, 05/30/2020 HbA1c 10/07/2023 04/08/2023, 0810/2022, 05/01/2022, Additional history exists Depression Screening 10/30/2023 [...] as of this encounter Visit Diagnoses Diagnosis Type 2 diabetes mellitus with hemoglobin A1c goal of less than 7.0% (HCC) Dyslipidemia, goal LDL below 100 Other and unspecified hyperlipidemia HTN, goal below 140/80 Unspecified essential hypertension Lumbar radiculopathy Thoracic or lumbosacral neuritis or radiculitis, unspecified documented in this encounter Care Teams Retail Salesworker Relationship Specialty Start Date End Date Jasvir June Charley, [facility] [place] [address] PCP - General Physician Swimming Pool Installer And Servicer 10/29/16 documented as of this encounter
--- OUTSIDE RECORDS SUMMARY | 2023-08-31 08:42 | External Medical Summary | Summary of Care ---
Author Name Unknown Organization [facility] Address [address] [place] [address] Phone [phone] Care Team Providers Care Assembler Radio And Electrical Name Role Phone Arin Tay PA-C Primary Care Provider [phone] Reason for Visit * Reason Comments Medication Refill Encounter Details Date Type Department Care Team (Late st Contact Info) Description 07/15/2023 Refill Family Practice [facility] [address] [place] [address] Arin Tay PA-C [address] [place] [address] Adjustment disorder with depressed mood Allergies Active Allergy Reactions Criticality Noted Date Comments Penicillins 05/28/2000 documented as of this encounter (statuses as of 07/16/2023) Medications Medication Sig Dispensed Refills Start Date End Date Status [employer] SYSTEM W/DEVICE KITIndications:DM type 2 nursing care [...] DAY 100 Tablet 3 07/16/2023 5 Active Citalopram Hydrobromide 20 MG Oral Tablet (CeleXA)Indication s:Adjustment disorder with depressed mood TAKE ONE TABLET BY MOUTH EVERY DAY 90 Tablet 1 01/16/2023 4 Discontinue d(Refill) documented as of this encounter (statuses as of 07/16/2023) Active Problems Problem Noted Date Diagnosed Date [...] as of this encounter (statuses as of 07/16/2023) Resolved Problems Problem Noted Date Diagnosed Date [...] as of this encounter (statuses as of 07/16/2023) Immunizations Name Administration Dates Next Due COVID-19 [...] encounter Miscellaneous Notes * Telephone Encounter - Keysha Carroll [facility] - 07/16/2023 9:15 AM EDTSigned Prescriptions: Disp Refills Citalopram Hydrobromide 20 MG Oral Tablet *100 Ta*3 Sig: TAKE ONE TABLET BY MOUTH EVERY DAYAuthorizing Provider: ARIN TAY User: KEYSHA CARROLL----- documented in this encounter Plan of Treatment Upcoming Encounters Date Type Department Care Team (Latest Contact Info) Description 07/22/2023 3:30 PM EDT Office Visit Interventional Pain Center, [facility] [address] [place] [address] Kala Mendoza PA-C [address] [place] [address] 08/28/2023 7:35 AM EDT Hospital Encounter OR [facility], Operating Room [facility] [address] [place] [phone] Luis Armando Barrientos, [address] [place] [phone] 08/28/2023 7:35 AM EDT - 08/28/2023 8:00 AM EDT Surgery OR [facility], Operating Room [facility] [address] [place] [phone] Luis Armando Barrientos, [address] [place] [phone] INJECTION SPINE LUMBAR OR SACRAL 10/30/2023 11:00 AM EDT Office Visit Family Practice [place] [facility] [address] [facility] [place] [address] Arin Tay PA-C [address] [place] [address] Scheduled Procedures Name Priority Associated Diagnoses Date/Ti [...] 01/28/2017, 04/26/2015, 01/11/2006 Zoster Vaccines Completed 09/27/2021, 1203/2017, 03/03/2013 Influenza Vaccine (FLU shot) Completed , [...] as of this encounter Visit Diagnoses Diagnosis Adjustment disorder with depressed mood Lumbar radiculopathy Thoracic or lumbosacral neuritis or radiculitis, unspecified documented in this encounter Care Teams Assembler Radio And Electrical Relationship Specialty Start Date End Date Jasvir Arin [facility] [place] [address] [place], [place] [address] PCP - General Physician Paper Sheeter 10/29/16 documented as of this encounter
--- OUTSIDE RECORDS SUMMARY | 2023-08-31 08:42 | External Medical Summary | Summary of Care ---
Author Name Unknown Organization [facility] Address [address] [place] [address] Phone [phone] Care Team Providers Care Communications Planner Name Role Phone Arin Tay PA-C Primary Care Provider [phone] Reason for Visit * Reason Onset Date Comments Forms Request 2023 Encounter Details Date Type Department Care Team (Late st Contact Info) Description [address] [facility] [address] [place] [address] Arin Tay PA-C [address] [facility] [place] [address] Forms Request Allergies Active Allergy Reactions Criticality Noted Date Comments Penicillins 05/28/2000 documented as of this encounter (statuses as of 06/06/2023) Medications Medication Sig Dispensed Refills Start Date End Date Status [employer] SYSTEM W/DEVICE KITIndications:DM type 2 nursing care [...] MOUTH AT BEDTIME 90 Tablet 3 08/22/2022 08/22/2023 Active metFORMIN HCl 500 MG Oral Tablet (Glucophage)Indicat ions:Type 2 diabetes mellitus with hemoglobin A1c goal of less than 7.0% (HCC) TAKE TWO TABLETS BY MOUTH EVERY MORNING WITH BREAKFAST AND TAKE ONE TABLET BY MOUTH EVERY EVENING WITH MEAL 270 Tablet 1 01/14/2023 01/14/2024 Active Simvastatin 20 MG Oral Tablet (Zocor)Indications: Dyslipidemia, goal LDL below 100 TAKE ONE TABLET BY MOUTH AT BEDTIME 90 Tablet 1 01/14/2023 01/14/2024 Active Famotidine 40 MG Oral Tablet (Pepcid) TAKE ONE TABLET BY MOUTH EVERY DAY 90 Tablet 1 01/14/2023 01/14/2024 Active hydroCHLOROthiazide 25 MG Oral Tablet (Hydrodiuril)Indica tions:HTN, goal below 140/80 TAKE ONE TABLET BY MOUTH EVERY DAY 90 Tablet 1 01/14/2023 01/14/2024 Active Citalopram Hydrobromide 20 MG Oral Tablet (CeleXA)Indications :Adjustment disorder with depressed mood TAKE ONE TABLET BY MOUTH EVERY DAY 90 Tablet 1 01/16/2023 01/16/2024 Active Lisinopril 20 MG Oral Tablet (Prinivil)Indicatio [...] as tolerated. 180 Capsule 2 05/23/2023 Active documented as of this encounter (statuses as of 06/06/2023) Active Problems Problem Noted Date Diagnosed Date [...] as of this encounter (statuses as of 06/06/2023) Resolved Problems Problem Noted Date Diagnosed Date [...] as of this encounter (statuses as of 06/06/2023) Immunizations Name Administration Dates Next Due COVID-19 [...] encounter Miscellaneous Notes * Telephone Encounter - Adrian Alvarez OSA - 06/06/2023 3:30 PM EDT Form given to pts on 06-06-2023 * Telephone Encounter - Arin Tay PA-C - 06/03/2023 6:38 PM EDT Form signed * Telephone Encounter - Latisha Loco LPN - 05/31/2023 9:30 AM EST I placed the form for the patient's requested parking placard in June's folder for review and signature if agreeable. * Telephone Encounter - Arin Tay PA-C - 05/27/2023 7:10 PM EST Ok for placard. Please start form * Telephone Encounter - Juanita Martin LPN - 05/27/2023 1:02 PM EST Okay for handicap placard? * Telephone Encounter - Jessica Srivastava OSA - 2023 3:56 PM EST Patient would like Drs help obtaining a handicap parking tag, please give patient a call, ty documented in this encounter Plan of Treatment Upcoming Encounters Date Type Department Care Team (Late st Contact Info) Description 07/22/2023 3:30 PM EDT Office Visit Interventional Pain Center, [facility] [address] [place] [address] Kala Mendoza PA-C [address] [place] [address] 10/30/2023 11:00 AM EDT Office Visit Family Practice 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
--- OUTSIDE RECORDS SUMMARY | 2023-08-31 08:42 | External Medical Summary | Summary of Care ---
Author Name Unknown Organization [facility] Address [address] [address] Phone [phone] Care Team Providers Care Dispute Coordinator Name Role Phone JasvirArin ALISTAIR Primary Care Provider [phone] Encounter Details Date Type Department Care Team (Latest Contact Info) Description 05/28/2023 12:58 PM EST - 05/28/2023 2:12 PM EST Hospital Encounter OR [facility], Operating Room [facility] [address] [place] [phone] Luis Armando Barrientos, [address] [place] [phone] Discharge Disposition: Home - Self Care Allergies Active Allergy Reactions Criticality Noted Date Comments Penicillins 05/28/2000 documented as of this encounter (statuses as of 05/29/2023) Medications Medication Sig Dispensed Refills Start Date End Date Status [email or web address] SYSTEM W/DEVICE KITIndications:DM type 2 nursing care [...] as of this encounter (statuses as of 05/29/2023) Active Problems Problem Noted Date Diagnosed Date [...] as of this encounter (statuses as of 05/29/2023) Resolved Problems Problem Noted Date Diagnosed Date [...] as of this encounter (statuses as of 05/29/2023) Immunizations Name Administration Dates Next Due COVID-19 [...] Sign Reading Time Taken Comments Blood Pressure 174/95 05/28/2023 2:01 PM EST Pulse 76 05/28/2023 1:59 PM EST Temperature 36.4 C (97.5 F) 05/28/2023 1:59 PM ES T Respiratory Rate 16 05/28/2023 1:59 PM EST Oxygen Saturation 96% 05/28/2023 1:59 PM EST Inhaled Oxygen Concentration - - Weight - - Height - - Body Mass Index - - documented in this encounter Discharge Instructions * Discharge Instr - AVS* Luis Armando Barrientos DO - 05/28/2023 1:56 PM EST [facility] [address] [place] [address] Discharge Date: 05/28/2023 You may call [facility] at [phone] during business hours. For after-hours emergencies call [phone]. Your attending physician at the time of your discharge was: Luis Armando Barrientos DO [address] [facility] [place] [address] The information below provides you with the [...] or GO TO THE NEAREST EMERGENCY ROOM Keep a diary of your pain until seen in the office to help us determine how effective the injectionwas Do not restart physical therapy or chiropractic [...] unless otherwise instructed by your family physician, talend developer or the anticoagulation clinic. Additional Instructions: Please [...] to work or school: N/A Follow Up: Follow-up with Dr. Barrientos or Kala Mendoza PA-C in 6-8 weeks via telehealth or in- person appointment per your preference. documented in this encounter Progress Notes * Luis Armando Barrientos DO - 05/28/2023 1:56 PM EST [facility] [place] [address] [facility] [address] OUTPATIENT SURGERY DISCHARGE SUMMARY NOTE Name: Adán Liu Location: OR [facility]/[place] Date: 05/28/2023 Time: 1:56 PM Surgery Date: 05/28/2023 Procedure: Procedure(s): INJECTION TRANSFORAMINAL EPIDURAL LUMBAR OR SACRAL No laterality found for procedure #1 Surgeon: Surgeon(s): Luis Armando Barrientos DO Discharge Diagnosis: lumbar radicular pain After examination of this patient, I have determined he is ready for discharge to home when the patient meets criteria. Discharge instructions were given to the patient. Luis Armando Barrientos DO OR [facility], Operating Room [facility] [address] [place] [address] documented in this encounter H&P Notes * Luis Armando Barrientos DO - 05/28/2023 1:24 PM EST Interventional Pain H&P Subjective: History of Present Illness: Adán Liu is a 78 year old year-old male with a past medical history significant for lumbar radicular pain who is presenting for right L4 TFESI to improve his pain and function. his [...] the imaging and my findings were . MRI L SPINE WO CONTRAST Narrative: EXAM: MRI L SPINE WO CONTRAST - 04/26/2023 HISTORY: PAIN RAD TO RLE X 2-3 WEEKS. NUMBNESS TOP OF R FOOT TECHNIQUE: Multiplanar multisequence MRI of the lumbar spine without contrast was performed. COMPARISON: Lumbar radiographs dated 04/16/2022. FINDINGS: There is mild straightening of the lumbar lordosis with mild dextrocurvature. Grade 1 retrolisthesis of L3 on L4 is noted. Vertebral body heights are preserved. Multilevel disc desiccation and disc height loss are noted associated with degenerative endplate changes at L2-L3. No suspicious osseous lesions are identified. The conus medullaris terminates normally L2 level. Small sacral perineural cysts are noted. Multilevel degenerative changes are noted, detailed below. By level: L1-2: Diffuse disc bulge with bilateral facet arthropathy is noted without significant spinal canalstenosis or neural foraminal narrowing. L2-3: Diffuse disc bulge superimposed with posterior endplate osteophytes and mild asymmetric left facet arthropathy contributes to partial effacement of the left lateral recess with mild spinal canal stenosis. There is also mild left neural foraminal narrowing. L3-4: Diffuse disc bulge with bilateral facet arthropathy contributes to mild bilateral neural foraminal narrowing. No significant spinal canal stenosis. L4-5: Diffuse disc bulge superimposed with a right subarticular/foraminal disc extrusion with cranial migration, contributes to moderate right neural foraminal narrowing and possibly abutting the exiting L4 nerve root. The extruded disc component measures up to 1.4 cm in craniocaudal dimension. Otherwise, no significant spinal canal stenosis or left neural foraminal narrowing. L5-S1: Diffuse disc bulge with posterior endplate osteophytes and bilateral facet arthropathy contribute to amuo-mn-gioxpldi bilateral neural foraminal narrowing. No significant spinal canal stenosis. Impression: IMPRESSION: 1. L4-L5 right subarticular/foraminal disc extrusion with cranial migration, possibly abutting the exiting L4 nerve root. Correlate for right-sided L4 radiculopathy. 2. Additional multilevel degenerative changes, detailed above. A request to the assistant professor of spanish was placed 04/29/2023, 1:11 pm to notify the ordering clinician that the report is available in [facility] for review. Objective Physical Exam: Vital Signs: BP 154/83 | Pulse 96 | Temp 36.4 C (97.5 F) (Tympanic) | Resp 20 | SpO2 96% There is no height or weight on [...] a 78 year old year-old male with: Right L4 radicular pain Plan: The patient is undergoing right L4 TFESI today to alleviate his pain and improve his function. The risks, benefits and alternatives to the procedure were reviewed at length and the patient was provided the opportunity to ask questions which were answered to their voiced understanding. Following this comprehensive discussion, the patient opted to proceed. The patient was consented to the procedurefollowing this comprehensive conversation. Luis Armando Barrientos DO OR [facility], Operating Room [facility] [address] [facility] [place] [address] documented in this encounter Nursing Notes * Rosa Maria Mullins RN - 05/28/2023 2:02 PM EST Patient to PACU II from pain injection. Patient tolerated injection well. Discharged instructions reviewed with patient. Dr. Barrientos visits patient. Ambulates well with his cane and reports " slightly improved pain level." * Ne Palomares RN - 05/28/2023 1:56 PM EST Band aid applied to area. Patient transferred to PACU 11 via wheelchair * Ne Palomares RN - 05/28/2023 1:45 PM EST Patient tolerating pain management injection well. * Rosa Maria Mullisn RN - 05/28/2023 1:17 PM EST Pt is here to see Dr. Barrientos and receive a pain injection. documented in this encounter OR Notes * OR Surgeon - Luis Armando Barrientos DO - 05/28/2023 1:55 PM EST LUMBAR TRANSFORAMINAL EPIDURAL STEROID INJECTION PHYSICIAN: Luis Armando Barrientos DO PREOPERATIVE DIAGNOSIS: Lumbosacral spondylosis with lumbosacral radiculopathy. POSTOPERATIVE DIAGNOSIS: Lumbosacral spondylosis with lumbosacral radiculopathy. PROCEDURE PERFORMED: 1. L4 transforaminal epidural steroid injection on the right side. 2. Fluoroscopy for precise needle placement. ANESTHESIA: Local infiltration with 1% lidocaine MONITORS: Automatic blood pressure cuff, pulse oximetry and ECG INDICATIONS: Adán Liu ([id number]) is a 78 year old year-old male with a history of lumbosacral radiculopathy who presents today for a right L4 transforaminal epidural steroid injection to alleviate his discomfort and improve his pain. MEDICATIONS: No current facility-administered medications for this [...] patient is afebrile. The rest of the physical examination is essentially unchanged from the patient's recent visit to our office. I explained the procedure to the patient including the risks, benefits and alternatives to the procedure. The risks discussed with the patient included but were not limited to: bleeding, infection, and damage to surrounding nerves, tissues, and organs, paralysis, increased pain, allergic reaction, blood pressure instability, seizures, heart block, headaches, increase in blood sugar, worsening of glaucoma, blindness, manic episodes, mood instability. Alternatives to the procedure were also explained and include: do nothing, surgery, medications, and physical therapy. The patient verbalized understanding and was willing to proceed. PROCEDURE IN DETAIL: An informed consent was obtained. The patient was taken to the procedure room,where the patient was positively identified by the staff and the attending physician. The patient was positioned on the procedure bed. The patient's vital signs were monitored as above and remained stable throughout the procedure. The skin was prepped and draped in the standard sterile fashion. A acuna rgical pause (time-out) was performed and was agreed upon by the members of the team. A view of theneuroforamen of L4 on the right side was acquired by ipsilaterally obliquing the image intensifier.The skin and subcutaneous tissues were anesthetized with 1% lidocaine using a 25-gauge 1-inch needle. After that, a 22-gauge, 5-inch spinal needle was advanced under the L4 pedicle on the right side. The needle's position was verified in both AP and lateral views. Additionally, the needle's position was verified by injecting radiopaque dye, 3 ml. That showed excellent spread of the dye along the nerve root and some spread into the epidural space. After additional negative aspiration, 10 mg of dexamethasone and 1mL of 1% lidocaine was injected onto the nerve root. The needle was withdrawn. The patient tolerated the procedure well. COMPLICATIONS: None. DISPOSITION: 1. Return to clinic in 1-2 months for follow-up evaluation, sooner as needed. 2. Resume activity as tolerated. 3. Patient can drive after 12-24 hours if no weakness noted. 4. Pt to monitor DM control per d/c instructions. Luis Armando Barrientos DO OR [facility], Operating Room [facility] [address] [place] [address] documented in this encounter Plan of Treatment Upcoming Encounters Date Type Department Care Team (Late st Contact Info) Description 07/22/2023 3:30 PM EDT Telemedicine Interventional Pain Center, [facility] [address] [place] [address] Kala Mendoza PA-C [address] [place] [address] 10/30/2023 11:00 AM EDT Office Visit Family Practice [facility] [place] [address] [place] [address] Arin Tay PA-C [address] [facility] [place] [id number] Health Maintenance Due Date Last Done Comments COVID-19 Vaccine (2022-24 season) 2022 06/27/2020, 05/30/2020 HbA1c 10/07/2023 04/08/2023, 08/10/2022, 05/01/2022, Additional history exists Depression Screening 10/30/2023 [...] Comments FLUORO INTERVENTIONAL PAIN PROCEDURE NONBILLABLE Routine 05/28/2023 2:03 PM EST documented in this encounter Results * FLUORO INTERVENTIONAL PAIN PROCEDURE NONBILLABLE (05/28/2023 2:03 PM EST) Narrative Scheduling, Silent - 05/28/2023 2:04 PM EST This procedure will not be read by a Radiologist. Please see operative note. Luis Armando Isidro Barrientos RAD FLUOROSCOPY documented in this encounter Administered Medications Inactive Administered Medications - up to 3 most recent administrations Medication Order MAR Action Action Date Dose Rate Site dexamethasone sod phosphate PF (Decadron) 10 MG/ML inj 8 mg 8 mg, Intramuscular, ONCE, On 05/28/23 at 1345, For 1 dose, PROTECT FROM LIGHT Given 05/28/2023 1:48 PM EST 10 mg Other-Specify Iohexol (Omnipaque 180) inj 1 mL 1 mL, Intravenous, ONCE, On 05/28/23 at 1345, For 1 dose Given 05/28/2023 1:46 PM EST 2 mL lidocaine 1 % inj 20 mg 20 mg (2 mL), Subcutaneous, ONCE, On 05/28/23 at 1345, For 1 dose Given 05/28/2023 1:42 PM EST 5 mL O ther-Specify documented in this encounter Active and Recently Administered Medications Times are shown in EST. Scheduled Medication Order 05/26/2023 05/27/2023 05/28/2023 dexamethasone sod phosphate PF (Decadron) 10 MG/ML inj 8 mg (COMPLETED) 8 mg, Intramuscular, ONCE, On 05/28/23 at 1345, For 1 dose, PROTECT FROM LIGHT 1348 (Given - Provid er: Ne Palomares RN) Iohexol (Omnipaque 180) inj 1 mL (COMPLETED) 1 mL, Intravenous, ONCE, On 05/28/23 at 1345, For 1 dose 1346 (Given - Provid er: Ne Palomares RN) lidocaine 1 % inj 20 mg (COMPLETED) 20 mg (2 mL), Subcutaneous, ONCE, On 05/28/23 at 1345, For 1 dose 1342 (Given - Provid er: Ne Palomares RN - Comment: right lumbar l4) documented in this encounter Additional Health Concerns Infection Onset Date Last Indicated Resolved Time 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
--- NOTE | 2023-08-31 09:02 | Cardiology Progress Note ---
Date of Service August 31, 2023 Assessment & Plan (1) ST elevation (STEMI) myocardial infarction: (2) Hypertension: (3) Dyslipidemia: (4) Cardiomyopathy: Plan ASSESSMENT/PLAN: 1. Acute STEMI: Appear to be associated with a stress cardiomyopathy. No acute coronary syndrome. 2. Hypertension: Continue lisinopril. Carvedilol added. We will increase as tolerated. 3. Dyslipidemia: LDL appears well controlled on current medical regimen. 4. Stress cardiomyopathy: This appears to be most likely diagnosis for the patient's EKG changes, symptoms and findings on echocardiogram. Fortunately, no evidence of decompensated heart failure. Symptoms have resolved entirely. While he did have systolic anterior motion of the mitral valve, no evidence of outflow tract obstruction. I think we will continue his current medical regimen which includes beta blockade and Abisai inhibition. We can add an SG LT 2 inhibitor as well. I would suggest observation over the course of the day while we add medications. In the absence of any new symptoms or findings would anticipate discharge tomorrow. Admission and Anticipated Discharge Date Admission Date: August 30, 2023 Subjective This morning the patient claimed he feeling well. His symptoms which resulted in his hospitalization yesterday resolved entirely. No chest pressure or pain. No discomfort at the right radial access site. No pain in the right hand. He has been ambulatory around the room without significant dyspnea or dizziness. Review of Systems Review of Systems: Per HPI Physical Exam Physical Exam: The patient is alert and oriented. Mood and affect appeared normal. He answered all questions appropriately. HEENT: Pupils are equal and reactive to light and accommodation. Extraocular movements are intact. The sclerae are anicteric. Neuro: Cranial nerves intact Lungs: Occasional crackle in the left base. Otherwise clear. Normal respiratory effort. No expiratory wheezing. Cardiac: Heart demonstrates a regular rate and rhythm. Normal S1 and S2. No murmurs on examination. Pulses: The patient has palpable radial pulses bilaterally that are equal in intensity Extremities: There was no evidence of hypoperfusion. There is no cyanosis or clubbing. There is no edema. Good perfusion of the right hand Skin: I did not appreciate any rashes on examination today. Results & Data Vital Signs (Past 12 Hours) Vital Signs Temp Pulse Resp BP Pulse Ox O2 Del Method 08/31/23 07:45 36.9 C 90 18 143/82 H 97 Room Air 08/31/23 03:48 36.6 C 74 17 144/77 H 98 Room Air 08/30/23 23:59 36.7 C 81 16 145/83 H 96 Room Air Laboratory Results Abnormal Lab Results 08/30/23 08/30/23 08/30/23 12:17 16:15 16:36 WBC 8.60 RBC 4.40 L Hgb 11.8 L Hct 36.3 L MCV 82.5 MCH 26.8 MCHC 32.5 RDW Std Deviation 39.9 RDW Coeff of Herb 13.2 Plt Count 269 MPV 9.1 L Immature Gran % (Auto) 0.7 Neut % (Auto) 66.6 Lymph % (Auto) 23.8 [place] % (Auto) 7.4 Eos % (Auto) 1.0 Baso % (Auto) 0.5 Neut # (Auto) 5.72 Lymph # (Auto) 2.05 [place] # (Auto) 0.64 H Eos # (Auto) 0.09 Baso # (Auto) 0.04 Immature Gran # (Auto) 0.06 PT 10.5 INR 1.0 APTT 29 PTT Ratio 1.1 Sodium 129 L Potassium 4.3 Chloride 94 L Carbon Dioxide 28 Anion Gap 7 BUN 19 Creatinine 0.94 Est Cr Clr Drug Dosing Not Reportable Est GFR ( Amer) 89.0 Est GFR (Non-Af Amer) 76.8 BUN/Creatinine Ratio 20.2 H Glucose 126 H POC Glucose 141 H Estimat Average Glucose Hemoglobin A1c Calcium 10.0 Total Bilirubin 0.7 AST 15 ALT 19 Alkaline Phosphatase 81 Troponin I High Sens 36.5 H 1344.8 H* D Total Protein 9.0 H Albumin 4.5 Globulin 4.5 H Albumin/Globulin Ratio 1.0 Triglycerides Cholesterol LDL Cholesterol, Calc VLDL Cholesterol, Calc HDL Cholesterol Cholesterol/HDL Ratio 08/30/23 08/30/23 08/31/23 18:58 20:57 00:34 WBC RBC Hgb Hct MCV MCH MCHC RDW Std Deviation RDW Coeff of Herb Plt Count MPV Immature Gran % (Auto) Neut % (Auto) Lymph % (Auto) [place] % (Auto) Eos % (Auto) Baso % (Auto) Neut # (Auto) Lymph # (Auto) [place] # (Auto) Eos # (Auto) Baso # (Auto) Immature Gran # (Auto) PT INR APTT PTT Ratio Sodium 127 L Potassium 4.2 Chloride 93 L Carbon Dioxide 24 Anion Gap 10 BUN 20 Creatinine 1.14 Est Cr Clr Drug Dosing 67.9 Est GFR ( Amer) 70.5 Est GFR (Non-Af Amer) 60.8 BUN/Creatinine Ratio 17.5 Glucose 135 H POC Glucose 151 H Estimat Average Glucose Hemoglobin A1c Calcium 9.5 Total Bilirubin AST ALT Alkaline Phosphatase Troponin I High Sens 1344.6 H* 1197.6 H* Total Protein Albumin Globulin Albumin/Globulin Ratio Triglycerides Cholesterol LDL Cholesterol, Calc VLDL Cholesterol, Calc HDL Cholesterol Cholesterol/HDL Ratio 08/31/23 08/31/23 06:44 07:35 WBC 6.78 RBC 4.28 L Hgb 11.5 L Hct 34.9 L MCV 81.5 MCH 26.9 MCHC 33.0 RDW Std Deviation 39.6 RDW Coeff of Herb 13.5 Plt Count 248 MPV 9.1 L Immature Gran % (Auto) Neut % (Auto) Lymph % (Auto) [place] % (Auto) Eos % (Auto) Baso % (Auto) Neut # (Auto) Lymph # (Auto) [place] # (Auto) Eos # (Auto) Baso # (Auto) Immature Gran # (Auto) PT INR APTT PTT Ratio Sodium 130 L Potassium 4.3 Chloride 93 L Carbon Dioxide 29 Anion Gap 8 BUN 19 Creatinine 0.86 Est Cr Clr Drug Dosing 83.2 Est GFR ( Amer) 95.6 Est GFR (Non-Af Amer) 82.5 BUN/Creatinine Ratio 22.1 H Glucose 139 H POC Glucose 137 H Estimat Average Glucose 143 Hemoglobin A1c 6.6 H Calcium 9.9 Total Bilirubin 0.9 AST 18 ALT 9 Alkaline Phosphatase 62 Troponin I High Sens Total Protein 8.4 H Albumin 4.1 Globulin 4.3 H Albumin/Globulin Ratio 1.0 Triglycerides 149 Cholesterol 144 LDL Cholesterol, Calc 57 VLDL Cholesterol, Calc 30 HDL Cholesterol 57 Cholesterol/HDL Ratio 2.5 Diagnostic Findings Limited echocardiogram performed 08/30/2023: Hyperdynamic basal segments with apical akinesis. Ejection fraction 35-40%. PG Care Time/CCT Total # of Minutes Spent Total Time Spent with Patient: Total time spent is greater than 50% in coordination of care (as documented) at patient's floor/unit and/or counseling patient: Coding Level of Care Code 90573 SUB INP/OBS CARE 2/35MIN Diagnoses ST elevation (STEMI) myocardial infarction I21.3 Hypertension I10 Dyslipidemia E78.5 Cardiomyopathy I42.9
--- NOTE | 2023-08-31 10:08 | XCELERA ---
[id number] [id number]
--- NOTE | 2023-08-31 11:10 | Electrocardiogram Report ---
Test Reason : Blood Pressure : / mmHG Vent. Rate : 079 BPM Atrial Rate : 079 BPM P-R Int : 232 ms QRS Dur : 114 ms QT Int : 394 ms P-R-T Axes : 049 -57 018 degrees QTc Int : 451 ms Sinus rhythm with 1st degree A-V block Left axis deviation Cannot rule out Anterior infarct (cited on or before 30-AUG-2023) T wave abnormality, consider lateral ischemia Abnormal ECG When compared with ECG of 30-AUG-2023 14:11, R-wave progression is better in the precordial leads T wave inversion now evident in Lateral leads Confirmed by Joe Patel ([id number] on 08/31/2023 11:10:16 AM Referred By: REFERRED SELF Confirmed By:Emmett Patel
--- NOTE | 2023-08-31 13:20 | Hospitalist Progress Note ---
Date of Service August 31, 2023 Assessment & Plan (1) Chest pain: (2) Cardiomyopathy: (3) Abnormal EKG: Plan: Patient is 78 year old male with PMH DM II, HTN, dyslipidemia, depression, chronic hyponatremia, GERD and others listed below presented to ER with c/o ch est pressure, SOB. STEMI Stress-induced cardiomyopathy Patient presented with chest pain and shortness of breath EKG on admission personally reviewed; sinus rhythm with first-degree AV block; nonspecific ST wave changes. High sensitive troponin was 36 on presentation; increased to 1300 and down trended Stat echocardiogram showed large area of apical/LAD territory dyskinesis. Patient underwent left cardiac cath; found to have mild CAD. Continue on aspirin, Coreg, lisinopril. Jardiance added as per cardiology recommendation. Continue on simvastatin Telemetry monitoring (4) Chronic hyponatremia: Plan: Sodium of 130. Will DC hydrochlorothiazide Continue to monitor (5) Elevated blood protein: Plan: Total Protein 9.0, was 8.5 05/2023 Total protein of 8.4 Follow-up as outpatient (6) Hypertension: Plan: BP elevated in ER Continue lisinopril, dc HCTZ Carvedilol 3.125mg BID started (7) Dyslipidemia: Plan: Continue simvastatin (8) DM type 2 (diabetes mellitus, type 2): Plan: A1c: 6.7 on 04/08/23 Hold home metformin Novolog sliding scale per protocol (9) GERD (gastroesophageal reflux disease): Plan: Continue Pepcid (10) Depression: Plan: Continue citalopram DVT Prophylaxis Heparin SQ Full Code as per discussion with pt Time spent evaluating patient, direct bedside care, chart review, placing orders, interpretation of diagnostic studies, discussion with consultants, patient, and family members, as well as other required patient management activities is 50-minute Please note the above document was generated using voice recognition software. It may contain grammatical, syntax or spelling errors. Any formal questions or concerns about the content, text or information contained within the body of this dictation should be directly addressed to the provider for clarification Admission and Anticipated Discharge Date Admission Date: August 30, 2023 Subjective Patient seen and examined at bedside. He is comfortably sitting up on the bed; not in distress He denies any chest pain or discomfort at this time No significant events overnight Review of Systems Review of Systems: All systems reviewed & are unremarkable except as noted in Subjective Physical Exam Physical Exam: Constitutional: WD/WN, vitals as above, NAD, sitting up in bed, pleasant, conversing easily Respiratory: normal respiratory effort, lungs clear to auscultation, no wheeze, rales, rhonchi. Normal insp/exp effort, no accessory muscle use Cardiovascular: RRR, no murmur, no edema Vessels: no JVD or carotid bruit Chest: normal inspection of chest Abdomen: normal bowel sounds, soft, nontender, no hepatosplenomegaly Musculoskeletal: no cyanosis or clubbing, extremities motor strength 5/5 Skin: no rashes, warm and dry normal turgor Neurologic: PERRL, EOMI, accommodation nl, no face palsy, no dysarthria CN's II- XI intact bilaterally and moves all extremities Psychiatric: A+Ox3, euthymic affect Results & Data Results & Data Vital Signs (Past 12 Hours) Vital Signs Temp Pulse Pulse Resp BP Pulse Ox O2 Del Method 08/31/23 12:01 36.9 C 83 16 97/64 L 08/31/23 09:22 82 08/31/23 07:45 36.9 C 90 18 143/82 H 97 Room Air 08/31/23 03:48 36.6 C 74 17 144/77 H 98 Room Air
[2023-09-01] MEDS: EMPAGLIFLOZIN 10 MG TAB PO SCH (08:37)
[2023-09-01 08:38] LABS: BUN Creatinine Ratio 26.8 (10-20); Calcium 9.8 mg/dl (8.6-10.3); Creatinine Clr Calc Pharmacy 73.8 ml/min; Est GFR (African American) 85.7 ml/min; Est GFR (Non-African American) 73.9 ml/min; Potassium 4.5 mmol/L (3.5-5.1)
--- NOTE | 2023-09-01 09:15 | Cardiology Progress Note ---
Date of Service September 01, 2023 Assessment & Plan (1) ST elevation (STEMI) myocardial infarction: (2) Hypertension: (3) Dyslipidemia: (4) Cardiomyopathy: Plan ASSESSMENT/PLAN: 1. Acute STEMI: Appear to be associated with a stress cardiomyopathy. No acute coronary syndrome. 2. Hypertension: Continue lisinopril. Carvedilol added. I think we can increase the carvedilol dose to 6.25 mg twice daily. 3. Dyslipidemia: LDL appears well controlled on current medical regimen. 4. Stress cardiomyopathy: No additional symptoms. No evidence of decompensated he seems to be tolerating medical therapy. I think he would be safe for discharge. He can continue his current dose of lisinopril and Jardiance. I would increase carvedilol to 6.25 mg daily. I will request a follow-up appointment in our clinic within the next couple of weeks. Admission and Anticipated Discharge Date Admission Date: August 30, 2023 Subjective This morning patient claims to be feeling well. He reported ambulating around the yoder several times yesterday. No symptoms of dizziness, dyspnea or recurrent chest pain. Review of Systems Review of Systems: Per HPI Physical Exam Physical Exam: The patient is alert and oriented. Mood and affect appeared normal. He answered all questions appropriately. HEENT: Pupils are equal and reactive to light and accommodation. Extraocular movements are intact. The sclerae are anicteric. Neuro: Cranial nerves intact Lungs: Clear lung mendes bilaterally. Normal respiratory effort. No expiratory wheezing. Cardiac: Heart demonstrates a regular rate and rhythm. Normal S1 and S2. No murmurs on examination. Pulses: The patient has palpable radial pulses bilaterally that are equal in intensity Extremities: There was no evidence of hypoperfusion. There is no cyanosis or clubbing. There is no edema. Good perfusion of the right hand Skin: I did not appreciate any rashes on examination today. Results & Data Vital Signs (Past 12 Hours) Vital Signs Temp Pulse Pulse Resp BP Pulse Ox O2 Del Method 09/01/23 07:41 36.6 C 82 18 128/73 96 Room Air 09/01/23 07:38 71 09/01/23 02:54 36.8 C 77 20 114/72 96 Room Air 08/31/23 22:09 36.8 C 80 18 130/74 95 Room Air Laboratory Results Abnormal Lab Results 08/31/23 08/31/23 08/31/23 11:31 16:01 20:33 Sodium Potassium Chloride Carbon Dioxide Anion Gap BUN Creatinine Est Cr Clr Drug Dosing Est GFR ( Amer) Est GFR (Non-Af Amer) BUN/Creatinine Ratio Glucose POC Glucose 151 H 114 H 167 H Calcium 09/01/23 09/01/23 07:09 07:30 Sodium 127 L Potassium 4.5 Chloride 90 L Carbon Dioxide 30 Anion Gap 7 BUN 26 H Creatinine 0.97 Est Cr Clr Drug Dosing 73.8 Est GFR ( Amer) 85.7 Est GFR (Non-Af Amer) 73.9 BUN/Creatinine Ratio 26.8 H Glucose 139 H POC Glucose 138 H Calcium 9.8 PG Care Time/CCT Total # of Minutes Spent Total Time Spent with Patient: Total time spent is greater than 50% in coordination of care (as documented) at patient's floor/unit and/or counseling patient: Coding Level of Care Code 93564 SUB INP/OBS CARE 2/35MIN Diagnoses ST elevation (STEMI) myocardial infarction I21.3 Involved coronary artery: unspecified coronary artery Hypertension I10 Dyslipidemia E78.5 Cardiomyopathy I42.9 (1) ST elevation (STEMI) myocardial infarction Involved coronary artery: unspecified coronary artery Qualified Code(s): I21.3 - ST elevation (STEMI) myocardial infarction of unspecified site
--- NOTE | 2023-09-01 12:47 | Discharge Summary ---
Date of Service September 01, 2023 Admission HPI Per Admitting Provider Patient is 78 year old male with PMH DM II, HTN, dyslipidemia, depression, chronic hyponatremia, GERD and others listed below presented to ER with c/o CP. History obtained from patient and outpatient chart review. Patient states today started with mid chest pressure with radiation to shoulder around noon while he was at restaurant. He was sitting and did not eat yet when pain started. Also reports SOB. Denies diaphoresis or palpitations or dizziness. Family reports he looked pale. Patient reported CP 8 out of 10 on pain scale. He was given 324mg aspirin, 2 SL nitro and has nitro paste in place in ER and rates pain 5 out of 10. Currently upon my evaluation patient rates pain 3 out of 10. Patient had noted evolving EKG changes in ER. In ER he has received IV heparin and Brilinta ordered. Cardiology at bedside and plans to take patient to skilled laborer. Denies fever/chills, N/V/D/C, GARCIA, dizziness, syncope, vision changes, orthopnea, cough, sore throat, rhinorrhea, abdominal pain, paresthesias, extremity weakness, extremity edema, rashes, urinary symptoms. Admission Exam Per Admitting Provider General: mild distress secondary to chest discomfort, WDWN Head: normocephalic, atraumatic Eyes: conjunctiva non-injected, anicteric ENT: normal inspection external ears, nose, mucous membranes moist Neck: supple, trachea midline Lungs: clear, no respiratory distress, no wheezing/rhonchi/rales CV: RRR, no murmur, no pretibial edema Abd: normal BS, soft, non-tender Ext: no cyanosis, no calf tenderness Neuro: A&O x 3, no focal deficits noted, normal affect Skin: warm, dry Principal Diagnosis Acute STEMI Stress-induced cardiomyopathy Discharge Exam Constitutional: WD/WN, vitals as above, NAD, sitting up in bed, pleasant, conversing easily Respiratory: normal respiratory effort, lungs clear to auscultation, no wheeze, rales, rhonchi. Normal insp/exp effort, no accessory muscle use Cardiovascular: RRR, no murmur, no edema Vessels: no JVD or carotid bruit Chest: normal inspection of chest Abdomen: normal bowel sounds, soft, nontender, no hepatosplenomegaly Musculoskeletal: no cyanosis or clubbing, extremities motor strength 5/5 Skin: no rashes, warm and dry normal turgor Neurologic: PERRL, EOMI, accommodation nl, no face palsy, no dysarthria CN's II- XI intact bilaterally and moves all extremities Psychiatric: A+Ox3, euthymic affect Discharge Data Allergies Allergy/AdvReac Type Severity Reaction Status Date / Time Penicillins Allergy Unknown unsure Verified 03/01/22 19:10 Consultations 08/30/23 14:16 ED Decision to Admit Stat 08/30/23 16:13 Consult Cardiology Routine Procedures Performed Operation Date: 08/30/23 14:30 Actual Procedures p Cineradiography w/Routine Exam - Joe Balderrama MD p Cath, Left with Cors and Vent - Joe Balderrama MD Ordered Studies 08/30/23 14:34 CL Cath Imgs for PACS use only Stat Hospital Course (1) Chest pain: (2) Cardiomyopathy: (3) Abnormal EKG: Patient is 78 year old male with PMH DM II, HTN, dyslipidemia, depression, chronic hyponatremia, GERD and others listed below presented to ER with c/o chest pressure, SOB. STEMI Stress-induced cardiomyopathy Patient presented with chest pain and shortness of breath EKG on admission personally reviewed; sinus rhythm with first-degree AV block; nonspecific ST wave changes. High sensitive troponin was 36 on presentation; increased to 1300 and down trended Stat echocardiogram showed large area of apical/LAD territory dyskinesis. Patient underwent left cardiac cath; found to have mild CAD. Patient evaluated by cardiology; started on Coreg 6.25 mg twice daily, Jardiance was added. Cardiology recommend outpatient follow-up. Patient did not have any significant arrhythmia on telemetry during the hospitalization. (4) Chronic hyponatremia: presented with Sodium of 130. Hydrochlorothiazide discontinued Follow-up with PCP and repeat BMP to check on serum sodium level Total Time Total Time Spent Total Time Spent (In Minutes): 45 Total Time Includes: Examination of the Patient, Discharge Planning, Medication Reconciliation, Communication With Other Providers and Other Discharge Plan Discharge Items Patient Disposition: Home - Self-Care Reason For Visit: NSTEMI Activity: Resume your previous activity Non-emergency contact: Primary Care Provider Call non-emergency contact if: you have any medication questions and your symptoms worsen Follow-up/Referrals: Arin Tay PA-C [Primary Care Provider] - Diet: Regular Fluids: 1200ml (5 cups) Addtl Attending Provider Instructions: You were admitted to the hospital due to chest pain. Evaluation during the hospitalization revealed a stress-induced cardiomyopathy. The tester sound evaluated you and recommends following medication changes: 1) STOP taking hydrochlorothiazide. It will lower your sodium level. 2) start taking Jardiance 10 mg once a day. 3) start taking Coreg 6.25 mg twice a day. An appointment with your primary care doctor will be made for you. You need a repeat blood work to check on your sodium level. Cardiology will also call you with an appointment. Pending Studies at Discharge: No Stand-Alone Forms: [facility] [employer], Smoking Cessation Medications and DC Order Prescriptions: New Jardiance 10 mg Tablet 10 mg PO DAILY Qty: 30 0RF carvedilol [Coreg] 6.25 mg tablet 6.25 mg PO BID Qty: 60 0RF Rx Instructions: must administer with a meal/food Continued simvastatin [Zocor] 20 mg Tablet 20 mg PO PM Qty: 0 metformin 500 mg tablet 1,000 mg PO QAM carbidopa-levodopa 25-250 mg tablet 1 tab PO HS Rx Instructions: TAKE ONNE TAB AT BEDTIME FOR RESTLESS LEGS metformin 500 mg tablet 500 mg PO .MARCEL MEAL citalopram 20 mg tablet 20 mg PO DAILY famotidine 40 mg tablet 40 mg PO DAILY lisinopril 20 mg Tablet 20 mg PO DAILY Qty: 30 0RF aspirin 81 mg tablet,delayed release (DR/EC) 81 mg PO DAILY gabapentin 300 mg capsule 600 mg PO BID Discontinued hydrochlorothiazide 25 mg tablet 25 mg PO DAILY Discharge Orders: Discharge Order (Routine); Ordered 09/01/23 Ordered By: Robert Phillips/Other Patient Handouts: Managing Type 2 Diabetes Admission Data Admit Date/Time: 08/30/23 15:23 Attending Provider: Robert Neville Admit Provider: Louisa Geiger Primary Care Provider: Arin Tay Other Providers: Louisa Geiger; Fernandez Valero Other Interventions: Discharge Summary Assessment (RN) Last Done: 09/01/23 12:27
[2023-09-03 08:08] LABS: Albumin 3.7 g/dL (3.8-4.8); Alpha 1 Globulin 0.4 g/dL (0.2-0.3); Beta-1-Globulin 0.5 g/dL (0.4-0.6); Beta-2-Globulin 0.5 g/dL (0.2-0.5); Gamma Globulin 1.6 g/dL (0.8-1.7); Monoclonal Protein Band 1 DNR g/dL (NONE DETECTED); Monoclonal Protein Band 2 DNR g/dL (NONE DETECTED); Monoclonal Protein Band 3 DNR g/dL (NONE DETECTED); Total Protein 7.7 g/dL (6.1-8.1)
== END 2023-09-01 13:40 | disposition home or self-care (01) | DRG 287 ==
LOC: ED 12:04 → SUATTDRO 15:23 → 2E 15:23